=== PATIENT | male | born 1975 | race Caucasian/White ===

== ENCOUNTER 2022-04-02 16:19 | Inpatient (IN) | payer OTHER, SELFPAY ==
--- NOTE | 2022-04-02 16:55 | ED.PSYCH ---
HPI - Psych General Chief Complaint: Psychiatric Symptoms <DEREK Tyler Last Filed: 04/02/22 18:20> Stated Complaint: sect 12 increased depression <DEREK Tyler Last Filed: 04/02/22 18:20> Time Seen by Provider: 04/02/22 16:42 <DEREK Tyler Last Filed: 04/02/22 18:20> Source: patient and RN notes reviewed <DEREK Tyler Last Filed: 04/02/22 18:20> Mode of arrival: EMS <DEREK Tyler Last Filed: 04/02/22 18:20> Limitations: no limitations <DEREK Tyler Last Filed: 04/02/22 18:20> History of Present Illness HPI Narrative: 46-year-old male with a history of schizophrenia presenting with increased depression. The patient arrives from [facility] in [place], [place] where he states he has been having trouble sleeping and has been feeling as though his thoughts are racing and that he cannot slow them down. This has been causing him to feel agitated and uneasy. He also reports that he stopped smoking 6 days ago which has also been contributing to this. He denies any auditory, visual, or tactile hallucinations. He denies any SI or HI. He states that he has been taking all of his psychiatric medications as prescribed though the staff at the [facility] told him that he may need to have his medications adjusted due to his current symptoms which is why he presents today. He denies any chest pain, shortness of breath, dizziness, headache, vision changes, fever, or chills. <DEREK Tyler Last Filed: 04/02/22 18:20> MD complaint: feels depressed and anxiety <DEREK Tyler Last Filed: 04/02/22 18:20> Related Data Home Medications: Home Medications Medication Instructions Recorded Confirmed liua root extract 500 mg 500 mg PO DAILY 04/02/22 04/02/22 capsule duloxetine 60 mg capsule,delayed 1 cap PO QAM 04/02/22 04/02/22 release fenofibrate 160 mg tablet 1 tab PO DAILY 04/02/22 04/02/22 losartan 50 mg tablet 1 tab PO DAILY 04/02/22 04/02/22 metformin 500 mg tablet 1 tab PO DAILY 04/02/22 04/02/22 ziprasidone HCl 40 mg capsule 1 cap PO BID 04/02/22 04/02/22 zolpidem 10 mg tablet 1 tab PO BEDTIME PRN insomnia 04/02/22 04/02/22 <DEREK Tyler Last Filed: 04/02/22 18:20> Allergies/Adverse Reactions: Allergies Allergy/AdvReac Type Severity Reaction Status Date / Time No Known Allergies Allergy Unverified 04/12/20 19:45 [No Known Allergies*] <DEREK Tyler Last Filed: 04/02/22 18:20> Review of Systems Review of Systems: Constitutional : No Weight loss, No Fever, No Chills, No Fatigue, No Malaise ENT/Mouth : No sore throat, No Rhinorrhea Eyes: No Eye Pain, No Swelling, No Redness Cardiovascular : No Chest Pain, No SOB, No Dyspnea on Exertion, No Orthopnea, No Edema, No Palpitations Respiratory : No Cough, No Sputum, No Wheezing Gastrointestinal : No Nausea, No Vomiting, No Diarrhea, No Constipation, No abdominal Pain, No Hematochezia, No Melena Genitourinary : No Dysuria, No Urinary Frequency, No Hematuria, Musculoskeletal : No joint pain, No Myalgias, No Joint Swelling Skin : No Skin Lesions, No rash Neuro : No Weakness, No Numbness, No Dizziness, No Headache Psych : +anxiety +depression All other systems reviewed and are negative <DEREK Tyler Last Filed: 04/02/22 18:20> Yes all other systems are reviewed and are negative <DEREK Tyler Last Filed: 04/02/22 18:20> [facility] Past Medical History Attestation statement: The following information was validated with the patient. <DEREK Tyler Last Filed: 04/02/22 18:20> Source: old records reviewed and nursing notes reviewed <DEREK Tyler Last Filed: 04/02/22 18:20> Social History Social History: Social History Advance Directives: No Advance Directives Information Provided: No <DEREK Tyler - Last Filed: 04/02/22 18:20> Physical Exam Vital Signs: Vital Signs: Last Vital Signs Temp 97.1 F 04/03/22 04:55 Pulse 74 04/03/22 04:55 Resp 17 04/03/22 04:55 BP 144/64 H 04/03/22 04:55 Pulse Ox 96 04/03/22 04:55 O2 Del Method 04/03/22 04:55 BMI result Body Mass Index 30.7 vss <DEREK Tyler - Last Filed: 04/02/22 18:20> Vital Signs: Last Vital Signs Temp 97.1 F 04/03/22 04:55 Pulse 74 04/03/22 04:55 Resp 17 04/03/22 04:55 BP 144/64 H 04/03/22 04:55 Pulse Ox 96 04/03/22 04:55 O2 Del Method 04/03/22 04:55 BMI result Body Mass Index 30.7 <Leonid Oswald MD - Last Filed: 04/03/22 06:30> Appearance: Alert.? Oriented X3.? No acute distress.? Head: Normocephalic, atraumatic, no step-offs or deformities Eyes: Pupils equal, round and reactive to light.? Neck: Normal inspection.? Neck supple.? CVS: Normal heart rate and rhythm.? Pulses normal.? Respiratory: No respiratory distress.? Breath sounds normal.? Abdomen: Soft and nontender.? Skin: Skin warm and dry.? Normal skin color.? Normal skin turgor.? Extremities: No lower extremity edema.? No calf ttp. 5/5 strength to bilateral upper and lower extremities Neuro: Oriented X 3.? No motor deficit.? No sensory deficit. CN 2-12 intact <DEREK Tyler - Last Filed: 04/02/22 18:20> Course Reevaluation(s) Reevaluation #1: CBC and chemistry is within normal limits. UA is negative. U tox is positive for marijuana. COVID-19 negative. Behavioral health evaluation pending. At this time, patient will be placed into physician observation to allow more time for BHN evaluation. At time of placement, patient was calm, cooperative, and stable. Will continue to monitor. <DEREK Tyler - Last Filed: 04/02/22 18:20> CBC and chemistry is within normal limits. UA is negative. U tox is positive for marijuana. COVID-19 negative. Behavioral health evaluation pending. At this time, patient will be placed into physician observation to allow more time for BHN evaluation. At time of placement, patient was calm, cooperative, and stable. Will continue to monitor. <Leonid Oswald MD - Last Filed: 04/03/22 06:30> Time: 18:00 <DEREK Tyler - Last Filed: 04/02/22 18:20> MDM - Psych MDM Narrative Medical decision making narrative: 16:45 46 y/o male with a PMHx of schizophrenia who presents with anxiety, depression, and agitation. Reports lack of sleep and feeling restless recently. Also dealing with tobacco withdrawal. Compliant with medications. PE is unremarkable. Plan to obtain basic labs, ethanol level, urine toxicology, and medically clear. Will consult behavioral health for evaluation. <DEREK Tyler - Last Filed: 04/02/22 18:20> Medical Records Attestation: I reviewed the patient's medical records. <DEREK Tyler - Last Filed: 04/02/22 18:20> Lab Data Attestation: I reviewed the patient's lab results. <DEREK Tyler - Last Filed: 04/02/22 18:20> Result diagrams: : 04/02/22 17:34 04/02/22 17:34 <DEREK Tyler - Last Filed: 04/02/22 18:20> Labs: Lab Results 04/02/22 04/02/22 04/02/22 Range/Units 16:50 16:50 16:50 WBC (4.8-10.8) X10*3/uL RBC (4.60-5.80) X10*6/uL Hgb (14.0-18.0) g/dl Hct (42.0-52.0) % MCV (80.0-98.0) fL MCH (27.0-33.0) pg MCHC (31.0-36.0) g/dl RDW (11.0-16.0) % Plt Count (160-400) X10*3/uL MPV (9.4-12.4) fL Immature Gran % (Auto) (0.0-0.4) % Neut % (Auto) (45-73) % Lymph % (Auto) (20-40) % [place] % (Auto) (2-11) % Eos % (Auto) (0-4) % Baso % (Auto) (0-2) % Lymph # (Auto) (1.2-4.9) X10*3/uL [place] # (Auto) (0.1-1.2) X10*3/uL Eos # (Auto) (0.0-0.4) X10*3/uL Baso # (Auto) (0.0-0.2) X10*3/uL Abs Immat Gran (auto) (0.00-0.03) X10*3/uL Absolute Neuts (auto) (2.0-8.3) x10*3/uL Absolute Nucleated RBC (0.0-0.012) X10*3/uL Nucleated RBC % (auto) (0.0-0.2) /100WBC Sodium (135-145) mmol/L Potassium (3.3-5.1) mmol/L Chloride (96-108) mmol/L Carbon Dioxide (22-29) mmol/L Anion Gap (12-20) BUN (9-16) mg/dL Creatinine (0.5-1.4) mg/dL Estim Creat Clear Calc Estimated GFR Random Glucose (60-115) mg/dL Calcium (8.4-10.2) mg/dL Magnesium (1.6-2.6) mg/dL Total Bilirubin (0.0-1.0) mg/dL AST (5-37) U/L ALT (0-40) U/L Alkaline Phosphatase (39-117) U/L Total Protein (6.5-8.0) g/dL Albumin (3.5-5.0) g/dL Urine Color Yellow Urine Appearance Clear Urine pH 6.0 (5.0-9.0) Ur Specific [place] <= 1.005 (1.005-1.025) Urine Protein Negative (Neg-Trace) mg/dL Urine Glucose (UA) Negative (Negative) mg/dL Urine Ketones Negative (Negative) mg/dL Urine Blood Negative (Negative) Urine Nitrite Negative (Negative) Ur Leukocyte Esterase Negative (Negative) Urine Opiates Screen Not Detected (Not Detect) Urine Fentanyl Screen Not Detected (Not Detect) Ur Barbiturates Screen Not Detected (Not Detect) Ur Phencyclidine Scrn Not Detected (Not Detect) Ur Amphetamines Screen Not Detected (Not Detect) U Benzodiazepines Scrn Not Detected (Not Detect) Urine Cocaine Screen Not Detected (Not Detect) U Marijuana (THC) Screen POSITIVE H (Not Detect) Ethyl Alcohol mg/dL COVID-19 (ZAIDA) Negative (Negative) COVID-19 Clin Com See Note 04/02/22 04/02/22 Range/Units 17:34 17:34 WBC 9.1 (4.8-10.8) X10*3/uL RBC 4.43 L (4.60-5.80) X10*6/uL Hgb 14.1 (14.0-18.0) g/dl Hct 40.3 L (42.0-52.0) % MCV 91.0 (80.0-98.0) fL MCH 31.8 (27.0-33.0) pg MCHC 35.0 (31.0-36.0) g/dl RDW 12.4 (11.0-16.0) % Plt Count 256 (160-400) X10*3/uL MPV 11.2 (9.4-12.4) fL Immature Gran % (Auto) 0.3 (0.0-0.4) % Neut % (Auto) 59.6 (45-73) % Lymph % (Auto) 27.8 (20-40) % [place] % (Auto) 6.4 (2-11) % Eos % (Auto) 4.9 H (0-4) % Baso % (Auto) 1.0 (0-2) % Lymph # (Auto) 2.5 (1.2-4.9) X10*3/uL [place] # (Auto) 0.6 (0.1-1.2) X10*3/uL Eos # (Auto) 0.4 (0.0-0.4) X10*3/uL Baso # (Auto) 0.1 (0.0-0.2) X10*3/uL Abs Immat Gran (auto) 0.03 (0.00-0.03) X10*3/uL Absolute Neuts (auto) 5.4 (2.0-8.3) x10*3/uL Absolute Nucleated RBC 0.000 (0.0-0.012) X10*3/uL Nucleated RBC % (auto) 0.0 (0.0-0.2) /100WBC Sodium 140 (135-145) mmol/L Potassium 4.0 (3.3-5.1) mmol/L Chloride 105 (96-108) mmol/L Carbon Dioxide 23 (22-29) mmol/L Anion Gap 16 (12-20) BUN 8 L (9-16) mg/dL Creatinine 1.08 (0.5-1.4) mg/dL Estim Creat Clear Calc 103.9 Estimated GFR > 60 Random Glucose 104 (60-115) mg/dL Calcium 9.5 (8.4-10.2) mg/dL Magnesium 2.0 (1.6-2.6) mg/dL Total Bilirubin 0.3 (0.0-1.0) mg/dL AST 28 (5-37) U/L ALT 38 (0-40) U/L Alkaline Phosphatase 43 (39-117) U/L Total Protein 7.1 (6.5-8.0) g/dL Albumin 4.4 (3.5-5.0) g/dL Urine Color Urine Appearance Urine pH (5.0-9.0) Ur Specific [place] (1.005-1.025) Urine Protein (Neg-Trace) mg/dL Urine Glucose (UA) (Negative) mg/dL Urine Ketones (Negative) mg/dL Urine Blood (Negative) Urine Nitrite (Negative) Ur Leukocyte Esterase (Negative) Urine Opiates Screen (Not Detect) Urine Fentanyl Screen (Not Detect) Ur Barbiturates Screen (Not Detect) Ur Phencyclidine Scrn (Not Detect) Ur Amphetamines Screen (Not Detect) U Benzodiazepines Scrn (Not Detect) Urine Cocaine Screen (Not Detect) U Marijuana (THC) Screen (Not Detect) Ethyl Alcohol < 10 mg/dL COVID-19 (ZAIDA) (Negative) COVID-19 Clin Com <DEREK Tyler - Last Filed: 04/02/22 18:20> Lab Results 04/02/22 04/02/22 04/02/22 Range/Units 16:50 16:50 16:50 WBC (4.8-10.8) X10*3/uL RBC (4.60-5.80) X10*6/uL Hgb (14.0-18.0) g/dl Hct (42.0-52.0) % MCV (80.0-98.0) fL MCH (27.0-33.0) pg MCHC (31.0-36.0) g/dl RDW (11.0-16.0) % Plt Count (160-400) X10*3/uL MPV (9.4-12.4) fL Immature Gran % (Auto) (0.0-0.4) % Neut % (Auto) (45-73) % Lymph % (Auto) (20-40) % [place] % (Auto) (2-11) % Eos % (Auto) (0-4) % Baso % (Auto) (0-2) % Lymph # (Auto) (1.2-4.9) X10*3/uL [place] # (Auto) (0.1-1.2) X10*3/uL Eos # (Auto) (0.0-0.4) X10*3/uL Baso # (Auto) (0.0-0.2) X10*3/uL Abs Immat Gran (auto) (0.00-0.03) X10*3/uL Absolute Neuts (auto) (2.0-8.3) x10*3/uL Absolute Nucleated RBC (0.0-0.012) X10*3/uL Nucleated RBC % (auto) (0.0-0.2) /100WBC Sodium (135-145) mmol/L Potassium (3.3-5.1) mmol/L Chloride (96-108) mmol/L Carbon Dioxide (22-29) mmol/L Anion Gap (12-20) BUN (9-16) mg/dL Creatinine (0.5-1.4) mg/dL Estim Creat Clear Calc Estimated GFR Random Glucose (60-115) mg/dL Calcium (8.4-10.2) mg/dL Magnesium (1.6-2.6) mg/dL Total Bilirubin (0.0-1.0) mg/dL AST (5-37) U/L ALT (0-40) U/L Alkaline Phosphatase (39-117) U/L Total Protein (6.5-8.0) g/dL Albumin (3.5-5.0) g/dL Urine Color Yellow Urine Appearance Clear Urine pH 6.0 (5.0-9.0) Ur Specific [place] <= 1.005 (1.005-1.025) Urine Protein Negative (Neg-Trace) mg/dL Urine Glucose (UA) Negative (Negative) mg/dL Urine Ketones Negative (Negative) mg/dL Urine Blood Negative (Negative) Urine Nitrite Negative (Negative) Ur Leukocyte Esterase Negative (Negative) Urine Opiates Screen Not Detected (Not Detect) Urine Fentanyl Screen Not Detected (Not Detect) Ur Barbiturates Screen Not Detected (Not Detect) Ur Phencyclidine Scrn Not Detected (Not Detect) Ur Amphetamines Screen Not Detected (Not Detect) U Benzodiazepines Scrn Not Detected (Not Detect) Urine Cocaine Screen Not Detected (Not Detect) U Marijuana (THC) Screen POSITIVE H (Not Detect) Ethyl Alcohol mg/dL COVID-19 (ZAIDA) Negative (Negative) COVID-19 Clin Com See Note 04/02/22 04/02/22 Range/Units 17:34 17:34 WBC 9.1 (4.8-10.8) X10*3/uL RBC 4.43 L (4.60-5.80) X10*6/uL Hgb 14.1 (14.0-18.0) g/dl Hct 40.3 L (42.0-52.0) % MCV 91.0 (80.0-98.0) fL MCH 31.8 (27.0-33.0) pg MCHC 35.0 (31.0-36.0) g/dl RDW 12.4 (11.0-16.0) % Plt Count 256 (160-400) X10*3/uL MPV 11.2 (9.4-12.4) fL Immature Gran % (Auto) 0.3 (0.0-0.4) % Neut % (Auto) 59.6 (45-73) % Lymph % (Auto) 27.8 (20-40) % [place] % (Auto) 6.4 (2-11) % Eos % (Auto) 4.9 H (0-4) % Baso % (Auto) 1.0 (0-2) % Lymph # (Auto) 2.5 (1.2-4.9) X10*3/uL [place] # (Auto) 0.6 (0.1-1.2) X10*3/uL Eos # (Auto) 0.4 (0.0-0.4) X10*3/uL Baso # (Auto) 0.1 (0.0-0.2) X10*3/uL Abs Immat Gran (auto) 0.03 (0.00-0.03) X10*3/uL Absolute Neuts (auto) 5.4 (2.0-8.3) x10*3/uL Absolute Nucleated RBC 0.000 (0.0-0.012) X10*3/uL Nucleated RBC % (auto) 0.0 (0.0-0.2) /100WBC Sodium 140 (135-145) mmol/L Potassium 4.0 (3.3-5.1) mmol/L Chloride 105 (96-108) mmol/L Carbon Dioxide 23 (22-29) mmol/L Anion Gap 16 (12-20) BUN 8 L (9-16) mg/dL Creatinine 1.08 (0.5-1.4) mg/dL Estim Creat Clear Calc 103.9 Estimated GFR > 60 Random Glucose 104 (60-115) mg/dL Calcium 9.5 (8.4-10.2) mg/dL Magnesium 2.0 (1.6-2.6) mg/dL Total Bilirubin 0.3 (0.0-1.0) mg/dL AST 28 (5-37) U/L ALT 38 (0-40) U/L Alkaline Phosphatase 43 (39-117) U/L Total Protein 7.1 (6.5-8.0) g/dL Albumin 4.4 (3.5-5.0) g/dL Urine Color Urine Appearance Urine pH (5.0-9.0) Ur Specific [place] (1.005-1.025) Urine Protein (Neg-Trace) mg/dL Urine Glucose (UA) (Negative) mg/dL Urine Ketones (Negative) mg/dL Urine Blood (Negative) Urine Nitrite (Negative) Ur Leukocyte Esterase (Negative) Urine Opiates Screen (Not Detect) Urine Fentanyl Screen (Not Detect) Ur Barbiturates Screen (Not Detect) Ur Phencyclidine Scrn (Not Detect) Ur Amphetamines Screen (Not Detect) U Benzodiazepines Scrn (Not Detect) Urine Cocaine Screen (Not Detect) U Marijuana (THC) Screen (Not Detect) Ethyl Alcohol < 10 mg/dL COVID-19 (ZAIDA) (Negative) COVID-19 Clin Com <Leonid Oswald MD - Last Filed: 04/03/22 06:30> Critical Care Time Critical Care Time Critical Care Time: No <DEREK Tyler - Last Filed: 04/02/22 18:20> Discharge Plan Discharge Clinical Impression: Depression, Acute anxiety <DEREK Tyler - Last Filed: 04/02/22 18:20> Patient Disposition: Still a Patient <DEREK Tyler - Last Filed: 04/02/22 18:20> Prescriptions: No Action losartan 50 mg tablet 1 tab PO DAILY metformin 500 mg tablet 1 tab PO DAILY ziprasidone HCl 40 mg capsule 1 cap PO BID zolpidem 10 mg tablet 1 tab PO BEDTIME PRN (Reason: insomnia) duloxetine 60 mg capsule,delayed release(DR/EC) 1 cap PO QAM fenofibrate 160 mg tablet 1 tab PO DAILY ashwagandha root extract 500 mg Capsule 500 mg PO DAILY <DEREK Tyler - Last Filed: 04/02/22 18:20>
[2022-04-02 17:00] VITALS: BP 130/70; BP 136/75; PULSE 70; PULSE 87; RESP 20; TEMP 36.1; O2SAT 97; BMI 30.7
[2022-04-02 17:14] LABS: Appearance Urine Clear; Color Urine Yellow; Glucose Urine UA Negative (Negative); Leukocyte Esterase Urine Negative (Negative); Nitrite Urine Negative (Negative); Specific Gravity - Urine <= 1.005 (1.005-1.025); Urine Blood Negative (Negative); Urine Ketones Negative (Negative); Urine Protein Negative (Neg-Trace)
[2022-04-02 17:27] LABS: COVID-19 Test Negative (Negative); IDNOW Serial# 9DB6401D
[2022-04-02 17:30] LABS: Amphetamine Screen Urine Not Detected (Not Detect); Barbiturates, Urine Not Detected (Not Detect); Benzodiazepines Screen Urine Not Detected (Not Detect); Cannabinoid Screen Urine POSITIVE (Not Detect); Cocaine Screen Urine Not Detected (Not Detect); Fentanyl, urine Not Detected (Not Detect); Opiate Screen Urine Not Detected (Not Detect); Phencyclidine Screen Urine Not Detected (Not Detect)
[2022-04-02 17:39] LABS: MANUAL DIFF FLAG NO
--- NOTE | 2022-04-02 17:39 | PHA.MEDREC ---
Pharmacy Consult ? Medication Reconciliation Pharmacy has completed the medication reconciliation. 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
[2022-04-02 17:55] LABS: Alanine Aminotransferase 38 U/L (0-40); Albumin Level 4.4 g/dL (3.5-5.0); Alkaline Phosphatase 43 U/L (39-117); Anion Gap 16 (12-20); Aspartate Amino Transferase 28 U/L (5-37); Bilirubin Total 0.3 mg/dL (0.0-1.0); Blood Urea Nitrogen 8 mg/dL (9-16); Calcium 9.5 mg/dL (8.4-10.2); Carbon Dioxide 23 mmol/L (22-29); Chloride 105 mmol/L (96-108); Creatinine Clr Calc Pharmacy 103.9; Estimated Glomerular Filt Rate > 60; Ethanol < 10 mg/dL; Glucose Random 104 mg/dL (60-115); Sodium 140 mmol/L (135-145); Total Protein 7.1 g/dL (6.5-8.0)
[2022-04-02 18:04] LABS: Basophils Absolute Auto 0.1 X10*3/uL (0.0-0.2); Eosinophils Absolute Auto 0.4 X10*3/uL (0.0-0.4); Eosinophils Percent Auto 4.9 % (0-4); Hematocrit 40.3 % (42.0-52.0); Hemoglobin 14.1 g/dl (14.0-18.0); Imm Gran Abs Auto 0.03 X10*3/uL (0.00-0.03); Imm Gran Pct Auto 0.3 % (0.0-0.4); Lymphocytes Absolute Auto 2.5 X10*3/uL (1.2-4.9); Lymphocytes Percent Auto 27.8 % (20-40); Mean Corpuscular Hemoglobin 31.8 pg (27.0-33.0); Mean Platelet Volume 11.2 fL (9.4-12.4); Monocytes Absolute Auto 0.6 X10*3/uL (0.1-1.2); Monocytes Percent Auto 6.4 % (2-11); Neutrophils Absolute Auto 5.4 x10*3/uL (2.0-8.3); Neutrophils Percent Auto 59.6 % (45-73); Platelet Count 256 X10*3/uL (160-400); Red Blood Count 4.43 X10*6/uL (4.60-5.80); Red Cell Distribution Width 12.4 % (11.0-16.0); White Blood Count 9.1 X10*3/uL (4.8-10.8)
[2022-04-02] MEDS: Ziprasidone 40 MG CAPSULE PO (22:16)
[2022-04-02] MEDS: Zolpidem Tartrate 5 MG TABLET PO (22:22)
--- NOTE | 2022-04-03 | ECG_ITS ---
Test Reason : med clearance Blood Pressure : / mmHG Vent. Rate : 086 BPM Atrial Rate : 089 BPM P-R Int : 152 ms QRS Dur : 094 ms QT Int : 388 ms P-R-T Axes : 060 -01 006 degrees QTc Int : 464 ms Sinus rhythm with Premature supraventricular complexes Nonspecific T wave abnormality Abnormal ECG When compared with ECG of 07-JUN-2019 09:29, Premature supraventricular complexes are now Present Nonspecific T wave abnormality now evident in Lateral leads Referred By: Leonid Oswald Electronically Signed By:STORM ROBIN
[2022-04-03 04:55] VITALS: BP 144/64; PULSE 74; RESP 17; TEMP 36.2; O2SAT 96
--- NOTE | 2022-04-03 06:24 | PC.NURSE ---
Patient slept through the night, no distress observed/reported, medication compliant, VSS, behavior appropriate, disposition per [facility] is section 12 inpatient bed search, will continue to monitor.
[2022-04-03] MEDS: DULoxetine HCl 60 MG CAPSULE.DR PO (10:00)
[2022-04-03] MEDS: Losartan Potassium 50 MG TABLET PO (10:00)
[2022-04-03] MEDS: metFORMIN HCl 500 MG TABLET PO (10:04)
[2022-04-03] MEDS: Ziprasidone 40 MG CAPSULE PO ×2 (10:43→21:42)
[2022-04-03] MEDS: Fenofibrate 160 MG TABLET PO (10:43)
[2022-04-03 12:55] VITALS: BP 115/81; PULSE 86; RESP 18; TEMP 36.6; O2SAT 95
--- NOTE | 2022-04-03 15:00 | PC.NURSE ---
pt's mom visited him this afternoon. pt voluntarily agreed to inpatient admission to [facility].
[2022-04-03 19:30] VITALS: BP 137/66; PULSE 72; RESP 16; TEMP 36.6; O2SAT 97
--- NOTE | 2022-04-03 20:54 | PC.NURSE ---
Pt is 46-year-old Italian-speaking, COVID-negative male admitted from [facility] ED on a CV with ruminative thoughts. Pt was in [facility] program where the director requested assessment of pt due to lack of progress while on the unit.? ??During nursing assessment, pt was A&O, flat, cooperative, distracted, with delayed responses and intense gaze, c/o racing thoughts. Appeared anxious with congruent affect. Pt?s stated goal for treatment is to ?quit smoking, become a vegetarian, get off medication and develop new coping skills.? MedHx: Smoker, though pt sts he quit last week when he came to hospital. Pt sts he thinks he has sleep apnea per a friend?s observation. PsycheHx: Unspecified schizophrenia spectrum and other psychotic disorder.
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
[2022-04-03] MEDS: Melatonin 3 MG TABLET 6 MG PO (21:42)
[2022-04-04 09:00] VITALS: BP 149/75; PULSE 82; RESP 16; TEMP 36.6; O2SAT 99
[2022-04-04 09:09] LABS: Estimated Average Glucose 103 mg/dL; Hemoglobin A1c % 5.2 %
[2022-04-04 09:29] LABS: Alanine Aminotransferase 35 U/L (0-40); Albumin Level 4.3 g/dL (3.5-5.0); Alkaline Phosphatase 49 U/L (39-117); Anion Gap 15 (12-20); Aspartate Amino Transferase 23 U/L (5-37); Bilirubin Direct 0.2 mg/dL (0.0-0.5); Bilirubin Total 0.5 mg/dL (0.0-1.0); Blood Urea Nitrogen 11 mg/dL (9-16); Calcium 9.5 mg/dL (8.4-10.2); Carbon Dioxide 25 mmol/L (22-29); Chloride 105 mmol/L (96-108); Cholesterol 159 mg/dL; Creatinine Clr Calc Pharmacy 91.2; Estimated Glomerular Filt Rate > 60; Glucose Fasting 94 mg/dL (60-99); HDL Cholesterol 31 mg/dL; LDL Cholesterol Calculated 94 mg/dl; Potassium 4.3 mmol/L (3.3-5.1); Sodium 141 mmol/L (135-145); Total Protein 6.8 g/dL (6.5-8.0); Triglycerides 170 mg/dL
[2022-04-04 09:37] LABS: Free T4 (Free Thyroxine) 1.02 ng/dL (0.71-1.85); Thyroid Stimulating Hormone 0.76 uIU/mL (0.32-4.0)
[2022-04-04 09:56] LABS: Folate 9.8 ng/mL (> or = 4.0); Vitamin B12 461 pg/mL (200-900)
[2022-04-04] MEDS: DULoxetine HCl 60 MG CAPSULE.DR PO (10:49)
[2022-04-04] MEDS: metFORMIN HCl 500 MG TABLET PO (10:49)
[2022-04-04] MEDS: Ziprasidone 40 MG CAPSULE PO ×2 (10:50→20:43)
[2022-04-04] MEDS: Losartan Potassium 50 MG TABLET PO (10:53)
[2022-04-04] MEDS: Nicotine 21 MG PATCH.TD24 TRANSDERMA (10:54)
[2022-04-04] MEDS: Fenofibrate 160 MG TABLET PO (10:58)
--- NOTE | 2022-04-04 12:26 | P.PNPSI_ITS ---
Subjective Subjective Date of Service: 04/04/22 Reason For Visit: Disorganization Subjective Notes: Conditional Voluntary Interim History: Pt reports he came to inpatient unit at request of his mother. He reports he is not sleeping, has recing thoughts no SI/HI. He denies VH/AH but while meeting pt whispering and talking to someone who was not there. He reports he wants to come off all medications. He states due to weight gain- which this advertising copywriter states may happen with antipsychotic but later pt states he wants to come off all his medical medication including medication to manage his DM, cholesterol, HTN. Despite education pt that medical medication not causing weight gain, he insists he need to come off all of them as he has low self esteem due to weight gain. pt informed about if imminent risk to self or other team may need to file for involuntary treatment- funes warning given again. Medication Compliance: Yes Side effects from medications: No Review of Systems Review of Systems CVS: No c/o chest pain, palpitations, no SOB VIDEOTAPE EDITOR: No c/o dizziness, headache GI: No c/o Nausea, Vomiting, diarrhea, constipation or heartburn Yes all other systems are reviewed and are negative Mental Status Exam Mental Status Exam Narrative: A&O. Causal attire, overweight, dyed hair, unkempt appearance. Good eye contact, attentive. No Tics or Tremors. No abnormal involuntary movements. Calm, cooperative to a point but pt is tired, wants to go to bed. Non-pressured speech, spontaneous with regular rate and rhythm, normal volume and prosody. No prolonged speech latency or dysarthria. Mood is ?depressed,? affect is constricted. Denies SI/SIB/HI upon inquiry. Denies A/VH or delusional thought content. Thoughts are ruminative. No known cognitive or memory impairment. Insight/ Judgment limited/ poor. Diagnostics Vital Signs (24Hr): Vital Signs - 24 hr 04/04/22 09:00 04/04/22 20:48 Temperature 97.8 F 97.3 F Pulse Rate 82 118 H Respiratory Rate 16 16 Blood Pressure 149/75 H 134/78 Pulse Oximetry 99 98 Oxygen Delivery Method Room Air Room Air BMI result Body Mass Index 30.7 Labs Results: 04/02/22 17:34 04/04/22 08:19 Labs: Laboratory Results - last 48 hr 04/04/22 04/04/22 04/04/22 08:19 08:19 08:19 Sodium 141 Potassium 4.3 Chloride 105 Carbon Dioxide 25 Anion Gap 15 BUN 11 Creatinine 1.23 Estim Creat Clear Calc 91.2 Estimated GFR > 60 Fasting Glucose 94 Estimat Average Glucose 103 Hemoglobin A1c % 5.2 Calcium 9.5 Total Bilirubin 0.5 Direct Bilirubin 0.2 AST 23 ALT 35 Alkaline Phosphatase 49 Total Protein 6.8 Albumin 4.3 Triglycerides 170 Cholesterol 159 LDL Cholesterol, Calc 94 HDL Cholesterol 31 Vitamin B12 461 Folate 9.8 TSH 0.76 Free T4 1.02 Medications Medications Current Medications Acetaminophen (Acetaminophen 325 Mg Tablet) 650 mg PO Q6H PRN PRN Reason: Headache/Pain Mild Scale (1-3) Al Hydroxide/Mg Hydroxide (Magnesium Hydrox/Alum Hydrox 30 Ml Oral.Susp) 30 ml PO Q6H PRN PRN Reason: Heartburn/Nausea Duloxetine HCl (Duloxetine Hcl 60 Mg Capsule.Dr) 60 mg PO DAILY [facility] Last Admin: 04/04/22 10:49 Dose: 60 mg Fenofibrate (Fenofibrate 160 Mg Tablet) 160 mg PO DAILY [facility] Last Admin: 04/04/22 10:58 Dose: 160 mg Hydroxyzine HCl (Hydroxyzine Hcl 25 Mg Tablet) 25 mg PO Q6H PRN PRN Reason: Anxiety Losartan Potassium (Losartan Potassium 50 Mg Tablet) 50 mg PO DAILY [facility]; Protocol Last Admin: 04/04/22 10:53 Dose: 50 mg Magnesium Hydroxide (Milk Of Magnesia 30 Ml Oral.Susp) 30 ml PO DAILY PRN PRN Reason: Constipation Melatonin (Melatonin 3 Mg Tablet) 6 mg PO BEDTIME PRN PRN Reason: insomnia Last Admin: 04/04/22 20:43 Dose: 6 mg Metformin HCl (Metformin Hcl 500 Mg Tablet) 500 mg PO DAILY [facility] Last Admin: 04/04/22 10:49 Dose: 500 mg Nicotine (Nicotine 21 Mg Patch.Td24) 21 mg TRANSDERMA DAILY [facility] Last Admin: 04/04/22 10:54 Dose: 21 mg Nicotine Polacrilex (Nicotine Polacrilex 2 Mg Gum) 4 mg BUCCAL Q2H PRN PRN Reason: Nicotine Cravings Pt Own (Ashwagandha (600 Mg)) 600 mg PO BIDAC [facility] Last Admin: 04/04/22 18:46 Dose: 600 mg Trazodone HCl (Trazodone Hcl 50 Mg Tablet) 50 mg PO BEDTIME PRN PRN Reason: Insomnia Ziprasidone (Ziprasidone 40 Mg Capsule) 40 mg PO BID [facility] Last Admin: 04/04/22 20:43 Dose: 40 mg Allergies Allergies Allergy/AdvReac Type Severity Reaction Status Date / Time No Known Allergies Allergy Unverified 04/12/20 19:45 [No Known Allergies*] Assessment & Plan Assessment & Plan (1) Schizoaffective disorder, depressive type: Status: Acute Code(s): F25.1 - Schizoaffective disorder, depressive type Plan Rupesh is a 46 y.o. Who carries a dx of schizoaffective disorder. He was seen by [facility] paez in the [facility] Office on 04/02/22 from his [facility]/ respite after reporting feeling worsening sx and not accepting any med changes. He was initially seen by crisis 03/27/22 due to SI without plan/intent, poor sleep, depression, anxiety, racing thoughts, and ?rumination.? Pt says he no longer wants to take psychiatric medications. Utox positive for cannabis. Denies alcohol abuse. Hx of multiple inpatient admissions and homelessness. Remote hx of polysubstance abuse. Plan: Pt says he wants to be slowly weaned off his geodon and cymbalta, understands that this may precipitate withdrawal and says he knows it is a process. Will discontinue ambien 5 mg PRN, as pt wants to get off this, will add melatonin. He is currently med adherent. Will work on assessment, engagement, rapport building. Q15 min safety checks, CV Monitor response to medications. Monitor for safety in the milieu. Discharge on stabilization. Patient seen. Chart reviewed. Discussed with team. Obtain collateral contact info?as needed 04/04- lower cymbalta as may worsen psychosis anyway. continue all other meds. I spent minutes with the patient and/or on the patient floor today, greater than?50% of which was spent counseling/coordinating care. Reason for contiued inpatient stay Substantial Risk for: inability to function
[2022-04-04] MEDS: Melatonin 3 MG TABLET 6 MG PO (20:43)
[2022-04-04 20:48] VITALS: BP 134/78; PULSE 118; RESP 16; TEMP 36.3; O2SAT 98
[2022-04-05 06:00] VITALS: BP 129/76; PULSE 88; RESP 16; TEMP 36.6; O2SAT 98
[2022-04-05] MEDS: DULoxetine HCl 30 MG CAPSULE.DR PO (08:42)
[2022-04-05] MEDS: Fenofibrate 160 MG TABLET PO (08:42)
[2022-04-05] MEDS: Ziprasidone 40 MG CAPSULE PO ×2 (08:42→21:47)
[2022-04-05] MEDS: metFORMIN HCl 500 MG TABLET PO (08:43)
[2022-04-05] MEDS: Losartan Potassium 50 MG TABLET PO (08:43)
--- NOTE | 2022-04-05 16:51 | P.PNPSI_ITS ---
Subjective Subjective Date of Service: 04/05/22 Reason For Visit: Disorganization Subjective Notes: Conditional Voluntary Interim History: Patient somewhat disheveled passive withdrawn somewhat isolative. Generally denies all symptoms. Difficulty engaging passive denies all symptoms Medication Compliance: Yes Mental Status Exam Mental Status Exam Narrative: Patient disheveled minimally engaged poverty of content seems lethargic. Cannot really explain why he is in the high. Mood is described as okay anxiety observed denies thoughts of harm to himself or others denies hallucinations no gross delusional material he is seen talking to himself repeatedly. Not aggressive insight limited Diagnostics Vital Signs (24Hr): Vital Signs - 24 hr 04/06/22 06:00 04/06/22 20:30 Temperature 96.9 F 98.0 F Pulse Rate 87 104 H Respiratory Rate 18 18 Blood Pressure 156/86 H 182/99 H Pulse Oximetry 100 97 Oxygen Delivery Method Room Air Room Air BMI result Body Mass Index 30.7 Labs Results: 04/02/22 17:34 04/04/22 08:19 Medications Medications Current Medications Acetaminophen (Acetaminophen 325 Mg Tablet) 650 mg PO Q6H PRN PRN Reason: Headache/Pain Mild Scale (1-3) Al Hydroxide/Mg Hydroxide (Magnesium Hydrox/Alum Hydrox 30 Ml Oral.Susp) 30 ml PO Q6H PRN PRN Reason: Heartburn/Nausea Duloxetine HCl (Duloxetine Hcl 30 Mg Capsule.Dr) 30 mg PO DAILY [facility] Last Admin: 04/06/22 09:19 Dose: 30 mg Fenofibrate (Fenofibrate 160 Mg Tablet) 160 mg PO DAILY [facility]PL[facility] Last Admin: 04/06/22 09:19 Dose: 160 mg Hydroxyzine HCl (Hydroxyzine Hcl 25 Mg Tablet) 25 mg PO Q6H PRN PRN Reason: Anxiety Losartan Potassium (Losartan Potassium 50 Mg Tablet) 50 mg PO DAILY REPLAC[facility] BY [facility]; Protocol Last Admin: 04/06/22 09:19 Dose: 50 mg Magnesium Hydroxide (Milk Of Magnesia 30 Ml Oral.Susp) 30 ml PO DAILY PRN PRN Reason: Constipation Melatonin (Melatonin 3 Mg Tablet) 6 mg PO BEDTIME PRN PRN Reason: insomnia Last Admin: 04/04/22 20:43 Dose: 6 mg Metformin HCl (Metformin Hcl 500 Mg Tablet) 500 mg PO DAILY [facility] Last Admin: 04/06/22 09:19 Dose: 500 mg Nicotine (Nicotine 21 Mg Patch.Td24) 21 mg TRANSDERMA DAILY REPLACED BY [facility] Last Admin: 04/06/22 09:25 Dose: Not Given Nicotine Polacrilex (Nicotine Polacrilex 2 Mg Gum) 4 mg BUCCAL Q2H PRN PRN Reason: Nicotine Cravings Pt Own (Ashwagandha (600 Mg)) 600 mg PO BIDAC REPLACED BY [facility] Last Admin: 04/06/22 15:55 Dose: 600 mg Trazodone HCl (Trazodone Hcl 50 Mg Tablet) 50 mg PO BEDTIME PRN PRN Reason: Insomnia Ziprasidone (Ziprasidone 40 Mg Capsule) 40 mg PO BID REPLACED BY [facility] Last Admin: 04/06/22 20:28 Dose: 40 mg Allergies Allergies Allergy/AdvReac Type Severity Reaction Status Date / Time No Known Allergies Allergy Unverified 04/12/20 19:45 [No Known Allergies*] Assessment & Plan Assessment & Plan (1) Schizoaffective disorder, depressive type: Status: Acute Code(s): F25.1 - Schizoaffective disorder, depressive type Plan Rupesh is a 46 y.o. Who carries a dx of schizoaffective disorder. He was seen by [facility] paez in the [facility] on 04/02/22 from his [facility]/ respite after reporting feeling worsening sx and not accepting any med changes. He was initially seen by crisis 03/27/22 due to SI without plan/intent, poor sleep, depression, anxiety, racing thoughts, and ?rumination.? Pt says he no longer wants to take psychiatric medications. Utox positive for cannabis. Denies alcohol abuse. Hx of multiple inpatient admissions and homelessness. Remote hx of polysubstance abuse. Plan: Pt says he wants to be slowly weaned off his geodon and cymbalta, understands that this may precipitate withdrawal and says he knows it is a process. Will discontinue ambien 5 mg PRN, as pt wants to get off this, will add melatonin. He is currently med adherent. Will work on assessment, engagement, rapport building. Q15 min safety checks, CV Monitor response to medications. Monitor for safety in the milieu. Discharge on stabilization. Patient seen. Chart reviewed. Discussed with team. Obtain collateral contact info?as needed 04/04- lower cymbalta as may worsen psychosis anyway. continue all other meds. 04/05/2022. Might benefit from long-acting injectable consider metformin Continue plan of care patient isolated withdrawn unable to give clear history went trying get collateral information I spent minutes with the patient and/or on the patient floor today, greater than?50% of which was spent counseling/coordinating care. Patient educated on: medication risk/benefits Informed Consent: further education needed Reason for contiued inpatient stay Substantial Risk for: inability to function, rapid decompensation and med/psych decompensation
[2022-04-05 20:23] VITALS: BP 153/70; PULSE 88; RESP 18; TEMP 36.7; O2SAT 96
[2022-04-06 06:00] VITALS: BP 156/86; PULSE 87; RESP 18; TEMP 36.1; O2SAT 100
[2022-04-06] MEDS: DULoxetine HCl 30 MG CAPSULE.DR PO (09:19)
[2022-04-06] MEDS: Ziprasidone 40 MG CAPSULE PO ×2 (09:19→20:28)
[2022-04-06] MEDS: metFORMIN HCl 500 MG TABLET PO (09:19)
[2022-04-06] MEDS: Losartan Potassium 50 MG TABLET PO (09:19)
[2022-04-06] MEDS: Fenofibrate 160 MG TABLET PO (09:19)
--- NOTE | 2022-04-06 15:56 | HO.PSYCHPN ---
Subjective Subjective Date of Service: 04/06/22 Reason For Visit: Disorganization Subjective Notes: Conditional Voluntary Interim History: Patient anxious dysphoric withdrawn. Guarded not forthcoming has been taking medication Medication Compliance: Yes Mental Status Exam Mental Status Exam Narrative: Patient disheveled minimally engaged poverty of content seems lethargic. Cannot really explain why he is in the high. Mood is described as okay anxiety observed denies thoughts of harm to himself or others denies hallucinations no gross delusional material he is seen talking to himself repeatedly. Not aggressive insight limited poverty of content patient describes mood is bored seems anxious preoccupied Diagnostics Vital Signs (24Hr): Vital Signs - 24 hr 04/06/22 20:30 04/07/22 09:45 Temperature 98.0 F 97.7 F Pulse Rate 104 H 92 Respiratory Rate 18 20 Blood Pressure 182/99 H 143/83 H Pulse Oximetry 97 100 Oxygen Delivery Method Room Air Room Air BMI result Body Mass Index 30.7 Labs Results: 04/02/22 17:34 04/04/22 08:19 Labs: Laboratory Results - last 48 hr 04/07/22 08:34 POC Glucose 128 H Medications Medications Current Medications Acetaminophen (Acetaminophen 325 Mg Tablet) 650 mg PO Q6H PRN PRN Reason: Headache/Pain Mild Scale (1-3) Al Hydroxide/Mg Hydroxide (Magnesium Hydrox/Alum Hydrox 30 Ml Oral.Susp) 30 ml PO Q6H PRN PRN Reason: Heartburn/Nausea Duloxetine HCl (Duloxetine Hcl 30 Mg Capsule.Dr) 30 mg PO DAILY [facility] Last Admin: 04/07/22 09:54 Dose: 30 mg Fenofibrate (Fenofibrate 160 Mg Tablet) 160 mg PO DAILY [facility] Last Admin: 04/07/22 09:54 Dose: 160 mg Hydroxyzine HCl (Hydroxyzine Hcl 25 Mg Tablet) 25 mg PO Q6H PRN PRN Reason: Anxiety Losartan Potassium (Losartan Potassium 50 Mg Tablet) 50 mg PO DAILY [facility]; Protocol Last Admin: 04/07/22 09:54 Dose: 50 mg Magnesium Hydroxide (Milk Of Magnesia 30 Ml Oral.Susp) 30 ml PO DAILY PRN PRN Reason: Constipation Melatonin (Melatonin 3 Mg Tablet) 6 mg PO BEDTIME PRN PRN Reason: insomnia Last Admin: 04/04/22 20:43 Dose: 6 mg Metformin HCl (Metformin Hcl 500 Mg Tablet) 500 mg PO DAILY [facility] Last Admin: 04/07/22 09:54 Dose: 500 mg Nicotine (Nicotine 21 Mg Patch.Td24) 21 mg TRANSDERMA DAILY [facility] Last Admin: 04/07/22 10:16 Dose: Not Given Nicotine Polacrilex (Nicotine Polacrilex 2 Mg Gum) 4 mg BUCCAL Q2H PRN PRN Reason: Nicotine Cravings Pt Own (Ashwagandha (600 Mg)) 600 mg PO BIDAC [facility] Last Admin: 04/07/22 09:54 Dose: 600 mg Trazodone HCl (Trazodone Hcl 50 Mg Tablet) 50 mg PO BEDTIME PRN PRN Reason: Insomnia Ziprasidone (Ziprasidone 40 Mg Capsule) 40 mg PO BID [facility] Last Admin: 04/07/22 09:55 Dose: 40 mg Allergies Allergies Allergy/AdvReac Type Severity Reaction Status Date / Time No Known Allergies Allergy Unverified 04/12/20 19:45 [No Known Allergies*] Assessment & Plan Assessment & Plan (1) Schizoaffective disorder, depressive type: Status: Acute Code(s): F25.1 - Schizoaffective disorder, depressive type Plan Rupesh is a 46 y.o. Who carries a dx of schizoaffective disorder. He was seen by [facility] in the [facility] on 04/02/22 from his [facility]/ respite after reporting feeling worsening sx and not accepting any med changes. He was initially seen by crisis 03/27/22 due to SI without plan/intent, poor sleep, depression, anxiety, racing thoughts, and ?rumination.? Pt says he no longer wants to take psychiatric medications. Utox positive for cannabis. Denies alcohol abuse. Hx of multiple inpatient admissions and homelessness. Remote hx of polysubstance abuse. Plan: Pt says he wants to be slowly weaned off his geodon and cymbalta, understands that this may precipitate withdrawal and says he knows it is a process. Will discontinue ambien 5 mg PRN, as pt wants to get off this, will add melatonin. He is currently med adherent. Will work on assessment, engagement, rapport building. Q15 min safety checks, CV Monitor response to medications. Monitor for safety in the milieu. Discharge on stabilization. Patient seen. Chart reviewed. Discussed with team. Obtain collateral contact info?as needed 04/04- lower cymbalta as may worsen psychosis anyway. continue all other meds. 04/05/2022. Might benefit from long-acting injectable consider metformin Continue plan of care patient isolated withdrawn unable to give clear history went trying get collateral information 04/06/2022 Continue plan of care again trying clarify events leading to hospitalization patient's baseline consider long-acting injectable I spent minutes with the patient and/or on the patient floor today, greater than?50% of which was spent counseling/coordinating care. Reason for contiued inpatient stay Substantial Risk for: inability to function and med/psych decompensation
[2022-04-06 20:30] VITALS: BP 182/99; PULSE 104; RESP 18; TEMP 36.7; O2SAT 97
[2022-04-07 09:26] LABS: Glucose, Whole Blood 128 mg/dL (60-115)
[2022-04-07 09:45] VITALS: BP 143/83; PULSE 92; RESP 20; TEMP 36.5; O2SAT 100
[2022-04-07] MEDS: DULoxetine HCl 30 MG CAPSULE.DR PO (09:54)
[2022-04-07] MEDS: metFORMIN HCl 500 MG TABLET PO (09:54)
[2022-04-07] MEDS: Fenofibrate 160 MG TABLET PO (09:54)
[2022-04-07] MEDS: Losartan Potassium 50 MG TABLET PO (09:54)
[2022-04-07] MEDS: Ziprasidone 40 MG CAPSULE PO ×2 (09:55→20:16)
--- NOTE | 2022-04-07 14:47 | HO.PSYCHPN ---
Subjective Subjective Date of Service: 04/07/22 Reason For Visit: Disorganization Interim History: verbose, vague, circumstantial. poor insight into mental illness and need for treatment. states he does not intend to remain on medications. MD declines to help him taper, referring him to his outpatient provider. pt threatens lawsuit, MD informs pt that MD is not obligated to execute whatever orders pt may deliver him (pt himself characterizes his communication with MD in this situation as a command ). pt agrees to possibly have a meeting with his mother in hospital to discuss any accommodations at their abode which might make it easier for him to remain living there. pt and MD agree to give it a day to think about and then reconvene tomorrow. spoke with pt's mother for 15+ minutes today collecting history from pt. she expressed concern at pt's refusal to take medications and noted some recent personal events which she believes bear on his presentation to the hospital, such as the loss of relationship with a love interest and the absence for several months of his usual therapist. per staff, visible, pleasant. declined 1:1 mtgs yesterday. slept well overnight. identified intrusive, negative thoughts as the problem. Mental Status Exam Mental Status Exam Narrative: A&O. Causal attire, overweight, dyed hair, unkempt appearance. Good eye contact, attentive. No Tics or Tremors. No abnormal involuntary movements. somewhat agitated, cooperative. speech increased in rate and amount, decr latency. nml prosody and loudness. affect is constricted, hyper-intense, min-labile. no SI/HI/AVH expressed. Thoughts are ruminative. No known cognitive or memory impairment. Insight/ Judgment limited/ poor. Diagnostics Vital Signs (24Hr): Vital Signs - 24 hr 04/06/22 20:30 04/07/22 09:45 Temperature 98.0 F 97.7 F Pulse Rate 104 H 92 Respiratory Rate 18 20 Blood Pressure 182/99 H 143/83 H Pulse Oximetry 97 100 Oxygen Delivery Method Room Air Room Air BMI result Body Mass Index 30.7 Labs Results: 04/02/22 17:34 04/04/22 08:19 Labs: Laboratory Results - last 48 hr 04/07/22 08:34 POC Glucose 128 H Medications Medications Current Medications Acetaminophen (Acetaminophen 325 Mg Tablet) 650 mg PO Q6H PRN PRN Reason: Headache/Pain Mild Scale (1-3) Al Hydroxide/Mg Hydroxide (Magnesium Hydrox/Alum Hydrox 30 Ml Oral.Susp) 30 ml PO Q6H PRN PRN Reason: Heartburn/Nausea Duloxetine HCl (Duloxetine Hcl 30 Mg Capsule.Dr) 30 mg PO DAILY [facility] Last Admin: 04/07/22 09:54 Dose: 30 mg Fenofibrate (Fenofibrate 160 Mg Tablet) 160 mg PO DAILY [facility] Last Admin: 04/07/22 09:54 Dose: 160 mg Hydroxyzine HCl (Hydroxyzine Hcl 25 Mg Tablet) 25 mg PO Q6H PRN PRN Reason: Anxiety Losartan Potassium (Losartan Potassium 50 Mg Tablet) 50 mg PO DAILY [facility]; Protocol Last Admin: 04/07/22 09:54 Dose: 50 mg Magnesium Hydroxide (Milk Of Magnesia 30 Ml Oral.Susp) 30 ml PO DAILY PRN PRN Reason: Constipation Melatonin (Melatonin 3 Mg Tablet) 6 mg PO BEDTIME PRN PRN Reason: insomnia Last Admin: 04/04/22 20:43 Dose: 6 mg Metformin HCl (Metformin Hcl 500 Mg Tablet) 500 mg PO DAILY [facility] Last Admin: 04/07/22 09:54 Dose: 500 mg Nicotine (Nicotine 21 Mg Patch.Td24) 21 mg TRANSDERMA DAILY [facility] Last Admin: 04/07/22 10:16 Dose: Not Given Nicotine Polacrilex (Nicotine Polacrilex 2 Mg Gum) 4 mg BUCCAL Q2H PRN PRN Reason: Nicotine Cravings Pt Own (Ashwagandha (600 Mg)) 600 mg PO BIDAC [facility] Last Admin: 04/07/22 09:54 Dose: 600 mg Trazodone HCl (Trazodone Hcl 50 Mg Tablet) 50 mg PO BEDTIME PRN PRN Reason: Insomnia Ziprasidone (Ziprasidone 40 Mg Capsule) 40 mg PO BID [facility] Last Admin: 04/07/22 09:55 Dose: 40 mg Allergies Allergies Allergy/AdvReac Type Severity Reaction Status Date / Time No Known Allergies Allergy Unverified 04/12/20 19:45 [No Known Allergies*] Assessment & Plan Assessment & Plan (1) Schizoaffective disorder, depressive type: Status: Acute Code(s): F25.1 - Schizoaffective disorder, depressive type Plan Rupesh is a 46 y.o. Who carries a dx of schizoaffective disorder. He was seen by DEBBY paez in the [facility] on 04/02/22 from his [facility]/ respite after reporting feeling worsening sx and not accepting any med changes. He was initially seen by crisis 03/27/22 due to SI without plan/intent, poor sleep, depression, anxiety, racing thoughts, and ?rumination.? Pt says he no longer wants to take psychiatric medications. Utox positive for cannabis. Denies alcohol abuse. Hx of multiple inpatient admissions and homelessness. Remote hx of polysubstance abuse. Plan: Pt says he wants to be slowly weaned off his geodon and cymbalta, understands that this may precipitate withdrawal and says he knows it is a process. Will discontinue ambien 5 mg PRN, as pt wants to get off this, will add melatonin. He is currently med adherent. Will work on assessment, engagement, rapport building. Q15 min safety checks, CV Monitor response to medications. Monitor for safety in the milieu. Discharge on stabilization. Patient seen. Chart reviewed. Discussed with team. Obtain collateral contact info?as needed 04/04- lower cymbalta as may worsen psychosis anyway. continue all other meds. 04/05/2022. Might benefit from long-acting injectable consider metformin Continue plan of care patient isolated withdrawn unable to give clear history went trying get collateral information 04/06/2022 Continue plan of care again trying clarify events leading to hospitalization patient's baseline consider long-acting injectable 04/07: poor historian, no med changes despite pt's ordering MD to taper meds. pt was referred to his outpt prescriber for that. may have family mtg with mother prior to discharge. likely discharge soon as pt is not interested in therapeutic med changes and is not engaged in Tx on the unit. I spent ___35___ minutes with the patient and/or on the patient floor today, greater than?50% of which was spent counseling/coordinating care. Reason for contiued inpatient stay Substantial Risk for: inability to function and rapid decompensation
[2022-04-07 20:00] VITALS: BP 172/92; PULSE 97; RESP 16; TEMP 36.9; O2SAT 94
[2022-04-08 08:45] LABS: Glucose, Whole Blood 97 mg/dL (60-115)
[2022-04-08 09:25] VITALS: BP 125/86; PULSE 94; RESP 20; TEMP 36.6; O2SAT 97
[2022-04-08] MEDS: DULoxetine HCl 30 MG CAPSULE.DR PO (09:29)
[2022-04-08] MEDS: Losartan Potassium 50 MG TABLET PO (09:29)
[2022-04-08] MEDS: Fenofibrate 160 MG TABLET PO (09:29)
[2022-04-08] MEDS: Ziprasidone 40 MG CAPSULE PO ×2 (09:29→21:38)
[2022-04-08] MEDS: metFORMIN HCl 500 MG TABLET PO (09:29)
--- NOTE | 2022-04-08 15:12 | P.PNPSI_ITS ---
Subjective Subjective Date of Service: 04/08/22 Reason For Visit: Disorganization Interim History: calm and cooperative. not nearly as verbose as yesterday. did not ask for taper. resigned to discharge and F/U with outpt providers. discharge planned for . pt signed RAJINDER for sister, spoke with sister for 10-15 minutes, coordinating discharge and providing psycho-ed. per staff, anxious and depressed. visible. overly focussed on peer yesterday, wanting to monopolize her time to pray together. isolative otherwise, although attended at least one group. Mental Status Exam Mental Status Exam Narrative: A&O. Causal attire, overweight, dyed hair, unkempt appearance. Good eye contact, attentive. No Tics or Tremors. No abnormal involuntary movements. calm, cooperative. speech nml rate and amount and latency. nml prosody and loudness. affect is constricted, normo-intense, non-labile. no SI/HI/AVH expressed. Thoughts are flexible and linear. No known cognitive or memory impairment. Insight/ Judgment limited/ poor. Diagnostics Vital Signs (24Hr): Vital Signs - 24 hr 04/07/22 20:00 04/08/22 09:25 Temperature 98.4 F 97.9 F Pulse Rate 97 94 Respiratory Rate 16 20 Blood Pressure 172/92 H 125/86 Pulse Oximetry 94 97 Oxygen Delivery Method Room Air Room Air BMI result Body Mass Index 30.7 Labs Results: 04/02/22 17:34 04/04/22 08:19 Labs: Laboratory Results - last 48 hr 04/07/22 04/08/22 08:34 08:22 POC Glucose 128 H 97 Medications Medications Current Medications Acetaminophen (Acetaminophen 325 Mg Tablet) 650 mg PO Q6H PRN PRN Reason: Headache/Pain Mild Scale (1-3) Al Hydroxide/Mg Hydroxide (Magnesium Hydrox/Alum Hydrox 30 Ml Oral.Susp) 30 ml PO Q6H PRN PRN Reason: Heartburn/Nausea Duloxetine HCl (Duloxetine Hcl 30 Mg Capsule.Dr) 30 mg PO DAILY [facility] Last Admin: 04/08/22 09:29 Dose: 30 mg Fenofibrate (Fenofibrate 160 Mg Tablet) 160 mg PO DAILY [facility] Last Admin: 04/08/22 09:29 Dose: 160 mg Hydroxyzine HCl (Hydroxyzine Hcl 25 Mg Tablet) 25 mg PO Q6H PRN PRN Reason: Anxiety Losartan Potassium (Losartan Potassium 50 Mg Tablet) 50 mg PO DAILY [facility]; Protocol Last Admin: 04/08/22 09:29 Dose: 50 mg Magnesium Hydroxide (Milk Of Magnesia 30 Ml Oral.Susp) 30 ml PO DAILY PRN PRN Reason: Constipation Melatonin (Melatonin 3 Mg Tablet) 6 mg PO BEDTIME PRN PRN Reason: insomnia Last Admin: 04/04/22 20:43 Dose: 6 mg Metformin HCl (Metformin Hcl 500 Mg Tablet) 500 mg PO DAILY [facility] Last Admin: 04/08/22 09:29 Dose: 500 mg Nicotine (Nicotine 21 Mg Patch.Td24) 21 mg TRANSDERMA DAILY [facility] Last Admin: 04/08/22 10:20 Dose: Not Given Nicotine Polacrilex (Nicotine Polacrilex 2 Mg Gum) 4 mg BUCCAL Q2H PRN PRN Reason: Nicotine Cravings Pt Own (Ashwagandha (600 Mg)) 600 mg PO BIDAC [facility] Last Admin: 04/08/22 09:32 Dose: 600 mg Trazodone HCl (Trazodone Hcl 50 Mg Tablet) 50 mg PO BEDTIME PRN PRN Reason: Insomnia Ziprasidone (Ziprasidone 40 Mg Capsule) 40 mg PO BID [facility] Last Admin: 04/08/22 09:29 Dose: 40 mg Allergies Allergies Allergy/AdvReac Type Severity Reaction Status Date / Time No Known Allergies Allergy Unverified 04/12/20 19:45 [No Known Allergies*] Assessment & Plan Assessment & Plan (1) Schizoaffective disorder, depressive type: Status: Acute Code(s): F25.1 - Schizoaffective disorder, depressive type Plan Rupesh is a 46 y.o. Who carries a dx of schizoaffective disorder. He was seen by [facility] crisis in the [facility] on 04/02/22 from his [facility]/ respite after reporting feeling worsening sx and not accepting any med changes. He was initially seen by crisis 03/27/22 due to SI without plan/intent, poor sleep, depression, anxiety, racing thoughts, and ?rumination.? Pt says he no longer wants to take psychiatric medications. Utox positive for cannabis. Denies alcohol abuse. Hx of multiple inpatient admissions and homelessness. Remote hx of polysubstance abuse. Plan: Pt says he wants to be slowly weaned off his geodon and cymbalta, understands that this may precipitate withdrawal and says he knows it is a process. Will discontinue ambien 5 mg PRN, as pt wants to get off this, will add melatonin. He is currently med adherent. Will work on assessment, engagement, rapport building. Q15 min safety checks, CV Monitor response to medications. Monitor for safety in the milieu. Discharge on stabilization. Patient seen. Chart reviewed. Discussed with team. Obtain collateral contact info?as needed 04/04- lower cymbalta as may worsen psychosis anyway. continue all other meds. 04/05/2022. Might benefit from long-acting injectable consider metformin Continue plan of care patient isolated withdrawn unable to give clear history went trying get collateral information 04/06/2022 Continue plan of care again trying clarify events leading to hospitalization patient's baseline consider long-acting injectable 04/07: poor historian, no med changes despite pt's ordering MD to taper meds. pt was referred to his outpt prescriber for that. may have family mtg with mother prior to discharge. likely discharge soon as pt is not interested in the rapeutic med changes and is not engaged in Tx on the unit. 04/08: less agitated than yesterday, thoughts fairly linear. planning for discharge . I spent __35____ minutes with the patient and/or on the patient floor today, greater than?50% of which was spent counseling/coordinating care. Reason for contiued inpatient stay Substantial Risk for: inability to function and rapid decompensation
[2022-04-08 20:20] VITALS: PULSE 77; RESP 18; TEMP 36.7; O2SAT 97
[2022-04-08 21:39] LABS: Glucose, Whole Blood 116 mg/dL (60-115)
[2022-04-09 08:44] LABS: Glucose, Whole Blood 110 mg/dL (60-115)
[2022-04-09 09:00] VITALS: BP 149/84; PULSE 88; RESP 20; TEMP 36.2; O2SAT 97
[2022-04-09] MEDS: metFORMIN HCl 500 MG TABLET PO (09:59)
[2022-04-09] MEDS: Ziprasidone 40 MG CAPSULE PO ×2 (09:59→22:30)
[2022-04-09] MEDS: Losartan Potassium 50 MG TABLET PO (09:59)
[2022-04-09] MEDS: DULoxetine HCl 30 MG CAPSULE.DR PO (09:59)
[2022-04-09] MEDS: Fenofibrate 160 MG TABLET PO (09:59)
--- NOTE | 2022-04-09 12:53 | P.PNPSI_ITS ---
Subjective Subjective Date of Service: 04/09/22 Reason For Visit: Disorganization Interim History: calm, cooperative. no mention of tapering off of medications. not pressured. reports he is bored here and looking forward to discharge. no complaints or requests for MD. per staff, c/o increased anxiety and depression. talkative but somewhat disorganized in the afternoon. c/o racing thoughts and nervousness he cannot control. Mental Status Exam Mental Status Exam Narrative: A&O. Causal attire, overweight, dyed hair, adequate hygiene. Good eye contact, attentive. No Tics or Tremors. No abnormal involuntary movements. calm, cooperative. speech nml rate and amount and latency. nml prosody and loudness. affect is constricted, normo-intense, non-labile. no SI/HI/AVH expressed. Thoughts are flexible and linear. No known cognitive or memory impairment. Insight/ Judgment limited/ poor. Diagnostics Vital Signs (24Hr): Vital Signs - 24 hr 04/08/22 20:20 04/09/22 09:00 Temperature 98.1 F 97.2 F Pulse Rate 77 88 Respiratory Rate 18 20 Blood Pressure 149/84 H Pulse Oximetry 97 97 Oxygen Delivery Method Room Air Room Air BMI result Body Mass Index 30.7 Labs Results: 04/02/22 17:34 04/04/22 08:19 Labs: Laboratory Results - last 48 hr 04/08/22 04/08/22 04/09/22 08:22 21:35 08:39 POC Glucose 97 116 H 110 Medications Medications Current Medications Acetaminophen (Acetaminophen 325 Mg Tablet) 650 mg PO Q6H PRN PRN Reason: Headache/Pain Mild Scale (1-3) Al Hydroxide/Mg Hydroxide (Magnesium Hydrox/Alum Hydrox 30 Ml Oral.Susp) 30 ml PO Q6H PRN PRN Reason: Heartburn/Nausea Duloxetine HCl (Duloxetine Hcl 30 Mg Capsule.Dr) 30 mg PO DAILY [facility] Last Admin: 04/09/22 09:59 Dose: 30 mg Fenofibrate (Fenofibrate 160 Mg Tablet) 160 mg PO DAILY [facility] Last Admin: 04/09/22 09:59 Dose: 160 mg Hydroxyzine HCl (Hydroxyzine Hcl 25 Mg Tablet) 25 mg PO Q6H PRN PRN Reason: Anxiety Losartan Potassium (Losartan Potassium 50 Mg Tablet) 50 mg PO DAILY [facility]; Protocol Last Admin: 04/09/22 09:59 Dose: 50 mg Magnesium Hydroxide (Milk Of Magnesia 30 Ml Oral.Susp) 30 ml PO DAILY PRN PRN Reason: Constipation Melatonin (Melatonin 3 Mg Tablet) 6 mg PO BEDTIME [facility] Metformin HCl (Metformin Hcl 500 Mg Tablet) 500 mg PO DAILY [facility] Last Admin: 04/09/22 09:59 Dose: 500 mg Nicotine (Nicotine 21 Mg Patch.Td24) 21 mg TRANSDERMA DAILY [facility] Last Admin: 04/09/22 09:59 Dose: Not Given Nicotine Polacrilex (Nicotine Polacrilex 2 Mg Gum) 4 mg BUCCAL Q2H PRN PRN Reason: Nicotine Cravings Pt Own (Ashwagandha (600 Mg)) 600 mg PO BIDAC [facility] Last Admin: 04/09/22 09:59 Dose: 600 mg Trazodone HCl (Trazodone Hcl 50 Mg Tablet) 50 mg PO BEDTIME PRN PRN Reason: Insomnia Ziprasidone (Ziprasidone 40 Mg Capsule) 40 mg PO BID [facility] Last Admin: 04/09/22 09:59 Dose: 40 mg Allergies Allergies Allergy/AdvReac Type Severity Reaction Status Date / Time No Known Allergies Allergy Unverified 04/12/20 19:45 [No Known Allergies*] Assessment & Plan Assessment & Plan (1) Schizoaffective disorder, depressive type: Status: Acute Code(s): F25.1 - Schizoaffective disorder, depressive type Plan Rupesh is a 46 y.o. Who carries a dx of schizoaffective disorder. He was seen by [facility] in the [facility] on 04/02/22 from his [facility]/ respite after reporting feeling worsening sx and not accepting any med changes. He was initia lly seen by crisis 03/27/22 due to SI without plan/intent, poor sleep, depression, anxiety, racing thoughts, and ?rumination.? Pt says he no longer wants to take psychiatric medications. Utox positive for cannabis. Denies alcohol abuse. Hx of multiple inpatient admissions and homelessness. Remote hx of polysubstance abuse. Plan: Pt says he wants to be slowly weaned off his geodon and cymbalta, un derstands that this may precipitate withdrawal and says he knows it is a process. Will discontinue ambien 5 mg PRN, as pt wants to get off this, will add melatonin. He is currently med adherent. Will work on assessment, engagement, rapport building. Q15 min safety checks, CV Monitor response to medications. Monitor for safety in the milieu. Discharge on stabilization. Patient seen. Chart reviewed. Discussed with team. Obtain collateral contact info?as needed 04/04- lower cymbalta as may worsen psychosis anyway. continue all other meds. 04/05/2022. Might benefit from long-acting injectable consider metformin Continue plan of care patient isolated withdrawn unable to give clear history went trying get collateral information 04/06/2022 Continue plan of care again trying clarify events leading to hospitalization patient's baseline consider long-acting injectable 04/07: poor historian, no med changes despite pt's ordering MD to taper meds. pt was referred to his outpt prescriber for that. may have family mtg with mother prior to discharge. likely discharge soon as pt is not interested in therapeutic med changes and is not engaged in Tx on the unit. 04/08: less agitated than yesterday, thoughts fairly linear. planning for discharge . 04/09: continues more calm today, linear. plannig for discharge tomorrow. continue current mgmt. I spent ___ 20___ minutes with the patient and/or on the patient floor today, greater than?50% of which was spent counseling/coordinating care. Reason for contiued inpatient stay Substantial Risk for: inability to function and rapid decompensation
[2022-04-09 20:25] VITALS: BP 147/76; PULSE 87; RESP 16; TEMP 36.7; O2SAT 97
[2022-04-09 21:00] LABS: Glucose, Whole Blood 112 mg/dL (60-115)
[2022-04-09] MEDS: Melatonin 3 MG TABLET 6 MG PO (22:30)
[2022-04-10 06:00] VITALS: BP 127/79; PULSE 79; RESP 20; TEMP 36.6; O2SAT 100
[2022-04-10 07:00] VITALS: BMI 33.4
[2022-04-10 08:36] LABS: Glucose, Whole Blood 108 mg/dL (60-115)
[2022-04-10] MEDS: Fenofibrate 160 MG TABLET PO (08:43)
[2022-04-10] MEDS: DULoxetine HCl 30 MG CAPSULE.DR PO (08:43)
[2022-04-10] MEDS: metFORMIN HCl 500 MG TABLET PO (08:43)
[2022-04-10] MEDS: Ziprasidone 40 MG CAPSULE PO (08:43)
[2022-04-10] MEDS: Losartan Potassium 50 MG TABLET PO (08:43)
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
== END 2022-04-10 11:55 | disposition home or self-care (01) | DRG 885 ==
LOC: HO.ED 04-03 06:29 → HO.PADLT16 04-03 16:37
PROVIDERS: Physician Assistant; Admitting Provider Psychiatry & Neurology Psychiatry; Emergency Provider Emergency Medicine Emergency Medical Services; PCP Internal Medicine; Visit Provider Psychiatry & Neurology Psychiatry
DX: F25.1 Schizoaffective disorder, depressive type (principal); Z20.822 Contact with and (suspected) exposure to COVID-19; Z87.891 Personal history of nicotine dependence; Z79.84 Long term (current) use of oral hypoglycemic drugs; Z79.899 Other long term (current) drug therapy
CPT/HCPCS: 36415; 80053; 80061; 80076; 80307; 81003; 82077; 82607; 82746; 82947; 83036; 83735; 84439; 84443; 85025; 87635; 93005; 99285

== ENCOUNTER 2022-09-18 15:46 | Inpatient (IN) | payer OTHER, SELFPAY ==
--- NOTE | 2022-09-18 | ECG_ITS ---
Test Reason : MED CLEARANCE Blood Pressure : / mmHG Vent. Rate : 079 BPM Atrial Rate : 079 BPM P-R Int : 136 ms QRS Dur : 094 ms QT Int : 390 ms P-R-T Axes : 051 000 009 degrees QTc Int : 447 ms Normal sinus rhythm Normal ECG When compared with ECG of 03-APR-2022 14:13, Premature supraventricular complexes are no longer Present Nonspecific T wave abnormality no longer evident in Lateral leads Referred By: Kole Tavera Electronically Signed By:HANDY AVILA
[2022-09-18 16:52] VITALS: BP 187/91; PULSE 56; RESP 18; TEMP 36.6; O2SAT 97; BMI 36.1
--- NOTE | 2022-09-18 17:22 | ED_ITS ---
HPI - Psych General Chief Complaint: Psychiatric Symptoms Stated Complaint: crisis eval Time Seen by Provider: 09/18/22 16:15 Source: patient Mode of arrival: ambulatory Limitations: no limitations History of Present Illness HPI Narrative: 46-year-old male with a history of schizoaffective disorder, depression, anxiety presenting to the ED per request of his in a after having a manic episode. He tells me he is seeking mental health help. Patient is calm, coherent and literate, but questionable historian. Patient states that he does not remember the episode, but his mom told him about it. Patient tells me that she barely sleeps and has not had shower since the beginning of the year. Patient denies illicit drug use. Patient admits to daily marijuana use and smokes a pack of cigarettes per day. Patient is an occasional drinker. Patient denies SI and HI. Patient states he has voices in his head telling him to leave up to his potential in life. Patient states he also states things are there but can not describe what they are. Patient states that he lives with his mom and his sister and is upset that he does not have a job, lives at home and not doing more with his life. Denies medical complaints Related Data Home Medications Medication Instructions Recorded Confirmed ziprasidone HCl 20 mg capsule 1 cap PO BID 09/18/22 09/18/22 Previous Rx's Medication Instructions Recorded duloxetine 30 mg capsule,delayed 30 mg PO DAILY 30 days #30 caps 04/10/22 release metformin 500 mg tablet 1 tab PO DAILY 30 days #30 tabs 04/11/22 Allergies Allergy/AdvReac Type Severity Reaction Status Date / Time No Known Allergies Allergy Verified 09/18/22 23:01 [No Known Allergies*] Review of Systems Review of Systems: Constitutional : No Fever, No Chills ENT/Mouth : No Ear Pain, No Nasal Congestion, No sore throat Eyes: No Eye Pain, No Swelling, No Redness Cardiovascular : No Chest Pain, No SOB Respiratory : No Cough, No Sputum, No Dyspnea Gastrointestinal : No Nausea, No Vomiting, No Diarrhea, No Hematochezia, No Melena Genitourinary : No Dysuria, No Urinary Frequency, No Hematuria Musculoskeletal : No Myalgias Skin : No Skin Lesions, No rash Neuro : No Weakness, No Numbness, No Paresthesias, No Dizziness, No Headache Psych : positive Anxiety, positive Depression, negative SI/HI All other systems reviewed and are negative Yes all other systems are reviewed and are negative [facility] Past Medical History Attestation statement: The following information was validated with the patient. Source: old records reviewed and nursing notes reviewed Social History Social History Household Members: Family Household Members Other:: Mother Housing: House Do you presently have visiting nurse or other home services: No Alcohol intake: current Alcohol intake frequency: 0-2 drinks per day Alcohol type: beer and wine Patient Tobacco Use Status: Former Tobacco user Quit Date: 03/27/22 Tobacco use type: Cigarette Cigarette Packs Per Day: 1 Cigarettes Per Day: 20.0 Years Smoked: 28 Smoked in Last 30 Days: Yes e-Cigarette/Vaping Use: Former Use Second Hand Smoke Exposure: No Use of substances other than those prescribed or required for medical reasons: Yes Substance Use Type: Marijuana Substance Use Frequency: Chronic Longstanding Substance Use Frequency Other:: Daily Last Used Substance: Just Prior to Admission Any prior treatment program specific to substance use: No Advance Directives: No Advance Directives Information Provided: Yes service: No Sexual orientation: Don't Know Physical Exam Vital Signs: Vital Signs: Last Vital Signs Temp 97.8 F 09/18/22 16:52 Pulse 56 09/18/22 16:52 Resp 18 09/18/22 16:52 BP 187/91 H 09/18/22 16:52 Pulse Ox 97 09/18/22 16:52 O2 Del Method 09/18/22 16:52 BMI result Body Mass Index 36.1 vss Appearance: Alert.? Oriented X3.? No acute distress.? Head: Normocephalic, atraumatic, no step-offs or deformities Eyes: Pupils equal, round and reactive to light.? Neck: Normal inspection.? Neck supple.? CVS: Normal heart rate and rhythm.? Pulses normal.? Respiratory: No respiratory distress.? Breath sounds normal.? Abdomen: Soft and nontender.? Skin: Skin warm and dry.? Normal skin color.? Normal skin turgor.? Extremities: No lower extremity edema.? No calf ttp. 5/5 strength to bilateral upper and lower extremities Neuro: Oriented X 3.? No motor deficit.? No sensory deficit. CN 2-12 intact Course Reevaluation(s) Reevaluation #1: CBC with slight leukocytosis likely secondary to reactivity/agitation and or manic episode, chemistry with no acute electrolyte abnormalities requiring intervention. UA clean without infection. Urine toxicology positive for marijuana. Ethanol negative. COVID negative. Patient will be admitted to the inpatient psychiatric unit at this hospital. Patient agreeable to plan. Time: 23:40 Medications Administered Discontinued Medications Generic Name Dose Route Start Last Admin Trade Name Freq PRN Reason Stop Dose Admin Nicotine Polacrilex 2 mg 09/18/22 17:05 09/18/22 17:28 Nicotine Polacrilex 2 Mg Gum BUCCAL 09/18/22 17:06 2 mg ONCE ONE Administration Medical Decision Making Medical Decision Making [facility] Narrative: 46-year-old male presenting status post manic episode. Physical exam benign Likely manic episode versus psychosis versus panic attack. Less likely metabolic disturbances, electrolyte imbalances Plan: Labs, Behavioral Health Differential Diagnosis Differential Diagnoses: The differential diagnosis associated with the presentation includes Likely manic episode versus psychosis versus panic attack. Less likely metabolic disturbances, electrolyte imbalances Admission/Observation Consideration of admission/observation: Escalation of care including admission/observation considered Not likely to be admitted Consult Healthcare Provider Management of the patient was discussed with: Behavioral Health Provider (inpatient admit ) Lab Data [facility] Lab Attestation statement: I reviewed the patient's lab results. 09/18/22 17:47 09/18/22 17:47 Labs: Lab Results 09/18/22 09/18/22 09/18/22 Range/Units 17:19 17:25 17:25 WBC (4.8-10.8) X10*3/uL RBC (4.60-5.80) X10*6/uL Hgb (14.0-18.0) g/dl Hct (42.0-52.0) % MCV (80.0-98.0) fL MCH (27.0-33.0) pg MCHC (31.0-36.0) g/dl RDW (11.0-16.0) % Plt Count (160-400) X10*3/uL MPV (9.4-12.4) fL Immature Gran % (Auto) (0.0-0.4) % Neut % (Auto) (45-73) % Lymph % (Auto) (20-40) % [place] % (Auto) (2-11) % Eos % (Auto) (0-4) % Baso % (Auto) (0-2) % Lymph # (Auto) (1.2-4.9) X10*3/uL [place] # (Auto) (0.1-1.2) X10*3/uL Eos # (Auto) (0.0-0.4) X10*3/uL Baso # (Auto) (0.0-0.2) X10*3/uL Abs Immat Gran (auto) (0.00-0.03) X10*3/uL Absolute Neuts (auto) (2.0-8.3) x10*3/uL Absolute Nucleated RBC (0.0-0.012) X10*3/uL Nucleated RBC % (auto) (0.0-0.2) /100WBC Sodium (135-145) mmol/L Potassium (3.3-5.1) mmol/L Chloride (96-108) mmol/L Carbon Dioxide (22-29) mmol/L Anion Gap (12-20) BUN (9-16) mg/dL Creatinine (0.5-1.4) mg/dL Estim Creat Clear Calc Estimated GFR Random Glucose (60-115) mg/dL Calcium (8.4-10.2) mg/dL Magnesium (1.6-2.6) mg/dL Total Bilirubin (0.0-1.0) mg/dL AST (5-37) U/L ALT (0-40) U/L Alkaline Phosphatase (39-117) U/L Total Protein (6.5-8.0) g/dL Albumin (3.5-5.0) g/dL Urine Color Yellow Urine Appearance Clear Urine pH 6.0 (5.0-9.0) Ur Specific [place] 1.015 (1.005-1.025) Urine Protein Negative (Neg-Trace) mg/dL Urine Glucose (UA) Negative (Negative) mg/dL Urine Ketones Negative (Negative) mg/dL Urine Blood Negative (Negative) Urine Nitrite Negative (Negative) Ur Leukocyte Esterase Negative (Negative) Urine Opiates Screen Not Detected (Not Detect) Urine Fentanyl Screen Not Detected (Not Detect) Ur Barbiturates Screen Not Detected (Not Detect) Ur Phencyclidine Scrn Not Detected (Not Detect) Ur Amphetamines Screen Not Detected (Not Detect) U Benzodiazepines Scrn Not Detected (Not Detect) Urine Cocaine Screen Not Detected (Not Detect) U Marijuana (THC) Screen POSITIVE H (Not Detect) Ethyl Alcohol mg/dL COVID-19 (ZAIDA) Negative (Negative) COVID-19 Clin Com See Note 09/18/22 09/18/22 Range/Units 17:47 17:47 WBC 11.0 H (4.8-10.8) X10*3/uL RBC 5.26 (4.60-5.80) X10*6/uL Hgb 16.2 (14.0-18.0) g/dl Hct 47.8 (42.0-52.0) % MCV 90.9 (80.0-98.0) fL MCH 30.8 (27.0-33.0) pg MCHC 33.9 (31.0-36.0) g/dl RDW 12.4 (11.0-16.0) % Plt Count 271 (160-400) X10*3/uL MPV 10.2 (9.4-12.4) fL Immature Gran % (Auto) 0.4 (0.0-0.4) % Neut % (Auto) 61.4 (45-73) % Lymph % (Auto) 24.9 (20-40) % [place] % (Auto) 7.5 (2-11) % Eos % (Auto) 5.1 H (0-4) % Baso % (Auto) 0.7 (0-2) % Lymph # (Auto) 2.7 (1.2-4.9) X10*3/uL [place] # (Auto) 0.8 (0.1-1.2) X10*3/uL Eos # (Auto) 0.6 H (0.0-0.4) X10*3/uL Baso # (Auto) 0.1 (0.0-0.2) X10*3/uL Abs Immat Gran (auto) 0.04 H (0.00-0.03) X10*3/uL Absolute Neuts (auto) 6.7 (2.0-8.3) x10*3/uL Absolute Nucleated RBC 0.000 (0.0-0.012) X10*3/uL Nucleated RBC % (auto) 0.0 (0.0-0.2) /100WBC Sodium 142 (135-145) mmol/L Potassium 4.1 (3.3-5.1) mmol/L Chloride 104 (96-108) mmol/L Carbon Dioxide 27 (22-29) mmol/L Anion Gap 15 (12-20) BUN 9 (9-16) mg/dL Creatinine 1.02 (0.5-1.4) mg/dL Estim Creat Clear Calc 119.2 Estimated GFR > 60 Random Glucose 139 H (60-115) mg/dL Calcium 9.5 (8.4-10.2) mg/dL Magnesium 2.1 (1.6-2.6) mg/dL Total Bilirubin 0.6 (0.0-1.0) mg/dL AST 25 (5-37) U/L ALT 27 (0-40) U/L Alkaline Phosphatase 61 (39-117) U/L Total Protein 7.3 (6.5-8.0) g/dL Albumin 4.5 (3.5-5.0) g/dL Urine Color Urine Appearance Urine pH (5.0-9.0) Ur Specific [place] (1.005-1.025) Urine Protein (Neg-Trace) mg/dL Urine Glucose (UA) (Negative) mg/dL Urine Ketones (Negative) mg/dL Urine Blood (Negative) Urine Nitrite (Negative) Ur Leukocyte Esterase (Negative) Urine Opiates Screen (Not Detect) Urine Fentanyl Screen (Not Detect) Ur Barbiturates Screen (Not Detect) Ur Phencyclidine Scrn (Not Detect) Ur Amphetamines Screen (Not Detect) U Benzodiazepines Scrn (Not Detect) Urine Cocaine Screen (Not Detect) U Marijuana (THC) Screen (Not Detect) Ethyl Alcohol < 10 mg/dL COVID-19 (ZAIDA) (Negative) COVID-19 Clin Com External Record Review External record reviewed: Inpatient record, Office record, Outpatient record, Prior outpatient labs, Prior outpatient radiology, Primary care record and Outside ED record Core Measures AMI core measures followed: Yes Measure exclusions: not indicated Critical Care Time Critical Care Time Critical Care Time: No Discharge Plan Discharge Clinical Impression: Schizoaffective disorder, depressive type, Acute psychosis, Depression, Acute anxiety Patient Disposition: Admitted As Inpatient Interventions: [place]-Suicide Risk Severity Scale Last Done: 09/18/22 17:40 Admission Worksheet (ED) Last Done: 09/18/22 23:14 Discharge Date/Time: 09/18/22 23:15
[2022-09-18] MEDS: Nicotine Polacrilex 2 MG GUM BUCCAL (17:28)
[2022-09-18 17:45] LABS: COVID-19 Test Negative (Negative); IDNOW Serial# BCCEAD1C
[2022-09-18 17:45] LABS: Appearance Urine Clear; Color Urine Yellow; Glucose Urine UA Negative (Negative); Leukocyte Esterase Urine Negative (Negative); Nitrite Urine Negative (Negative); Specific Gravity - Urine 1.015 (1.005-1.025); Urine Blood Negative (Negative); Urine Ketones Negative (Negative); Urine Protein Negative (Neg-Trace)
[2022-09-18 17:50] LABS: Amphetamine Screen Urine Not Detected (Not Detect); Barbiturates, Urine Not Detected (Not Detect); Benzodiazepines Screen Urine Not Detected (Not Detect); Cannabinoid Screen Urine POSITIVE (Not Detect); Cocaine Screen Urine Not Detected (Not Detect); Fentanyl, urine Not Detected (Not Detect); Opiate Screen Urine Not Detected (Not Detect); Phencyclidine Screen Urine Not Detected (Not Detect)
[2022-09-18 17:54] LABS: Basophils Absolute Auto 0.1 X10*3/uL (0.0-0.2); Basophils Percent Auto 0.7 % (0-2); Eosinophils Absolute Auto 0.6 X10*3/uL (0.0-0.4); Eosinophils Percent Auto 5.1 % (0-4); Hematocrit 47.8 % (42.0-52.0); Hemoglobin 16.2 g/dl (14.0-18.0); Imm Gran Abs Auto 0.04 X10*3/uL (0.00-0.03); Imm Gran Pct Auto 0.4 % (0.0-0.4); Lymphocytes Absolute Auto 2.7 X10*3/uL (1.2-4.9); Lymphocytes Percent Auto 24.9 % (20-40); MANUAL DIFF FLAG NO; Mean Corpuscular HGB Conc 33.9 g/dl (31.0-36.0); Mean Corpuscular Hemoglobin 30.8 pg (27.0-33.0); Mean Corpuscular Volume 90.9 fL (80.0-98.0); Mean Platelet Volume 10.2 fL (9.4-12.4); Monocytes Absolute Auto 0.8 X10*3/uL (0.1-1.2); Monocytes Percent Auto 7.5 % (2-11); Neutrophils Absolute Auto 6.7 x10*3/uL (2.0-8.3); Neutrophils Percent Auto 61.4 % (45-73); Platelet Count 271 X10*3/uL (160-400); Red Blood Count 5.26 X10*6/uL (4.60-5.80); Red Cell Distribution Width 12.4 % (11.0-16.0)
[2022-09-18 18:08] LABS: Alanine Aminotransferase 27 U/L (0-40); Albumin Level 4.5 g/dL (3.5-5.0); Alkaline Phosphatase 61 U/L (39-117); Anion Gap 15 (12-20); Aspartate Amino Transferase 25 U/L (5-37); Bilirubin Total 0.6 mg/dL (0.0-1.0); Blood Urea Nitrogen 9 mg/dL (9-16); Calcium 9.5 mg/dL (8.4-10.2); Carbon Dioxide 27 mmol/L (22-29); Chloride 104 mmol/L (96-108); Creatinine Clr Calc Pharmacy 119.2; Estimated Glomerular Filt Rate > 60; Ethanol < 10 mg/dL; Glucose Random 139 mg/dL (60-115); Magnesium 2.1 mg/dL (1.6-2.6); Potassium 4.1 mmol/L (3.3-5.1); Sodium 142 mmol/L (135-145); Total Protein 7.3 g/dL (6.5-8.0)
--- NOTE | 2022-09-18 18:13 | PHA.MEDREC ---
Pharmacy Consult ? Medication Reconciliation Pharmacy has completed the medication reconciliation. Patient had very confusing thought process and it took about 15 minutes for him to tell me he only takes 3 medications. He continued to discuss things other than medications. He would not tell me when his last dose of medication at home was. He states he takes ashwagandha extract 500 mg daily at home but REFUSES to take it here because in his words it's not a medication but a supplement and you shouldn't even as me about that! I left it off the med rec so he wouldn't be angry if anyone asks him about it.
--- NOTE | 2022-09-19 01:29 | PC.ADMIT ---
Pt is a 46 year old male with a previously documented dx of Schizophrenia. Per report pt is known to this facility and has had multiple psychiatric admissions dating back to 2000, with most recent here on [facility] in 03/2022. Per report pt was brought into ED via EMS from home d/t being manic , including symptoms such as poor sleep (2-3hrs/night), pressured speech, poor insight/judgment and impulsivity. Pt has not been and has a history of medication non-adherence. He reports impaired concentration and focusing. Per pts mother he has been more irritable, spending time pacing and appearing preoccupied at home. Pt denies SI/HI, however, has a past hx of suicide attempts. Pt does have a trauma hx and a family hx of severe mental illness. Pt arrived to unit on a CV and was oriented to unit. He signed one page of RAJINDER and then became angry stating he wanted to go to bed, he was given space to do so. Tox screen and COVID negative. Q15min safety checks initiated.
[2022-09-19 06:00] VITALS: BP 144/95; PULSE 122; RESP 18; O2SAT 97
[2022-09-19 09:20] LABS: Alanine Aminotransferase 30 U/L (0-40); Albumin Level 4.4 g/dL (3.5-5.0); Alkaline Phosphatase 67 U/L (39-117); Anion Gap 14 (12-20); Aspartate Amino Transferase 27 U/L (5-37); Blood Urea Nitrogen 11 mg/dL (9-16); Calcium 9.6 mg/dL (8.4-10.2); Carbon Dioxide 27 mmol/L (22-29); Chloride 107 mmol/L (96-108); Cholesterol 197 mg/dL; Creatinine Clr Calc Pharmacy 121.6; Estimated Glomerular Filt Rate > 60; Glucose Fasting 129 mg/dL (60-99); HDL Cholesterol 30 mg/dL; LDL Cholesterol Calculated 132 mg/dl; Potassium 4.4 mmol/L (3.3-5.1); Sodium 144 mmol/L (135-145); Total Protein 7.3 g/dL (6.5-8.0); Triglycerides 177 mg/dL
[2022-09-19] MEDS: metFORMIN HCl 500 MG TABLET PO (10:03)
[2022-09-19] MEDS: Ziprasidone 20 MG CAPSULE PO (10:03)
[2022-09-19] MEDS: DULoxetine HCl 30 MG CAPSULE.DR PO (10:04)
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
[2022-09-19 17:48] VITALS: BP 141/95; PULSE 111
[2022-09-19] MEDS: Ziprasidone 40 MG CAPSULE PO (19:07)
[2022-09-20 08:00] VITALS: BP 185/119; PULSE 93; TEMP 36.3; O2SAT 96
[2022-09-20] MEDS: Ziprasidone 20 MG CAPSULE PO (08:18)
[2022-09-20] MEDS: metFORMIN HCl 500 MG TABLET PO (08:18)
[2022-09-20 09:25] LABS: Estimated Average Glucose 123 mg/dL; Hemoglobin A1c % 5.9 %
[2022-09-20 09:27] LABS: Cholesterol 198 mg/dL; HDL Cholesterol 32 mg/dL; LDL Cholesterol Calculated 126 mg/dl; Triglycerides 201 mg/dL
[2022-09-20 09:56] LABS: Folate 10.5 ng/mL (> or = 4.0); Thyroid Stimulating Hormone 0.96 uIU/mL (0.32-4.0); Vitamin B12 515 pg/mL (200-900)
[2022-09-20] MEDS: Nicotine 21 MG PATCH.TD24 TRANSDERMA (11:26)
--- NOTE | 2022-09-20 12:00 | HO.PSYCHPN ---
Subjective Subjective Date of Service: 09/20/22 Reason For Visit: Psychosis Interim History: Patient seen and discussed. Patient seen in his room. He was irritable and hostile as soon as this copy writer entered the room. He was paranoid and said this copy writer is intruding on his privacy and saying that this copy writer didn't knock on the door. He said he didn't want to talk. He was irritable. He has been compliant with medications. He was requesting Cymbalta from the nurse. He was educated that the treatment will focus on mood stabilization with Geodon for now. Zyprexa PRN added for agitation if needed. Review of Systems Review of Systems Constitutional : No Fever, No Chills ENT/Mouth : No Ear Pain, No Nasal Congestion, No sore throat Eyes: No Eye Pain, No Swelling, No Redness Cardiovascular : No Chest Pain, No SOB Respiratory : No Cough, No Sputum, No Dyspnea Gastrointestinal : No Nausea, No Vomiting, No Diarrhea, No Hematochezia, No Melena Genitourinary : No Dysuria, No Urinary Frequency, No Hematuria Musculoskeletal : No Myalgias Skin : No Skin Lesions, No rash Neuro : No Weakness, No Numbness, No Paresthesias, No Dizziness, No Headache Psych : positive Anxiety, positive Depression, negative SI/HI All other systems reviewed and are negative Yes all other systems are reviewed and are negative Constitutional: Reports no additional constitutional complaints Eyes: Reports no additional eye complaints Reports system reviewed and no additional complaints, except as documented Cardiovascular: Reports no additional cardiovascular complaints Respiratory: Reports no additional respiratory complaints Gastrointestinal: Reports no additional gastrointestinal complaints Genitourinary: Reports no additional male genitourinary complaints Musculoskeletal: Reports no additional musculoskeletal complaints Skin/Breast: Reports system reviewed and no additional complaints, except as docu Reports system reviewed and no additional complaints, except as documented and Reports behavioral changes Psychiatric: Reports abnormal sleep pattern, Reports behavioral changes, Reports mood swings and Reports suicidal ideation (denies) Endocrine: Reports no additional endocrine complaints Hematologic/Lymphatic: Reports no additional hematologic/lymphatic complaints Allergic/Immunologic: Reports no additional allergic/immunologic complaints Mental Status Exam Mental Status Exam Patient Appearance: Fatigued Patient Orientation: Person, Place, Time and Situation Level of Consciousness: Drowsy and Alert Patient Behavior: Appropriate, Talkative, Suspicious, Belligerent, Good Eye Contact and Uncooperative Mood Description: Suspicious, Withdrawn, Constricted and Hostile Affect Description: Suspicious and Constricted Patient Cognition Impaired: No Ability to Follow Directions: Good Speech Pattern: Spontaneous Speech Memory Description: Episodic Impaired Delusions: Paranoid Ideation Thought Process: Evasive Thought Content: positive for Perseveration Judgement: Poor Diagnostics Vital Signs (24Hr): Vital Signs - 24 hr 09/20/22 08:00 Temperature 97.4 F Pulse Rate 93 Blood Pressure 185/119 H Pulse Oximetry 96 Oxygen Delivery Method Room Air BMI result Body Mass Index 36.1 Labs 09/18/22 17:47 09/19/22 08:55 Labs: Laboratory Results - last 48 hr 09/19/22 09/20/22 09/20/22 08:55 08:50 08:50 Sodium 144 Potassium 4.4 Chloride 107 Carbon Dioxide 27 Anion Gap 14 BUN 11 Creatinine 1.00 Estim Creat Clear Calc 121.6 Estimated GFR > 60 Fasting Glucose 129 H Estimat Average Glucose 123 Hemoglobin A1c % 5.9 Calcium 9.6 Total Bilirubin 1.0 AST 27 ALT 30 Alkaline Phosphatase 67 Total Protein 7.3 Albumin 4.4 Triglycerides 177 201 Cholesterol 197 198 LDL Cholesterol, Calc 132 126 HDL Cholesterol 30 32 Vitamin B12 515 Folate 10.5 TSH 0.96 Medications Medications Current Medications Acetaminophen (Acetaminophen 325 Mg Tablet) 650 mg PO Q6H PRN PRN Reason: Headache/Pain Mild Scale (1-3) Al Hydroxide/Mg Hydroxide (Magnesium Hydrox/Alum Hydrox 30 Ml Oral.Susp) 30 ml PO Q6H PRN PRN Reason: Heartburn/Nausea Hydroxyzine HCl (Hydroxyzine Hcl 25 Mg Tablet) 25 mg PO Q6H PRN PRN Reason: Anxiety Magnesium Hydroxide (Milk Of Magnesia 30 Ml Oral.Susp) 30 ml PO DAILY PRN PRN Reason: Constipation Metformin HCl (Metformin Hcl 500 Mg Tablet) 500 mg PO DAILY [facility] Last Admin: 09/20/22 08:18 Dose: 500 mg Nicotine (Nicotine 21 Mg Patch.Td24) 21 mg TRANSDERMA DAILY [facility] Last Admin: 09/20/22 11:26 Dose: 21 mg Pharmacy Consult (Consult Rx Perform Med Rec) 1 each MISCELLANE ONCE PRN PRN Reason: Consult order Trazodone HCl (Trazodone Hcl 50 Mg Tablet) 50 mg PO BEDTIME MRX1 PRN PRN Reason: Insomnia Ziprasidone (Ziprasidone 20 Mg Capsule) 20 mg PO DAILY [facility] Last Admin: 09/20/22 08:18 Dose: 20 mg Ziprasidone (Ziprasidone 40 Mg Capsule) 40 mg PO BEDTIME [facility] Last Admin: 09/20/22 20:15 Dose: 40 mg Allergies Allergies Allergy/AdvReac Type Severity Reaction Status Date / Time No Known Allergies Allergy Verified 09/18/22 23:01 [No Known Allergies*] Assessment & Plan Assessment & Plan (1) Schizoaffective disorder, depressive type: Status: Acute Code(s): F25.1 - Schizoaffective disorder, depressive type Plan 46 yo male, hx of schizoaffective disorder, depressed, with presenting sx of psychosis and possibly jean per family with poor sleep, poor boundaries, preoccupation with internal stimuli and out of character behavior. Toxicology positive for cannabis. Plan: Hold Cymbalta Increase Geodon to 20 mg a.m. 40 mg h.s. - 09/20 Continue tx plan. Reason for contiued inpatient stay Substantial Risk for: inability to function and rapid decompensation Time Spent With Patient Time: Total time managing care of this patient today ____ minutes.
[2022-09-20 18:00] VITALS: BP 138/86; PULSE 68; RESP 16; TEMP 36.4; O2SAT 98
[2022-09-20] MEDS: Ziprasidone 40 MG CAPSULE PO (20:15)
[2022-09-21 06:00] VITALS: BP 136/70; PULSE 50; RESP 18
[2022-09-21] MEDS: Nicotine 21 MG PATCH.TD24 TRANSDERMA (08:06)
[2022-09-21] MEDS: Ziprasidone 20 MG CAPSULE PO (08:06)
[2022-09-21] MEDS: metFORMIN HCl 500 MG TABLET PO (08:06)
--- NOTE | 2022-09-21 11:30 | HO.PSYCHPN ---
Subjective Subjective Date of Service: 09/21/22 Reason For Visit: Psychosis Interim History: Patient seen and discussed. He was more appropriate and less irritable than yesterday. He acknowledges that he may have an imbalance and in need of medications. He says he was not sleeping for a few months prior to hospitalization and that he noted changes in how he was feeling started sometime in the summer. It also may have coincided with him not wanting to take medications which he was told was not a good idea. He says he was using melatonin and ashwagandha to help calm him down and help sleep. His speech continues somewhat pressured and has some racing thoughts. Review of Systems Review of Systems Constitutional : No Fever, No Chills ENT/Mouth : No Ear Pain, No Nasal Congestion, No sore throat Eyes: No Eye Pain, No Swelling, No Redness Cardiovascular : No Chest Pain, No SOB Respiratory : No Cough, No Sputum, No Dyspnea Gastrointestinal : No Nausea, No Vomiting, No Diarrhea, No Hematochezia, No Melena Genitourinary : No Dysuria, No Urinary Frequency, No Hematuria Musculoskeletal : No Myalgias Skin : No Skin Lesions, No rash Neuro : No Weakness, No Numbness, No Paresthesias, No Dizziness, No Headache Psych : positive Anxiety, positive Depression, negative SI/HI All other systems reviewed and are negative Yes all other systems are reviewed and are negative Constitutional: Reports no additional constitutional complaints Eyes: Reports no additional eye complaints Reports system reviewed and no additional complaints, except as documented Cardiovascular: Reports no additional cardiovascular complaints Respiratory: Reports no additional respiratory complaints Gastrointestinal: Reports no additional gastrointestinal complaints Genitourinary: Reports no additional male genitourinary complaints Musculoskeletal: Reports no additional musculoskeletal complaints Skin/Breast: Reports system reviewed and no additional complaints, except as docu Reports system reviewed and no additional complaints, except as documented and Reports behavioral changes Psychiatric: Reports abnormal sleep pattern, Reports behavioral changes, Reports mood swings and Reports suicidal ideation (denies) Endocrine: Reports no additional endocrine complaints Hematologic/Lymphatic: Reports no additional hematologic/lymphatic complaints Allergic/Immunologic: Reports no additional allergic/immunologic complaints Mental Status Exam Mental Status Exam Patient Appearance: Appropriate Patient Orientation: Person, Place, Time and Situation Level of Consciousness: Awake and Alert Patient Behavior: Appropriate, Talkative, Hyperactive, Suspicious, Restless and Good Eye Contact Mood Description: Suspicious, Constricted and Anxious Affect Description: Suspicious, Constricted and Anxious Patient Cognition Impaired: No Ability to Follow Directions: Good Speech Pattern: Spontaneous Speech, Excessive and Pressured Memory Description: Normal for Patient Hallucinations: None Thought Process: Racing and Distracted Thought Content: positive for Racing, positive for Circumstantial and positive for Perseveration Judgement: Fair Diagnostics Vital Signs (24Hr): Vital Signs - 24 hr 09/21/22 06:00 09/21/22 18:00 Temperature 97.9 F Pulse Rate 50 68 Respiratory Rate 18 16 Blood Pressure 136/70 138/86 Pulse Oximetry 99 Oxygen Delivery Method Room Air Room Air BMI result Body Mass Index 36.1 Labs 09/18/22 17:47 09/19/22 08:55 Labs: Laboratory Results - last 48 hr 09/20/22 09/20/22 08:50 08:50 Estimat Average Glucose 123 Hemoglobin A1c % 5.9 Triglycerides 201 Cholesterol 198 LDL Cholesterol, Calc 126 HDL Cholesterol 32 Vitamin B12 515 Folate 10.5 TSH 0.96 Medications Medications Current Medications Acetaminophen (Acetaminophen 325 Mg Tablet) 650 mg PO Q6H PRN PRN Reason: Headache/Pain Mild Scale (1-3) Al Hydroxide/Mg Hydroxide (Magnesium Hydrox/Alum Hydrox 30 Ml Oral.Susp) 30 ml PO Q6H PRN PRN Reason: Heartburn/Nausea Duloxetine held. Hydroxyzine HCl (Hydroxyzine Hcl 25 Mg Tablet) 25 mg PO Q6H PRN PRN Reason: Anxiety Magnesium Hydroxide (Milk Of Magnesia 30 Ml Oral.Susp) 30 ml PO DAILY PRN PRN Reason: Constipation Metformin HCl (Metformin Hcl 500 Mg Tablet) 500 mg PO DAILY [facility] Last Admin: 09/21/22 08:06 Dose: 500 mg Nicotine (Nicotine 21 Mg Patch.Td24) 21 mg TRANSDERMA DAILY [facility] Last Admin: 09/21/22 08:06 Dose: 21 mg Pharmacy Consult (Consult Rx Perform Med Rec) 1 each MISCELLANE ONCE PRN PRN Reason: Consult order Trazodone HCl (Trazodone Hcl 50 Mg Tablet) 50 mg PO BEDTIME MRX1 PRN PRN Reason: Insomnia Ziprasidone (Ziprasidone 20 Mg Capsule) 20 mg PO DAILY [facility] Last Admin: 09/21/22 08:06 Dose: 20 mg Ziprasidone (Ziprasidone 40 Mg Capsule) 40 mg PO BEDTIME [facility] Last Admin: 09/21/22 20:05 Dose: 40 mg Allergies Allergies Allergy/AdvReac Type Severity Reaction Status Date / Time No Known Allergies Allergy Verified 09/18/22 23:01 [No Known Allergies*] Assessment & Plan Assessment & Plan (1) Schizoaffective disorder, depressive type: Status: Acute Code(s): F25.1 - Schizoaffective disorder, depressive type Plan 46 yo male, hx of schizoaffective disorder, depressed, with presenting sx of psychosis and possibly jean per family with poor sleep, poor boundaries, preoccupation with internal stimuli and out of character behavior. Toxicology positive for cannabis. Plan: Hold Cymbalta Increase Geodon to 20 mg a.m. 40 mg h.s. - 09/20 Continue tx plan. 09/21: Added melatonin for insomnia. Reason for contiued inpatient stay Substantial Risk for: inability to function and rapid decompensation Time Spent With Patient Time: Total time managing care of this patient today ____ minutes.
[2022-09-21 18:00] VITALS: BP 138/86; PULSE 68; RESP 16; TEMP 36.6; O2SAT 99
[2022-09-21] MEDS: Ziprasidone 40 MG CAPSULE PO (20:05)
[2022-09-21] MEDS: Melatonin 3 MG TABLET 6 MG PO (21:35)
[2022-09-22] MEDS: hydrOXYzine HCL 25 MG TABLET PO (02:21)
[2022-09-22] MEDS: Acetaminophen 325 MG TABLET 650 MG PO (02:21)
[2022-09-22 08:00] VITALS: BP 149/90; PULSE 73; RESP 18; TEMP 36.6; O2SAT 97
[2022-09-22] MEDS: Ziprasidone 20 MG CAPSULE PO (08:40)
[2022-09-22] MEDS: metFORMIN HCl 500 MG TABLET PO (08:40)
[2022-09-22] MEDS: Nicotine 21 MG PATCH.TD24 TRANSDERMA (08:41)
--- NOTE | 2022-09-22 13:03 | HO.PSYCHPN ---
Subjective Subjective Date of Service: 09/22/22 Reason For Visit: Psychosis Subjective Notes: Conditional Voluntary Interim History: Reports racing thoughts, difficulty sleeping prior to admission. States he is in withdrawal from nicotine, caffeine, cannabis. Discussed mood stabilizers. Accepted literature on bipolar disorder, lithium Not interested in taking medications, prefers cannabis, CBD Medication Compliance: Yes Side effects from medications: No Attending Groups: Intermittent Review of Systems Acute medical concerns: No Medical Review of Systems: unchanged Mental Status Exam Mental Status Exam Patient Appearance: Appropriate Patient Orientation: Person, Place, Time and Situation Level of Consciousness: Awake and Alert Patient Behavior: Appropriate, Talkative, Hyperactive, Suspicious, Restless and Good Eye Contact Mood Description: Suspicious, Constricted and Anxious Affect Description: Suspicious, Constricted and Anxious Patient Cognition Impaired: No Ability to Follow Directions: Good Speech Pattern: Spontaneous Speech, Excessive and Pressured Memory Description: Normal for Patient Hallucinations: None Thought Process: Racing and Distracted Thought Content: positive for Racing, positive for Circumstantial and positive for Perseveration Judgement: Fair Diagnostics Vital Signs (24Hr): Vital Signs - 24 hr 09/21/22 18:00 09/22/22 08:00 Temperature 97.9 F 97.9 F Pulse Rate 68 73 Respiratory Rate 16 18 Blood Pressure 138/86 149/90 H Pulse Oximetry 99 97 Oxygen Delivery Method Room Air Room Air BMI result Body Mass Index 36.1 Labs 09/18/22 17:47 09/19/22 08:55 Medications Medications Current Medications Acetaminophen (Acetaminophen 325 Mg Tablet) 650 mg PO Q6H PRN PRN Reason: Headache/Pain Mild Scale (1-3) Last Admin: 09/22/22 02:21 Dose: 650 mg Al Hydroxide/Mg Hydroxide (Magnesium Hydrox/Alum Hydrox 30 Ml Oral.Susp) 30 ml PO Q6H PRN PRN Reason: Heartburn/Nausea Duloxetine HCl (Duloxetine Hcl 30 Mg Capsule.Dr) 30 mg PO DAILY [facility] Last Admin: 09/19/22 10:04 Dose: 30 mg Hydroxyzine HCl (Hydroxyzine Hcl 25 Mg Tablet) 25 mg PO Q6H PRN PRN Reason: Anxiety Last Admin: 09/22/22 02:21 Dose: 25 mg Magnesium Hydroxide (Milk Of Magnesia 30 Ml Oral.Susp) 30 ml PO DAILY PRN PRN Reason: Constipation Melatonin (Melatonin 3 Mg Tablet) 6 mg PO BEDTIME [facility] Last Admin: 09/21/22 21:35 Dose: 6 mg Metformin HCl (Metformin Hcl 500 Mg Tablet) 500 mg PO DAILY [facility] Last Admin: 09/22/22 08:40 Dose: 500 mg Nicotine (Nicotine 21 Mg Patch.Td24) 21 mg TRANSDERMA DAILY [facility] Last Admin: 09/22/22 08:41 Dose: 21 mg Nicotine Polacrilex (Nicotine Polacrilex 2 Mg Gum) 4 mg BUCCAL Q2H PRN PRN Reason: Nicotine Cravings Pharmacy Consult (Consult Rx Perform Med Rec) 1 each MISCELLANE ONCE PRN PRN Reason: Consult order Trazodone HCl (Trazodone Hcl 50 Mg Tablet) 50 mg PO BEDTIME MRX1 PRN PRN Reason: Insomnia Ziprasidone (Ziprasidone 20 Mg Capsule) 20 mg PO DAILY [facility] Last Admin: 09/22/22 08:40 Dose: 20 mg Ziprasidone (Ziprasidone 40 Mg Capsule) 40 mg PO BEDTIME [facility] Last Admin: 09/21/22 20:05 Dose: 40 mg Allergies Allergies Allergy/AdvReac Type Severity Reaction Status Date / Time No Known Allergies Allergy Verified 09/18/22 23:01 [No Known Allergies*] Assessment & Plan Assessment & Plan (1) Schizoaffective disorder, depressive type: Status: Acute Code(s): F25.1 - Schizoaffective disorder, depressive type Plan 46 yo male, hx of schizoaffective disorder, depressed, with presenting sx of psychosis and possibly jean per family with poor sleep, poor boundaries, preoccupation with internal stimuli and out of character behavior. Toxicology positive for cannabis. Plan: Hold Cymbalta Increase Geodon to 20 mg a.m. 40 mg h.s. - 09/20 Continue tx plan. 09/21: Added melatonin for insomnia. 09/22/27: No interest in medication changes per pt. Patient educated on: medication risk/benefits and therapeutic strategies Informed Consent: further education needed Reason for contiued inpatient stay Substantial Risk for: rapid decompensation Time Spent With Patient Time: Total time managing care of this patient today ____ minutes.
[2022-09-22 18:00] VITALS: BP 146/88; PULSE 84; TEMP 36.4; O2SAT 95
[2022-09-22] MEDS: Nicotine Polacrilex 2 MG GUM 4 MG BUCCAL (21:39)
[2022-09-22] MEDS: Melatonin 3 MG TABLET 6 MG PO (22:04)
[2022-09-22] MEDS: Ziprasidone 40 MG CAPSULE PO (22:04)
[2022-09-23] MEDS: Ziprasidone 20 MG CAPSULE PO (09:57)
[2022-09-23] MEDS: metFORMIN HCl 500 MG TABLET PO (09:57)
[2022-09-23] MEDS: Nicotine 21 MG PATCH.TD24 TRANSDERMA (09:57)
[2022-09-23 10:04] VITALS: BP 142/95; PULSE 59; RESP 20; TEMP 36.8; O2SAT 96
[2022-09-23 15:45] VITALS: BP 161/91; PULSE 114; TEMP 36.4; O2SAT 98
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
[2022-09-23] MEDS: Ziprasidone 40 MG CAPSULE PO (20:40)
[2022-09-23] MEDS: Melatonin 3 MG TABLET 6 MG PO (20:43)
[2022-09-23] MEDS: Nicotine Polacrilex 2 MG GUM 4 MG BUCCAL (20:56)
[2022-09-24] MEDS: metFORMIN HCl 500 MG TABLET PO (08:31)
[2022-09-24] MEDS: Ziprasidone 20 MG CAPSULE PO (08:31)
[2022-09-24] MEDS: Nicotine 21 MG PATCH.TD24 TRANSDERMA (08:31)
[2022-09-24 09:03] VITALS: BP 140/78; PULSE 56; RESP 18; TEMP 36.5; O2SAT 98
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
[2022-09-24 18:00] VITALS: BP 109/78; PULSE 84; RESP 16; TEMP 37; O2SAT 98
[2022-09-24] MEDS: Melatonin 3 MG TABLET 6 MG PO (19:45)
[2022-09-24] MEDS: Ziprasidone 60 MG CAPSULE PO (19:46)
[2022-09-25] MEDS: Ziprasidone 20 MG CAPSULE PO (08:49)
[2022-09-25] MEDS: metFORMIN HCl 500 MG TABLET PO (08:49)
[2022-09-25 08:50] VITALS: BP 157/93; PULSE 83; RESP 18; TEMP 36.6; O2SAT 97
[2022-09-25] MEDS: Nicotine 21 MG PATCH.TD24 TRANSDERMA (08:50)
[2022-09-25 09:00] VITALS: BMI 36.3
[2022-09-25 09:28] LABS: Creatinine Clr Calc Pharmacy 138.6; Estimated Glomerular Filt Rate > 60
--- NOTE | 2022-09-25 11:21 | PC.NURSE ---
Patient declines the influenza vaccine.
--- NOTE | 2022-09-25 12:02 | MHC.RECOVRN ---
This report writer met w/ patient, after patient request to speak with Recovery Team. Patient reports interest in AA/NA meetings for recovery supports. Patient states not using any substances currently, wanted access to list of meetings. T/W reviewed recovery resources with patient, list of NA/AA meetings, list of [facility] meetings, [facility] [place] information. Patient verbalized understanding, resources left at bedside.
[2022-09-25 16:09] VITALS: BP 159/96; PULSE 54; RESP 22; TEMP 36.5; O2SAT 96
--- NOTE | 2022-09-25 16:51 | P.PNPSI_ITS ---
Subjective Subjective Date of Service: 09/25/22 Reason For Visit: Psychosis Subjective Notes: Conditional Voluntary Healthcare Proxy: No Guardianship: No Medical Problems Affecting Mental Status: No Interim History: Review of treatment options chosen in family meeting. Pt reports he is pleased with his choices for addiction treatment, continuing medications and working in therapy with a Jehovah'S Witness based group and with [facility]. Attempting to structure his time and improve my self care. Medication Compliance: Yes Side effects from medications: No Attending Groups: Intermittent Review of Systems Acute medical concerns: No Medical Review of Systems: unchanged Mental Status Exam Mental Status Exam Patient Appearance: Fatigued Patient Orientation: Person, Place, Time and Situation Level of Consciousness: Alert Patient Behavior: Talkative and Good Eye Contact Mood Description: Depressed Affect Description: Flat Patient Cognition Impaired: No Ability to Follow Directions: Good Speech Pattern: Spontaneous Speech Memory Description: Intact Hallucinations: None Delusions: Paranoid Ideation Perceptual Disturbances: Depersonalization Thought Process: Rumination and Goal Oriented Thought Content: positive for Circumstantial and positive for Goal Oriented Depressive Symptoms: Increased Anxiety, Insomnia, Difficulty Sleeping, Hopelessness, Isolating-Friends/Family, Unhappiness, Increased Fatigue, Low Self Esteem, Loss of Energy and Difficulty Concentrating Judgement: Fair Diagnostics Vital Signs (24Hr): Vital Signs - 24 hr 09/24/22 18:00 09/25/22 08:50 09/25/22 16:09 Temperature 98.6 F 97.8 F 97.7 F Pulse Rate 84 83 54 Respiratory Rate 16 18 22 H Blood Pressure 109/78 157/93 H 159/96 H Pulse Oximetry 98 97 96 Oxygen Delivery Method Room Air Room Air Room Air BMI result Body Mass Index 36.3 Labs 09/18/22 17:47 09/25/22 08:49 Labs: Laboratory Results - last 48 hr 09/25/22 08:49 Creatinine 0.88 Estim Creat Clear Calc 138.6 Estimated GFR > 60 Medications Medications Current Medications Acetaminophen (Acetaminophen 325 Mg Tablet) 650 mg PO Q6H PRN PRN Reason: Headache/Pain Mild Scale (1-3) Last Admin: 09/22/22 02:21 Dose: 650 mg Al Hydroxide/Mg Hydroxide (Magnesium Hydrox/Alum Hydrox 30 Ml Oral.Susp) 30 ml PO Q6H PRN PRN Reason: Heartburn/Nausea Duloxetine HCl (Duloxetine Hcl 30 Mg Capsule.Dr) 30 mg PO DAILY [facility] Last Admin: 09/19/22 10:04 Dose: 30 mg Hydroxyzine HCl (Hydroxyzine Hcl 25 Mg Tablet) 25 mg PO Q6H PRN PRN Reason: Anxiety Last Admin: 09/22/22 02:21 Dose: 25 mg Magnesium Hydroxide (Milk Of Magnesia 30 Ml Oral.Susp) 30 ml PO DAILY PRN PRN Reason: Constipation Melatonin (Melatonin 3 Mg Tablet) 6 mg PO BEDTIME [facility] Last Admin: 09/24/22 19:45 Dose: 6 mg Metformin HCl (Metformin Hcl 500 Mg Tablet) 500 mg PO DAILY [facility] Last Admin: 09/25/22 08:49 Dose: 500 mg Nicotine (Nicotine 21 Mg Patch.Td24) 21 mg TRANSDERMA DAILY [facility] Last Admin: 09/25/22 08:50 Dose: 21 mg Nicotine Polacrilex (Nicotine Polacrilex 2 Mg Gum) 4 mg BUCCAL Q2H PRN PRN Reason: Nicotine Cravings Last Admin: 09/23/22 20:56 Dose: 4 mg Pharmacy Consult (Consult Rx Perform Med Rec) 1 each MISCELLANE ONCE PRN PRN Reason: Consult order Trazodone HCl (Trazodone Hcl 50 Mg Tablet) 50 mg PO BEDTIME MRX1 PRN PRN Reason: Insomnia Ziprasidone (Ziprasidone 20 Mg Capsule) 20 mg PO DAILY [facility] Last Admin: 09/25/22 08:49 Dose: 20 mg Ziprasidone (Ziprasidone 60 Mg Capsule) 60 mg PO BEDTIME [facility] Last Admin: 09/24/22 19:46 Dose: 60 mg Allergies Allergies Allergy/AdvReac Type Severity Reaction Status Date / Time No Known Allergies Allergy Verified 09/18/22 23:01 [No Known Allergies*] Assessment & Plan Assessment & Plan (1) Schizoaffective disorder, depressive type: Status: Acute Code(s): F25.1 - Schizoaffective disorder, depressive type Plan 46 yo male, hx of schizoaffective disorder, depressed, with presenting sx of psychosis and possibly jean per family with poor sleep, poor boundaries, preoccupation with internal stimuli and out of character behavior. Toxicology positive for cannabis. Plan: Hold Cymbalta Increase Geodon to 20 mg a.m. 40 mg h.s. - 09/20 Continue tx plan. 09/21: Added melatonin for insomnia. 09/23/22: Family meeting 09/24/22. 09/24/22: Increase Geodon to 20 mg a.m. 60 mg h.s. Addiction consult [facility] application Search for Jehovah'S Witness focused out pt referrals. 09/25/22: Continue current plan. Patient educated on: medication risk/benefits and therapeutic strategies Informed Consent: understands and further education needed Reason for contiued inpatient stay Substantial Risk for: rapid decompensation Time Spent With Patient Time: Total time managing care of this patient today ____ minutes.
[2022-09-25] MEDS: Melatonin 3 MG TABLET 6 MG PO (19:50)
[2022-09-25] MEDS: Ziprasidone 60 MG CAPSULE PO (19:50)
[2022-09-26 06:00] VITALS: BP 146/91; PULSE 84; RESP 16; TEMP 36.3; O2SAT 97
[2022-09-26] MEDS: metFORMIN HCl 500 MG TABLET PO (08:18)
[2022-09-26] MEDS: Nicotine 21 MG PATCH.TD24 TRANSDERMA (08:18)
[2022-09-26] MEDS: Ziprasidone 20 MG CAPSULE PO (08:18)
--- NOTE | 2022-09-26 14:24 | HO.PSYCHPN ---
Subjective Subjective Date of Service: 09/26/22 Reason For Visit: Psychosis Subjective Notes: Conditional Voluntary Healthcare Proxy: No Guardianship: No Medical Problems Affecting Mental Status: No Interim History: Long meeting with pt today where he expressed his issues with mental health care and how care has failed him in life. Discussed poor sleep-Unwilling to use any agent except Melatonin to attempt sleep improvement at this time. Still considering [place]. Medication Compliance: Yes Side effects from medications: No Attending Groups: Yes Review of Systems Acute medical concerns: No Medical Review of Systems: unchanged Mental Status Exam Mental Status Exam Patient Appearance: Fatigued Patient Orientation: Person, Place, Time and Situation Level of Consciousness: Alert Patient Behavior: Talkative and Good Eye Contact Mood Description: Depressed Affect Description: Flat Patient Cognition Impaired: No Ability to Follow Directions: Good Speech Pattern: Spontaneous Speech Memory Description: Intact Hallucinations: None Delusions: Paranoid Ideation Perceptual Disturbances: Depersonalization Thought Process: Rumination and Goal Oriented Thought Content: positive for Circumstantial and positive for Goal Oriented Depressive Symptoms: Increased Anxiety, Insomnia, Difficulty Sleeping, Hopelessness, Isolating-Friends/Family, Unhappiness, Increased Fatigue, Low Self Esteem, Loss of Energy and Difficulty Concentrating Judgement: Fair Diagnostics Vital Signs (24Hr): Vital Signs - 24 hr 09/25/22 16:09 09/26/22 06:00 Temperature 97.7 F 97.3 F Pulse Rate 54 84 Respiratory Rate 22 H 16 Blood Pressure 159/96 H 146/91 H Pulse Oximetry 96 97 Oxygen Delivery Method Room Air Room Air BMI result Body Mass Index 36.3 Labs 09/18/22 17:47 09/25/22 08:49 Labs: Laboratory Results - last 48 hr 09/25/22 08:49 Creatinine 0.88 Estim Creat Clear Calc 138.6 Estimated GFR > 60 Medications Medications Current Medications Acetaminophen (Acetaminophen 325 Mg Tablet) 650 mg PO Q6H PRN PRN Reason: Headache/Pain Mild Scale (1-3) Last Admin: 09/22/22 02:21 Dose: 650 mg Al Hydroxide/Mg Hydroxide (Magnesium Hydrox/Alum Hydrox 30 Ml Oral.Susp) 30 ml PO Q6H PRN PRN Reason: Heartburn/Nausea Duloxetine HCl (Duloxetine Hcl 30 Mg Capsule.Dr) 30 mg PO DAILY [facility] Last Admin: 09/19/22 10:04 Dose: 30 mg Hydroxyzine HCl (Hydroxyzine Hcl 25 Mg Tablet) 25 mg PO Q6H PRN PRN Reason: Anxiety Last Admin: 09/22/22 02:21 Dose: 25 mg Magnesium Hydroxide (Milk Of Magnesia 30 Ml Oral.Susp) 30 ml PO DAILY PRN PRN Reason: Constipation Melatonin (Melatonin 3 Mg Tablet) 6 mg PO BEDTIME [facility] Last Admin: 09/25/22 19:50 Dose: 6 mg Metformin HCl (Metformin Hcl 500 Mg Tablet) 500 mg PO DAILY [facility] Last Admin: 09/26/22 08:18 Dose: 500 mg Nicotine (Nicotine 21 Mg Patch.Td24) 21 mg TRANSDERMA DAILY [facility] Last Admin: 09/26/22 08:18 Dose: 21 mg Nicotine Polacrilex (Nicotine Polacrilex 2 Mg Gum) 4 mg BUCCAL Q2H PRN PRN Reason: Nicotine Cravings Last Admin: 09/23/22 20:56 Dose: 4 mg Pharmacy Consult (Consult Rx Perform Med Rec) 1 each MISCELLANE ONCE PRN PRN Reason: Consult order Trazodone HCl (Trazodone Hcl 50 Mg Tablet) 50 mg PO BEDTIME MRX1 PRN PRN Reason: Insomnia Ziprasidone (Ziprasidone 20 Mg Capsule) 20 mg PO DAILY [facility] Last Admin: 09/26/22 08:18 Dose: 20 mg Ziprasidone (Ziprasidone 60 Mg Capsule) 60 mg PO BEDTIME [facility] Last Admin: 09/25/22 19:50 Dose: 60 mg Allergies Allergies Allergy/AdvReac Type Severity Reaction Status Date / Time No Known Allergies Allergy Verified 09/18/22 23:01 [No Known Allergies*] Assessment & Plan Assessment & Plan (1) Schizoaffective disorder, depressive type: Status: Acute Code(s): F25.1 - Schizoaffective disorder, depressive type Plan 46 yo male, hx of schizoaffective disorder, depressed, with presenting sx of psychosis and possibly jean per family with poor sleep, poor boundaries, preoccupation with internal stimuli and out of character behavior. Toxicology positive for cannabis. Plan: Hold Cymbalta Increase Geodon to 20 mg a.m. 40 mg h.s. - 09/20 Continue tx plan. 09/21: Added melatonin for insomnia. 09/23/22: Family meeting 09/24/22. 09/24/22: Increase Geodon to 20 mg a.m. 60 mg h.s. Addiction consult [facility] application Search for Sikh focused out pt referrals. 09/26/22: Increase Melatonin to 10 mg HS Patient educated on: medication risk/benefits Informed Consent: understands Reason for contiued inpatient stay Substantial Risk for: rapid decompensation Time Spent With Patient Time: Total time managing care of this patient today ____ minutes.
[2022-09-26 19:10] VITALS: BP 134/90; PULSE 107; TEMP 36.9
[2022-09-26] MEDS: Ziprasidone 60 MG CAPSULE PO (20:48)
[2022-09-26] MEDS: Melatonin 3 MG TABLET 9 MG PO (20:49)
[2022-09-27 08:59] VITALS: BP 122/73; PULSE 102; RESP 16; TEMP 36.3; O2SAT 97
[2022-09-27] MEDS: metFORMIN HCl 500 MG TABLET PO (09:03)
[2022-09-27] MEDS: Nicotine 21 MG PATCH.TD24 TRANSDERMA (09:03)
[2022-09-27] MEDS: Ziprasidone 20 MG CAPSULE PO (09:04)
--- NOTE | 2022-09-27 09:46 | P.PNPSI_ITS ---
Subjective Subjective Date of Service: 09/27/22 Reason For Visit: Psychosis Subjective Notes: Conditional Voluntary Healthcare Proxy: No Guardianship: No Medical Problems Affecting Mental Status: No Interim History: doing well hyperverbal , anxious distarcted changing subjects frequently Medication Compliance: Yes Side effects from medications: No Attending Groups: Intermittent Review of Systems Acute medical concerns: No Medical Review of Systems: unchanged Mental Status Exam Mental Status Exam Narrative: fairly groomed, hair uncombed, Patient Orientation: Person, Place and Situation Level of Consciousness: Awake and Restless Patient Behavior: Talkative and Hyperactive Mood Description: Expansive Affect Description: Cheerful Patient Cognition Impaired: No Ability to Follow Directions: Fair Hallucinations: None Delusions: Not Present Thought Process: Distracted Thought Content: positive for Tangential Depressive Symptoms: Difficulty Concentrating Abnormal Motor Activity Signs and Symptoms: Hyperactivity Judgement: Fair Diagnostics Vital Signs (24Hr): Vital Signs - 24 hr 09/26/22 19:10 09/27/22 08:59 Temperature 98.4 F 97.3 F Pulse Rate 107 H 102 H Respiratory Rate 16 Blood Pressure 134/90 H 122/73 Pulse Oximetry 97 Oxygen Delivery Method Room Air BMI result Body Mass Index 36.3 Labs 09/18/22 17:47 09/25/22 08:49 Medications Medications Current Medications Acetaminophen (Acetaminophen 325 Mg Tablet) 650 mg PO Q6H PRN PRN Reason: Headache/Pain Mild Scale (1-3) Last Admin: 09/22/22 02:21 Dose: 650 mg Al Hydroxide/Mg Hydroxide (Magnesium Hydrox/Alum Hydrox 30 Ml Oral.Susp) 30 ml PO Q6H PRN PRN Reason: Heartburn/Nausea Duloxetine HCl (Duloxetine Hcl 30 Mg Capsule.Dr) 30 mg PO DAILY [facility] Last Admin: 09/19/22 10:04 Dose: 30 mg Hydroxyzine HCl (Hydroxyzine Hcl 25 Mg Tablet) 25 mg PO Q6H PRN PRN Reason: Anxiety Last Admin: 09/22/22 02:21 Dose: 25 mg Magnesium Hydroxide (Milk Of Magnesia 30 Ml Oral.Susp) 30 ml PO DAILY PRN PRN Reason: Constipation Melatonin (Melatonin 3 Mg Tablet) 9 mg PO BEDTIME [facility] Last Admin: 09/26/22 20:49 Dose: 9 mg Metformin HCl (Metformin Hcl 500 Mg Tablet) 500 mg PO DAILY [facility] Last Admin: 09/27/22 09:03 Dose: 500 mg Nicotine (Nicotine 21 Mg Patch.Td24) 21 mg TRANSDERMA DAILY [facility] Last Admin: 09/27/22 09:03 Dose: 21 mg Nicotine Polacrilex (Nicotine Polacrilex 2 Mg Gum) 4 mg BUCCAL Q2H PRN PRN Reason: Nicotine Cravings Last Admin: 09/23/22 20:56 Dose: 4 mg Pharmacy Consult (Consult Rx Perform Med Rec) 1 each MISCELLANE ONCE PRN PRN Reason: Consult order Trazodone HCl (Trazodone Hcl 50 Mg Tablet) 50 mg PO BEDTIME MRX1 PRN PRN Reason: Insomnia Ziprasidone (Ziprasidone 20 Mg Capsule) 20 mg PO DAILY [facility] Last Admin: 09/27/22 09:04 Dose: 20 mg Ziprasidone (Ziprasidone 60 Mg Capsule) 60 mg PO BEDTIME [facility] Last Admin: 09/26/22 20:48 Dose: 60 mg Allergies Allergies Allergy/AdvReac Type Severity Reaction Status Date / Time No Known Allergies Allergy Verified 09/18/22 23:01 [No Known Allergies*] Assessment & Plan Assessment & Plan (1) Schizoaffective disorder, depressive type: Status: Acute Code(s): F25.1 - Schizoaffective disorder, depressive type Assessment and Plan: less irritable, ongoing thought do 09/27/22 Plan 46 yo male, hx of schizoaffective disorder, depressed, with presenting sx of psychosis and possibly jean per family with poor sleep, poor boundaries, preoccupation with internal stimuli and out of character behavior. Toxicology positive for cannabis. Plan: Hold Cymbalta Increase Geodon to 20 mg a.m. 40 mg h.s. - 09/20 Continue tx plan. 09/21: Added melatonin for insomnia. 09/23/22: Family meeting 09/24/22. 09/24/22: Increase Geodon to 20 mg a.m. 60 mg h.s. Addiction consult [facility] application Search for [employer] focused out pt referrals. 09/26/22: Increase Melatonin to 10 mg HS Patient educated on: medication risk/benefits Informed Consent: understands Reason for contiued inpatient stay Substantial Risk for: rapid decompensation Time Spent With Patient Time: Total time managing care of this patient today ____ minutes.
[2022-09-27] MEDS: Melatonin 3 MG TABLET 9 MG PO (22:01)
[2022-09-27] MEDS: Ziprasidone 60 MG CAPSULE PO (22:02)
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
[2022-09-28 09:25] VITALS: BP 168/73; PULSE 118; RESP 16; TEMP 36.8; O2SAT 97
[2022-09-28] MEDS: Ziprasidone 20 MG CAPSULE PO (09:26)
[2022-09-28] MEDS: metFORMIN HCl 500 MG TABLET PO (09:26)
[2022-09-28] MEDS: Nicotine 21 MG PATCH.TD24 TRANSDERMA (09:26)
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
--- NOTE | 2022-09-28 10:10 | P.PNPSI_ITS ---
Subjective Subjective Date of Service: 09/28/22 Reason For Visit: Psychosis Subjective Notes: Conditional Voluntary Healthcare Proxy: No Guardianship: No Medical Problems Affecting Mental Status: No Review of Systems Medical Review of Systems: unchanged Mental Status Exam Mental Status Exam Narrative: Pt in manic state admittedly- discussed scaring patients on unit yesterday - referring to himself as Edgard Henriquez in that like hitler he was scary tirade but unlike Hitler he wasn't going to kill anyone- He says he was redirected to his room and decompressed there- He realizes he is manic but doesn't want to take lithium that was suggested- feels too many s/e risks for him So I discussed with him inc ziprasodone more significantly instead. Patient Appearance: Disheveled and Unkempt Patient Orientation: Person, Place, Time and Situation Level of Consciousness: Awake and Alert Patient Behavior: Talkative, Distractible and Impulsive Affect Description: Labile and Expansive Patient Cognition Impaired: No Ability to Follow Directions: Fair Speech Pattern: Rambling and Excessive Hallucinations: None Thought Process: Racing Thought Content: positive for Tangential Depressive Symptoms: Difficulty Sleeping (though says he slept last pm) Diagnostics Vital Signs (24Hr): Vital Signs - 24 hr 09/28/22 09:25 Temperature 98.2 F Pulse Rate 118 H Respiratory Rate 16 Blood Pressure 168/73 H Pulse Oximetry 97 Oxygen Delivery Method Room Air BMI result Body Mass Index 36.3 Labs 09/18/22 17:47 09/25/22 08:49 Medications Medications Current Medications Acetaminophen (Acetaminophen 325 Mg Tablet) 650 mg PO Q6H PRN PRN Reason: Headache/Pain Mild Scale (1-3) Last Admin: 09/22/22 02:21 Dose: 650 mg Al Hydroxide/Mg Hydroxide (Magnesium Hydrox/Alum Hydrox 30 Ml Oral.Susp) 30 ml PO Q6H PRN PRN Reason: Heartburn/Nausea Duloxetine HCl (Duloxetine Hcl 30 Mg Capsule.Dr) 30 mg PO DAILY [facility] Last Admin: 09/19/22 10:04 Dose: 30 mg Hydroxyzine HCl (Hydroxyzine Hcl 25 Mg Tablet) 25 mg PO Q6H PRN PRN Reason: Anxiety Last Admin: 09/22/22 02:21 Dose: 25 mg Magnesium Hydroxide (Milk Of Magnesia 30 Ml Oral.Susp) 30 ml PO DAILY PRN PRN Reason: Constipation Melatonin (Melatonin 3 Mg Tablet) 9 mg PO BEDTIME [facility] Last Admin: 09/27/22 22:01 Dose: 9 mg Metformin HCl (Metformin Hcl 500 Mg Tablet) 500 mg PO DAILY [facility] Last Admin: 09/28/22 09:26 Dose: 500 mg Nicotine (Nicotine 21 Mg Patch.Td24) 21 mg TRANSDERMA DAILY [facility] Last Admin: 09/28/22 09:26 Dose: 21 mg Nicotine Polacrilex (Nicotine Polacrilex 2 Mg Gum) 4 mg BUCCAL Q2H PRN PRN Reason: Nicotine Cravings Last Admin: 09/23/22 20:56 Dose: 4 mg Pharmacy Consult (Consult Rx Perform Med Rec) 1 each MISCELLANE ONCE PRN PRN Reason: Consult order Trazodone HCl (Trazodone Hcl 50 Mg Tablet) 50 mg PO BEDTIME MRX1 PRN PRN Reason: Insomnia Ziprasidone (Ziprasidone 20 Mg Capsule) 20 mg PO DAILY [facility] Last Admin: 09/28/22 09:26 Dose: 20 mg Ziprasidone (Ziprasidone 60 Mg Capsule) 60 mg PO BEDTIME [facility] Last Admin: 09/27/22 22:02 Dose: 60 mg Allergies Allergies Allergy/AdvReac Type Severity Reaction Status Date / Time No Known Allergies Allergy Verified 09/18/22 23:01 [No Known Allergies*] Assessment & Plan Assessment & Plan (1) Schizoaffective disorder, depressive type: Status: Acute Code(s): F25.1 - Schizoaffective disorder, depressive type Assessment and Plan: less irritable, ongoing thought do 09/27/22 inc pressured speech - and hyper/impulisve, religiosity and hypersexual doesn't want to try lithium suggested inc of ziprasodone which he agreed I also changed him from hs ziprasodone to with meals Plan 46 yo male, hx of schizoaffective disorder, depressed, with presenting sx of psychosis and possibly jean per family with poor sleep, poor boundaries, preoccupation with internal stimuli and out of character behavior. Toxicology positive for cannabis. Plan: Hold Cymbalta Increase Geodon to 20 mg a.m. 40 mg h.s. - 09/20 Continue tx plan. 09/21: Added melatonin for insomnia. 09/23/22: Family meeting 09/24/22. 09/24/22: Increase Geodon to 20 mg a.m. 60 mg h.s. Addiction consult [facility] application Search for [facility] focused out pt referrals. 09/26/22: Increase Melatonin to 10 mg HS Patient educated on: diagnosis, medication risk/benefits and therapeutic strategies Informed Consent: understands Reason for contiued inpatient stay Substantial Risk for: harm to others and rapid decompensation Time Spent With Patient Time: Total time managing care of this patient today ____ minutes.
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
[2022-09-28] MEDS: Ziprasidone 80 MG CAPSULE PO (19:22)
[2022-09-28 19:30] VITALS: BP 144/84; PULSE 94; TEMP 36.7
[2022-09-28] MEDS: Melatonin 3 MG TABLET 9 MG PO (22:53)
[2022-09-29 06:00] VITALS: BP 144/76; PULSE 97; RESP 14; TEMP 36.4; O2SAT 97
[2022-09-29] MEDS: Nicotine 21 MG PATCH.TD24 TRANSDERMA (09:19)
[2022-09-29] MEDS: Ziprasidone 40 MG CAPSULE PO (09:20)
[2022-09-29] MEDS: metFORMIN HCl 500 MG TABLET PO (09:20)
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
[2022-09-29] MEDS: Ziprasidone 80 MG CAPSULE PO (17:38)
[2022-09-29] MEDS: Melatonin 3 MG TABLET 9 MG PO (19:32)
[2022-09-30] MEDS: Ziprasidone 40 MG CAPSULE PO (08:46)
[2022-09-30] MEDS: metFORMIN HCl 500 MG TABLET PO (08:46)
[2022-09-30 08:52] VITALS: BP 165/100; PULSE 84; RESP 18; TEMP 36; O2SAT 96
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
[2022-09-30 16:54] VITALS: BP 167/81; PULSE 89; TEMP 36.5; O2SAT 97
[2022-09-30] MEDS: Ziprasidone 80 MG CAPSULE PO (18:44)
[2022-09-30] MEDS: Melatonin 3 MG TABLET 9 MG PO (20:19)
--- NOTE | 2022-10-01 | ECG_ITS ---
Test Reason : elevated bp Blood Pressure : / mmHG Vent. Rate : 094 BPM Atrial Rate : 094 BPM P-R Int : 148 ms QRS Dur : 096 ms QT Int : 364 ms P-R-T Axes : 067 015 029 degrees QTc Int : 455 ms Sinus rhythm with Premature supraventricular complexes Otherwise normal ECG When compared with ECG of 18-SEP-2022 22:18, Premature supraventricular complexes are now Present Referred By: Nikky Conte Electronically Signed By:HANDY AVILA
[2022-10-01] MEDS: Ziprasidone 40 MG CAPSULE PO (09:02)
[2022-10-01] MEDS: metFORMIN HCl 500 MG TABLET PO (09:02)
[2022-10-01 09:21] VITALS: BP 156/92; PULSE 83; TEMP 36.7; O2SAT 99
[2022-10-01] MEDS: Nicotine 14 MG PATCH.TD24 TRANSDERMA (10:10)
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
[2022-10-01] MEDS: Acetaminophen 325 MG TABLET 650 MG PO (15:23)
--- NOTE | 2022-10-01 17:17 | P.PNPSI_ITS ---
Subjective Subjective Date of Service: 10/01/22 Reason For Visit: Psychosis Subjective Notes: Conditional Voluntary Healthcare Proxy: No Guardianship: No Medical Problems Affecting Mental Status: No Interim History: Rupesh has decided he will accept out patient referrals for Sikh counseling, referral to [facility], referral to [facility]. He will not accept any further medications, no mood stabilizer at this time. Discharge was discussed and planned for 10/02. Message left for sister. Discussed plan with mother and pt's refusal to treat current symptoms with medications. Pt has had no inappropriate behaviors on the unit today. Team is discussing risks of provocative behaviors with him. Mother expressed concern, discussed involving legal should he behave provocatively again at home with their homekeeper or his sister. Mother states she does not want to involve any legal agencies as she is well exposed to this system in her profession. Told mother pt was welcome to return should she change his mind about treatment. Medication Compliance: Yes Side effects from medications: No Attending Groups: Intermittent Review of Systems Acute medical concerns: No Medical Review of Systems: unchanged Mental Status Exam Mental Status Exam Patient Appearance: Appropriate Patient Orientation: Person, Place, Time and Situation Level of Consciousness: Alert Patient Behavior: Talkative, Distractible and Good Eye Contact Mood Description: Constricted Affect Description: Constricted Patient Cognition Impaired: No Ability to Follow Directions: Good Speech Pattern: Spontaneous Speech Memory Description: Intact Hallucinations: None Delusions: Grandiose Thought Process: Intact and Goal Oriented Thought Content: positive for Goal Oriented and positive for Suicidal Ideation (denies) Depressive Symptoms: Thoughts of /Suicide (denies) Judgement: Good Diagnostics Vital Signs (24Hr): Vital Signs - 24 hr 10/01/22 09:21 Temperature 98.0 F Pulse Rate 83 Blood Pressure 156/92 H Pulse Oximetry 99 Oxygen Delivery Method Room Air BMI result Body Mass Index 36.3 Labs 09/18/22 17:47 09/25/22 08:49 Medications Medications Current Medications Acetaminophen (Acetaminophen 325 Mg Tablet) 650 mg PO Q6H PRN PRN Reason: Headache/Pain Mild Scale (1-3) Last Admin: 10/01/22 15:23 Dose: 650 mg Al Hydroxide/Mg Hydroxide (Magnesium Hydrox/Alum Hydrox 30 Ml Oral.Susp) 30 ml PO Q6H PRN PRN Reason: Heartburn/Nausea Clonidine HCl (Clonidine Hcl 0.1 Mg Tablet) 0.1 mg PO TID PRN; Protocol PRN Reason: anxiety Haloperidol (Haloperidol 5 Mg Tablet) 5 mg PO TID PRN PRN Reason: psychosis, jean Hydroxyzine HCl (Hydroxyzine Hcl 25 Mg Tablet) 25 mg PO Q6H PRN PRN Reason: Anxiety Last Admin: 09/22/22 02:21 Dose: 25 mg Magnesium Hydroxide (Milk Of Magnesia 30 Ml Oral.Susp) 30 ml PO DAILY PRN PRN Reason: Constipation Melatonin (Melatonin 3 Mg Tablet) 9 mg PO BEDTIME [facility] Last Admin: 09/30/22 20:19 Dose: 9 mg Metformin HCl (Metformin Hcl 500 Mg Tablet) 500 mg PO DAILY [facility] Last Admin: 10/01/22 09:02 Dose: 500 mg Nicotine (Nicotine 14 Mg Patch.Td24) 14 mg TRANSDERMA DAILY [facility] Last Admin: 10/01/22 10:10 Dose: 14 mg Nicotine Polacrilex (Nicotine Polacrilex 2 Mg Gum) 4 mg BUCCAL Q2H PRN PRN Reason: Nicotine Cravings Last Admin: 09/23/22 20:56 Dose: 4 mg Pharmacy Consult (Consult Rx Perform Med Rec) 1 each MISCELLANE ONCE PRN PRN Reason: Consult order Ziprasidone (Ziprasidone 80 Mg Capsule) 80 mg PO DAILY@1800 [facility] Last Admin: 09/30/22 18:44 Dose: 80 mg Ziprasidone (Ziprasidone 40 Mg Capsule) 40 mg PO DAILY [facility] Last Admin: 10/01/22 09:02 Dose: 40 mg Allergies Allergies Allergy/AdvReac Type Severity Reaction Status Date / Time No Known Allergies Allergy Verified 09/18/22 23:01 [No Known Allergies*] Assessment & Plan Assessment & Plan (1) Schizoaffective disorder, depressive type: Status: Acute Code(s): F25.1 - Schizoaffective disorder, depressive type Assessment and Plan: less irritable, ongoing thought do 09/27/22 inc pressured speech - and hyper/impulisve, religiosity and hypersexual doesn't want to try lithium suggested inc of ziprasodone which he agreed I also changed him from hs ziprasodone to with meals Plan 46 yo male, hx of schizoaffective disorder, depressed, with presenting sx of psychosis and possibly jean per family with poor sleep, poor boundaries, preoccupation with internal stimuli and out of character behavior. Toxicology positive for cannabis. Plan: Hold Cymbalta Increase Geodon to 20 mg a.m. 40 mg h.s. - 09/20 Continue tx plan. 09/21: Added melatonin for insomnia. 09/23/22: Family meeting 09/24/22. 09/24/22: Increase Geodon to 20 mg a.m. 60 mg h.s. Addiction consult [facility] application Search for Sikh focused out pt referrals. 09/26/22: Increase Melatonin to 10 mg HS 09/29/22: Reviewing lamictal, trileptal to add to Geodon. 09/30/22: Refusing medications. Ordered Clonidine and Haldol prns for emergencies Pt may need application for Section 7/. Discussed with him and he was challenging of this. 10/01/22: Pt declines further treatment Discharge planned for 10/02/22. Full case review with team and Dr. Monson. Care review with pt's mother as well. Patient educated on: therapeutic strategies Informed Consent: understands Reason for contiued inpatient stay Substantial Risk for: stable for discharge Time Spent With Patient Time: Total time managing care of this patient today 20 minutes.
[2022-10-01] MEDS: Ziprasidone 80 MG CAPSULE PO (19:34)
[2022-10-01] MEDS: hydrOXYzine HCL 25 MG TABLET PO (19:41)
[2022-10-01 20:00] VITALS: BP 180/99; PULSE 95; TEMP 36.2; O2SAT 97
[2022-10-01] MEDS: cloNIDine HCL 0.1 MG TABLET PO (20:09)
--- NOTE | 2022-10-01 20:15 | PC.NURSE ---
BP noted to be 180/99, patient still c/o headache, Clonidine 0.1 mg given po as a prn.
[2022-10-01] MEDS: Melatonin 3 MG TABLET 9 MG PO (23:28)
[2022-10-02] MEDS: metFORMIN HCl 500 MG TABLET PO (08:06)
[2022-10-02] MEDS: Ziprasidone 40 MG CAPSULE PO (08:06)
[2022-10-02 08:25] VITALS: BP 164/99; PULSE 63; RESP 16; TEMP 36.6; O2SAT 99
[2022-10-02 08:26] VITALS: BMI 36.5
--- NOTE | 2022-10-02 16:13 | P.DS_ITS ---
DS: Providers Provider Date of Service: 10/02/22 Date of admission: 09/18/22 22:41 Primary care physician: Unknown Physician Admitting clinician: Nikky Conte Attending physician on admission: John Monson Consults: 09/24/22 13:59 Addiction Medicine Routine Consulting Provider: Addiction Covering Reason for consultation: cannabis/nicotine-$600/month; ETOH, looking for NA, AA resources, support Has provider been notified: No Attending physician on discharge: John Monson Discharging clinician: Nikky Conte DS: Diagnosis Discharge Diagnosis (1) Schizoaffective disorder, depressive type: Status: Acute DS: Medications Discharge Medications Home Medications: Previous Rx's Medication Instructions Recorded melatonin 3 mg tablet 9 mg PO BEDTIME #90 tabs 10/02/22 metformin 500 mg tablet 1 tab PO DAILY 30 days #30 tabs 10/02/22 nicotine (polacrilex) 2 mg gum 4 mg buccal Q2H PRN Nicotine 10/02/22 Cravings #50 ea nicotine 14 mg/24 hr daily 14 mg transdermal DAILY #28 ea 10/02/22 transdermal patch ziprasidone HCl 40 mg capsule 40 mg PO DAILY #30 caps 10/02/22 ziprasidone HCl 80 mg capsule 80 mg PO DAILY@1800 #30 caps 10/02/22 Mental Status Exam Mental Status Exam Patient Appearance: Appropriate Patient Orientation: Person, Place, Time and Situation Level of Consciousness: Alert Patient Behavior: Talkative, Distractible and Good Eye Contact Mood Description: Constricted Affect Description: Constricted Patient Cognition Impaired: No Ability to Follow Directions: Good Speech Pattern: Spontaneous Speech Memory Description: Intact Hallucinations: None Delusions: Grandiose Thought Process: Intact and Goal Oriented Thought Content: positive for Goal Oriented and positive for Suicidal Ideation (denies) Depressive Symptoms: Thoughts of /Suicide (denies) Judgement: Good DS: Summary Hospital Course Hospital Course: Admission to adult psychiatry for exacerbation of schizoaffective disorder, bipolar type with jean and cannabis use disorder. Cymbalta was discontinued, Geodon was increased. Rupesh refused to begin any mood stabilizer during his admission. He agreed to attend IOP with [facility] to address his cannabis dependence. He chose a [facility] based out patient therapist and prescriber and will attend an appointment with [facility] to discuss a return to work. His family did not want to pursue any type of court process to affirm treatment compliance. Rupesh and his family are aware he may return at any time to continue to address his mood symptoms in the future. Status at Discharge Functional status at discharge: independent ambulation Overall status at discharge: patient is progressing back to baseline Time Spent with Patient Time attestation: Total time managing care of this patient today ____ minutes. Time spent: Greater than 30 minutes Discharge Plan Discharge Anticipated Discharge Date/Time: 10/02/22 12:00 Patient Disposition: Home, Self-Care Discharge Diagnosis: Schizoaffective Disorder, Bipolar Type Cannabis Use Disorder, Severe, Dependence Referrals: [facility] ([facility]): Virtual IOP Program (Substance Use Treatment) [Other] - Tomorrow (Initial Intake with IOP program. Check email for a link to the appointment. [facility] staff will call you to schedule and intake appointment. If you are unable to be reached they will leave message for you. You may call them at [phone] at any time on to schedule and confirm appointment for intake.) [facility] ([facility]) [Other] (Referral for services at [facility] ) [facility] [Other] - 10/09/22 1:00 pm (Follow-up discharge appointments for therapy/psychiatry Initial diagnostic evaluation by telephone.) Maicol Toussaint MD [Physician] - (Office will call you to schedule follow up appointment.) Discharge Medications: New nicotine 14 mg/24 hr Patch 24 Hour 14 mg transdermal DAILY Qty: 28 0RF nicotine (polacrilex) 2 mg Gum 4 mg buccal Q2H PRN (Reason: Nicotine Cravings) Qty: 50 0RF ziprasidone HCl 80 mg Capsule 80 mg PO DAILY@1800 Qty: 30 0RF melatonin 3 mg Tablet 9 mg PO BEDTIME Qty: 90 0RF ziprasidone HCl 40 mg Capsule 40 mg PO DAILY Qty: 30 0RF Continued metformin 500 mg tablet 1 tab PO DAILY 30 Days Qty: 30 0RF Discontinued ziprasidone HCl 20 mg capsule 1 cap PO BID duloxetine 30 mg Capsule,Delayed Release(Dr/Ec) 30 mg PO DAILY 30 Days Qty: 30 0RF Discharge Orders: Discharge Order (Routine); Ordered 10/02/22 Ordered By: Nikky Conte Diet: Advance to usual diet Activity on Discharge: As tolerated Stand Alone Forms: Patient Portal Discharge page, Community Support, Work/School Release Care Plan Goals: Mood and Behavioral Stabilization Sobriety Health Concerns: Mood and Behavioral Stabilization Sobriety Plan of Treatment: Attend follow up appointments Take medications as directed Assessment: Non suicidal, Non homicidal, Non psychotic, hypomanic Discharge Date/Time: 10/02/22 11:27
== END 2022-10-02 11:27 | disposition home or self-care (01) | DRG 885 ==
LOC: HO.ED 17:55 → HO.PM5 22:48
PROVIDERS: Physician Assistant; Admitting Provider Psychiatry & Neurology Psychiatry; Emergency Provider Emergency Medicine Emergency Medical Services; Visit Provider Clinical Nurse Specialist Psychiatric/Mental Health, Adult
DX: F25.1 Schizoaffective disorder, depressive type (principal); Z20.822 Contact with and (suspected) exposure to COVID-19; Z91.14 Patient's other noncompliance with medication regimen; Z87.891 Personal history of nicotine dependence; Z79.84 Long term (current) use of oral hypoglycemic drugs; Z79.899 Other long term (current) drug therapy
CPT/HCPCS: 36415; 80053; 80061; 80307; 81003; 82077; 82565; 82607; 82746; 83036; 83735; 84443; 85025; 87635; 93005; 99285; S9485

== ENCOUNTER 2023-04-14 17:59 | Inpatient (IN) | payer OTHER, SELFPAY ==
[2023-04-14 18:06] VITALS: PULSE 74; RESP 18; O2SAT 99; BMI 33.0
--- NOTE | 2023-04-14 18:10 | PC.NURSE ---
security at bedside doing pt place change roof bolter. security helping pt in bathroom to obtain urine and place change roof bolter.
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
[2023-04-14 19:02] LABS: Appearance Urine Clear; Color Urine Yellow; Glucose Urine UA Negative (Negative); Leukocyte Esterase Urine Trace (Negative); Nitrite Urine Negative (Negative); UMIC TRIGGER UACC YES; Urine Blood Negative (Negative); Urine Ketones Negative (Negative); Urine Protein Negative (Neg-Trace)
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
[2023-04-14 19:12] LABS: Bacteria Urine None Seen (None Seen); Hyaline Casts Urine 0-2 /LPF (0-2); RBC Urine 0-2 /HPF (0-2); Squamous Epithelial Cell Urine 0-2 /HPF (0-2); WBC Urine 0-5 /HPF (0-5)
[2023-04-14 20:07] LABS: MANUAL DIFF FLAG NO
[2023-04-14 20:08] VITALS: BP 138/69; PULSE 73; RESP 20; TEMP 37.1; O2SAT 96
[2023-04-14 20:09] LABS: Basophils Absolute Auto 0.1 X10*3/uL (0.0-0.2); Basophils Percent Auto 0.8 % (0-2); Eosinophils Absolute Auto 0.4 X10*3/uL (0.0-0.4); Eosinophils Percent Auto 3.6 % (0-4); Hematocrit 43.5 % (42.0-52.0); Hemoglobin 15.1 g/dl (14.0-18.0); Imm Gran Abs Auto 0.04 X10*3/uL (0.00-0.03); Imm Gran Pct Auto 0.4 % (0.0-0.4); Lymphocytes Absolute Auto 3.2 X10*3/uL (1.2-4.9); Lymphocytes Percent Auto 30.3 % (20-40); Mean Corpuscular HGB Conc 34.7 g/dl (31.0-36.0); Mean Corpuscular Hemoglobin 31.5 pg (27.0-33.0); Mean Corpuscular Volume 90.6 fL (80.0-98.0); Mean Platelet Volume 10.4 fL (9.4-12.4); Monocytes Absolute Auto 0.7 X10*3/uL (0.1-1.2); Monocytes Percent Auto 6.9 % (2-11); Neutrophils Absolute Auto 6.2 x10*3/uL (2.0-8.3); Platelet Count 254 X10*3/uL (160-400); Red Cell Distribution Width 12.3 % (11.0-16.0); White Blood Count 10.6 X10*3/uL (4.8-10.8)
[2023-04-14 20:21] LABS: COVID-19 Test Negative (Negative); IDNOW Serial# BCCEAD1C
[2023-04-14 20:25] LABS: Amphetamine Screen Urine Not Detected (Not Detect); Barbiturates, Urine Not Detected (Not Detect); Benzodiazepines Screen Urine Not Detected (Not Detect); Cannabinoid Screen Urine POSITIVE (Not Detect); Cocaine Screen Urine Not Detected (Not Detect); Fentanyl, urine Not Detected (Not Detect); Opiate Screen Urine Not Detected (Not Detect); Phencyclidine Screen Urine Not Detected (Not Detect)
[2023-04-14 20:29] LABS: Alanine Aminotransferase 13 U/L (0-40); Albumin Level 4.2 g/dL (3.5-5.0); Alkaline Phosphatase 51 U/L (39-117); Anion Gap 13 (12-20); Aspartate Amino Transferase 18 U/L (5-37); Bilirubin Direct 0.2 mg/dL (0.0-0.5); Bilirubin Total 0.4 mg/dL (0.0-1.0); Blood Urea Nitrogen 8 mg/dL (9-16); Calcium 9.6 mg/dL (8.4-10.2); Carbon Dioxide 25 mmol/L (22-29); Chloride 106 mmol/L (96-108); Creatinine Clr Calc Pharmacy 147.5; Estimated Glomerular Filt Rate > 60; Ethanol < 10 mg/dL; Glucose Random 90 mg/dL (60-115); Potassium 4.2 mmol/L (3.3-5.1); Sodium 140 mmol/L (135-145); Total Protein 7.1 g/dL (6.5-8.0)
[2023-04-14 23:31] VITALS: BP 119/67; PULSE 67; RESP 19; O2SAT 97
[2023-04-15 06:30] VITALS: BP 116/71; PULSE 67; RESP 16; TEMP 36.4; O2SAT 96
--- NOTE | 2023-04-15 06:50 | PC.NURSE ---
RN assumed care at 2300. Patient awake, able to make needs known. Patient up to use bathroom when needed. Patient guarded and paranoid, otherwise pleasant. Sister Anna called this RN to ask to speak to CARE team. Plan of care ongoing
--- NOTE | 2023-04-15 09:15 | PC.NURSE ---
assumed care of pt at 0700. report taken from LIVAN Bobby. pt sleeping on stretcher rachael. pt sister called to talk to pt. pt sleeping so sister said not to disturb him and she will call back later. pt sister told this RN that she would like to speak with care team after they speak with pt. pt sister believes pt will not share all information that care team should know. pt currently resting on stretcher in no apparent distress. pt requesting food. diet order put in.
[2023-04-15 09:21] VITALS: BP 113/63; PULSE 68; RESP 18; TEMP 36.7; O2SAT 96
--- NOTE | 2023-04-15 15:27 | MHC.CARE ---
[facility] correctional supervisor called Kaye Hannongarty [phone], she reports he was approved for [facility] services and they will be opening him up next week. She is requesting a phone call to inform her what unit he will be placed on.
--- NOTE | 2023-04-15 19:25 | MHC.CARE ---
EVANGELINA Cowan made aware of disposition.
--- NOTE | 2023-04-15 19:45 | PC.NURSE ---
[facility] team notified rn pt has been on m5 and notified rn inpatient staff will be calling for report to pod
--- NOTE | 2023-04-15 19:55 | PC.NURSE ---
pt ambulating well in common room requesting nicotine patch for 1 PPD cigarette use- MD Oswald asked if can order one. +CMS. no distress noted. calm, cooperative
[2023-04-15] MEDS: Nicotine 21 MG PATCH.TD24 TRANSDERMA (20:02)
--- NOTE | 2023-04-15 20:06 | PC.NURSE ---
pt given nicotine patch and additional pillow/remote
[2023-04-15 23:50] VITALS: BP 120/76; PULSE 80; RESP 18; TEMP 36.4; O2SAT 98
--- NOTE | 2023-04-16 01:55 | PC.ADMIT ---
PT is a 47 year old male previously known to unit, admitted to unit on CV at 2340 from [facility] POD, initially assessed at home in [place] on 04/15/23 at the request of his sister who had contacted [facility] police to conduct a wellness check due to concerns that PT was presenting with acute jean. PT unable to care for self based on state of his home, weight loss, not sleeping, becoming increasingly intrusive of other's personal space, and being off psychiatric medication for several months. Upon arrival to unit VS taken, skin/contraband check completed, PT appropriate during admission, sitting quietly reading the Bible, and answering most questions appropriately, PT denies SI/HI, A/V/H, reports safe on unit. PT is current everyday smoker, refusing the influenza vaccine. PT 's appearance is disheveled. PT refused HS Geodon. Tox screen positive for marijuana. PT states he is in recovery from ETOH. PT currently resting in bed with eyes closed.
[2023-04-16 08:21] LABS: Estimated Average Glucose 105 mg/dL; Hemoglobin A1c % 5.3 % (<6.0)
[2023-04-16 08:30] VITALS: BP 135/68; PULSE 97; RESP 16; TEMP 36.4; O2SAT 99
[2023-04-16 08:36] LABS: Cholesterol 172 mg/dL (<200); HDL Cholesterol 32 mg/dL (>40); LDL Cholesterol Calculated 100 mg/dL (<100); Triglycerides 202 mg/dL (<150)
[2023-04-16] MEDS: Nicotine 14 MG PATCH.TD24 TRANSDERMA (08:47)
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
[2023-04-16 11:33] VITALS: BMI 31.8
[2023-04-16] MEDS: Melatonin 3 MG TABLET 9 MG PO (19:44)
[2023-04-16 19:54] VITALS: BP 136/80; PULSE 89; RESP 16; TEMP 36.1; O2SAT 96
[2023-04-17 06:00] VITALS: BP 137/99; PULSE 56; RESP 16; TEMP 36.4; O2SAT 98
[2023-04-17] MEDS: Nicotine 14 MG PATCH.TD24 TRANSDERMA (08:47)
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
[2023-04-17] MEDS: Acetaminophen 325 MG TABLET 650 MG PO (14:13)
[2023-04-17 21:05] VITALS: BP 133/89; PULSE 89; TEMP 36.3
[2023-04-17] MEDS: Melatonin 3 MG TABLET 9 MG PO (21:06)
[2023-04-17] MEDS: traZODone HCL 50 MG TABLET PO (21:07)
[2023-04-18 06:00] VITALS: BP 152/95; PULSE 80; RESP 16; TEMP 36.2; O2SAT 96
[2023-04-18] MEDS: ARIPiprazole 5 MG TABLET PO (09:16)
[2023-04-18] MEDS: Nicotine 14 MG PATCH.TD24 TRANSDERMA (09:16)
--- NOTE | 2023-04-18 11:17 | P.PNPSI_ITS ---
Subjective Subjective Date of Service: 04/18/23 Reason For Visit: Psychosis Interim History: Patient seen and discussed. He reports he is feeling well. He started Aripiprazole today. He denies side effects. He says last night was the first night he got some rest. He denies SI. He has been cooperative with care. Has good appetite. Participating in the milieu. Medication Compliance: Yes Review of Systems Review of Systems Constitutional : No Weight loss, No Fever, No Chills, No Night Sweats, No Fatigue, No Malaise ENT/Mouth : No Hearing loss, No Ear Pain, No Nasal Congestion, No Sinus Pain, No Hoarseness, No sore throat, No Rhinorrhea, No Swallowing Difficulty Eyes: No Eye Pain, No Swelling, No Redness, No Foreign Body, No Discharge, No Vision Changes Cardiovascular : No Chest Pain, No SOB, No Dyspnea on Exertion, No Orthopnea, No Edema, No Palpitations Respiratory : No Cough, No Sputum, No Wheezing, No Smoke Exposure, No Dyspnea Gastrointestinal : No Nausea, No Vomiting, No Diarrhea, No Constipation, No abdominal Pain, No Hematochezia, No Melena Genitourinary : no irregular bleeding, No Dysuria, No Urinary Frequency, No Hematuria, No Urinary Incontinence, No Urgency, No Flank Pain, No Urinary Flow Changes, No Hesitancy Musculoskeletal : No joint pain, No Myalgias, No Joint Swelling Skin : No Skin Lesions, No rash Neuro : No Weakness, No Numbness, No Paresthesias, No Loss of Consciousness, No Dizziness, No Headache Psych : No Anxiety/Panic, No Depression, No SI/HI/AH/VH, No Social Issues, Heme/Lymph: No Bruising, No Bleeding,No Lymphadenopathy Endocrine : No Polyuria, No Polydipsia, No Temperature Intolerance Mental Status Exam Mental Status Exam Narrative: Pt is alert and oriented; behavior is cooperative, friendly and calm; dressed in hospital attire, disheveled but with improved hygiene; mood is described as depressed and affect congruent, downcast; eye contact appropriate; some signs of TD; Speech is a little latent but otherwise normal rate, volume and prosody and not pressured; psychomotor retardation present; thought process is organized and goal directed; Thought content is on housing situation, treatment; possibly some delusional thinking; denies any SI/HI. AH intermittently present; delusions present, thinking he is seeing things out of the corner of his eye; some thought blocking. Patients insight and judgment impaired Diagnostics Vital Signs (24Hr): Vital Signs - 24 hr 04/17/23 21:05 04/18/23 06:00 Temperature 97.3 F 97.2 F Pulse Rate 89 80 Respiratory Rate 16 Blood Pressure 133/89 152/95 H Pulse Oximetry 96 Oxygen Delivery Method Room Air BMI result Body Mass Index 31.8 Labs 04/14/23 20:03 04/14/23 20:03 Medications Medications Current Medications Acetaminophen (Acetaminophen 325 Mg Tablet) 650 mg PO Q6H PRN PRN Reason: Headache/Pain Mild Scale (1-3) Last Admin: 04/17/23 14:13 Dose: 650 mg Al Hydroxide/Mg Hydroxide (Magnesium Hydrox/Alum Hydrox 30 Ml Oral.Susp) 30 ml PO Q6H PRN PRN Reason: Heartburn/Nausea Aripiprazole (Aripiprazole 5 Mg Tablet) 5 mg PO DAILY [facility] Last Admin: 04/18/23 09:16 Dose: 5 mg Hydroxyzine HCl (Hydroxyzine Hcl 25 Mg Tablet) 25 mg PO Q6H PRN PRN Reason: Anxiety Magnesium Hydroxide (Milk Of Magnesia 30 Ml Oral.Susp) 30 ml PO DAILY PRN PRN Reason: Constipation Melatonin (Melatonin 3 Mg Tablet) 9 mg PO BEDTIME [facility] Last Admin: 04/17/23 21:06 Dose: 9 mg Nicotine (Nicotine 14 Mg Patch.Td24) 14 mg TRANSDERMA DAILY [facility] Last Admin: 04/18/23 09:16 Dose: 14 mg Nicotine Polacrilex (Nicotine Polacrilex 2 Mg Gum) 4 mg BUCCAL Q2H PRN PRN Reason: Nicotine Cravings Nicotine Polacrilex (Nicotine Polacrilex 2 Mg Gum) 4 mg BUCCAL Q2H PRN PRN Reason: Nicotine Cravings Olanzapine (Olanzapine 5 Mg Tablet) 5 mg PO TID PRN PRN Reason: agitation Trazodone HCl (Trazodone Hcl 50 Mg Tablet) 50 mg PO BEDTIME MRX1 PRN PRN Reason: Insomnia Last Admin: 04/17/23 21:07 Dose: 50 mg Allergies Allergies Allergy/AdvReac Type Severity Reaction Status Date / Time No Known Allergies Allergy Verified 09/18/22 23:01 [No Known Allergies*] Assessment & Plan Assessment & Plan (1) Schizoaffective disorder, depressive type: Status: Acute Code(s): F25.1 - Schizoaffective disorder, depressive type (2) PTSD (post-traumatic stress disorder): Status: Acute Code(s): F43.10 - Post-traumatic stress disorder, unspecified Plan Patient is a 47-year-old male with history of schizoaffective disorder, history of substance abuse in sustained remission, who presents after his sister called crisis for decompensation in the community. Patient reports that he has been struggling more since his mother with whom he was living, was diagnosed with dementia and moved out of the house this past summer. Apparently she was on top of his medications and appointments and since then he has not been taking any medication. He says he feels a mental confusion, with ruminating thoughts and quite a bit of depression; patient reports he has been staying by himself in the house rarely leaving. Patient said that this past week his sister came over to the house, found it in extreme disarray, trash all over the place, rotting food and determined that he was not able to care for himself and so called crisis. Patient however feels that his sister is exaggerating his condition in order to force him out of the house so that the house can be sold. Patient says he has been up for the past 3 days but does not think he is having a manic episode and is not sure if he has ever had one. He said he has had insomnia for years. He agrees he has not been bathing very much and does not know why. He endorses auditory hallucinations that come and go throughout the day; he often sees things out of the corner of his eye, as if someone is there but when he looks there is nothing. Patient denies any recent alcohol abuse, not having had a drink for weeks; he denies drug abuse saying that he has not abused oxycodone her Percocets for weeks; he does smoke cannabis daily. Denies SI or HI Collateral Patient asked check writer to talk with his sister; his sister Anna did call and added that on and he did very well was functional, focused, clear minded with no depression or anxiety. She reports this past August patient had what seems to have been a manic episode, where he was talking fast, saying nonsensical things, paranoid, erratic behavior and grabbed her arm would not like go; however it is not clear the duration of this episode. At that time he also crawled into bed with her and was Caress in her. She reports that this past week he tried to fondle her and rubbed his penis against his 77-year-old aunt. He she says he told police that he still has sexual feelings for his sister Hospital course: 04/17 patient remains ambivalent and hesitant to start medication; he agrees that Abilify would be his likely 1st choice. Acquisition Marketing Manager discussed the cost and benefits of taking Abilify but also of not taking Abilify which would be to remain symptomatic, depressed, confused and struggling to function adequately on his own. Patient complaining of insomnia but refuses medication for it at this time. Plan: CV Q 15 minute checks Add Abilify 5 mg daily; patient thinks he might be willing to take this so will make it available -Discontinue metformin; patient refuses -currently patient refuses ziprasidone -Acquisition Marketing Manager discussed clozapine and lithium with him and printed out literature on benefits/risks/side effects; patient will consider; Reportedly has also done well on Latuda and Abilify in the past though he did develop side effects of tardive dyskinesia and weight gain 04/18: Continue current treatment. Consider titration of Abilify. Reason for continued inpatient stay Substantial Risk for: inability to function and rapid decompensation Time Spent With Patient Time: Total time managing care of this patient today ____ minutes.
[2023-04-18] MEDS: traZODone HCL 50 MG TABLET PO (20:51)
[2023-04-18] MEDS: Melatonin 3 MG TABLET 9 MG PO (20:51)
[2023-04-18 21:00] VITALS: BP 136/85; PULSE 97; TEMP 36.2; O2SAT 97
[2023-04-19 08:15] VITALS: BP 141/77; PULSE 84; RESP 18; TEMP 36.2; O2SAT 97
[2023-04-19] MEDS: Nicotine 14 MG PATCH.TD24 TRANSDERMA (08:25)
[2023-04-19] MEDS: ARIPiprazole 5 MG TABLET PO (08:26)
--- NOTE | 2023-04-19 13:11 | HO.PSYCHPN ---
Subjective Subjective Date of Service: 04/19/23 Reason For Visit: Psychosis Interim History: Patient seen and discussed. Patient was seen and discussed in team. He is oddly related. He is seen in the kitchen area. He what is writing a song. He also had the Bible in front of him. He reports he feels well. He denies side effects of Abilify, however, does not want to increase the dose and became irritable when it was suggested that he do so. He is somewhat guarded. He denies suicidal ideation, and denies hallucinations. Appears preoccupied. Review of Systems Review of Systems Constitutional : No Weight loss, No Fever, No Chills, No Night Sweats, No Fatigue, No Malaise ENT/Mouth : No Hearing loss, No Ear Pain, No Nasal Congestion, No Sinus Pain, No Hoarseness, No sore throat, No Rhinorrhea, No Swallowing Difficulty Eyes: No Eye Pain, No Swelling, No Redness, No Foreign Body, No Discharge, No Vision Changes Cardiovascular : No Chest Pain, No SOB, No Dyspnea on Exertion, No Orthopnea, No Edema, No Palpitations Respiratory : No Cough, No Sputum, No Wheezing, No Smoke Exposure, No Dyspnea Gastrointestinal : No Nausea, No Vomiting, No Diarrhea, No Constipation, No abdominal Pain, No Hematochezia, No Melena Genitourinary : no irregular bleeding, No Dysuria, No Urinary Frequency, No Hematuria, No Urinary Incontinence, No Urgency, No Flank Pain, No Urinary Flow Changes, No Hesitancy Musculoskeletal : No joint pain, No Myalgias, No Joint Swelling Skin : No Skin Lesions, No rash Neuro : No Weakness, No Numbness, No Paresthesias, No Loss of Consciousness, No Dizziness, No Headache Psych : No Anxiety/Panic, No Depression, No SI/HI/AH/VH, No Social Issues, Heme/Lymph: No Bruising, No Bleeding,No Lymphadenopathy Endocrine : No Polyuria, No Polydipsia, No Temperature Intolerance Mental Status Exam Mental Status Exam Narrative: Pt is alert and oriented; behavior is cooperative, friendly and calm; dressed in hospital attire, disheveled but with improved hygiene; mood is described as depressed and affect congruent, downcast; eye contact appropriate; some signs of TD; Speech is a little latent but otherwise normal rate, volume and prosody and not pressured; psychomotor retardation present; thought process is organized and goal directed; Thought content is on housing situation, treatment; possibly some delusional thinking; denies any SI/HI. AH intermittently present; delusions present, thinking he is seeing things out of the corner of his eye; some thought blocking. Patients insight and judgment impaired Diagnostics Vital Signs (24Hr): Vital Signs - 24 hr 04/18/23 21:00 04/19/23 08:15 Temperature 97.2 F 97.2 F Pulse Rate 97 84 Respiratory Rate 18 Blood Pressure 136/85 141/77 H Pulse Oximetry 97 97 Oxygen Delivery Method Room Air Room Air BMI result Body Mass Index 31.8 Labs 04/14/23 20:03 04/14/23 20:03 Medications Medications Current Medications Acetaminophen (Acetaminophen 325 Mg Tablet) 650 mg PO Q6H PRN PRN Reason: Headache/Pain Mild Scale (1-3) Last Admin: 04/17/23 14:13 Dose: 650 mg Al Hydroxide/Mg Hydroxide (Magnesium Hydrox/Alum Hydrox 30 Ml Oral.Susp) 30 ml PO Q6H PRN PRN Reason: Heartburn/Nausea Aripiprazole (Aripiprazole 5 Mg Tablet) 5 mg PO DAILY [facility] Last Admin: 04/19/23 08:26 Dose: 5 mg Hydroxyzine HCl (Hydroxyzine Hcl 25 Mg Tablet) 25 mg PO Q6H PRN PRN Reason: Anxiety Magnesium Hydroxide (Milk Of Magnesia 30 Ml Oral.Susp) 30 ml PO DAILY PRN PRN Reason: Constipation Melatonin (Melatonin 3 Mg Tablet) 9 mg PO BEDTIME [facility] Last Admin: 04/18/23 20:51 Dose: 9 mg Nicotine (Nicotine 14 Mg Patch.Td24) 14 mg TRANSDERMA DAILY [facility] Last Admin: 04/19/23 08:25 Dose: 14 mg Nicotine Polacrilex (Nicotine Polacrilex 2 Mg Gum) 4 mg BUCCAL Q2H PRN PRN Reason: Nicotine Cravings Nicotine Polacrilex (Nicotine Polacrilex 2 Mg Gum) 4 mg BUCCAL Q2H PRN PRN Reason: Nicotine Cravings Olanzapine (Olanzapine 5 Mg Tablet) 5 mg PO TID PRN PRN Reason: agitation Trazodone HCl (Trazodone Hcl 50 Mg Tablet) 50 mg PO BEDTIME MRX1 PRN PRN Reason: Insomnia Last Admin: 04/18/23 20:51 Dose: 50 mg Allergies Allergies Allergy/AdvReac Type Severity Reaction Status Date / Time No Known Allergies Allergy Verified 09/18/22 23:01 [No Known Allergies*] Assessment & Plan Assessment & Plan (1) Schizoaffective disorder, depressive type: Status: Acute Code(s): F25.1 - Schizoaffective disorder, depressive type (2) PTSD (post-traumatic stress disorder): Status: Acute Code(s): F43.10 - Post-traumatic stress disorder, unspecified Plan Patient is a 47-year-old male with history of schizoaffective disorder, history of substance abuse in sustained remission, who presents after his sister called crisis for decompensation in the community. Patient reports that he has been struggling more since his mother with whom he was living, was diagnosed with dementia and moved out of the house this past summer. Apparently she was on top of his medications and appointments and since then he has not been taking any medication. He says he feels a mental confusion, with ruminating thoughts and quite a bit of depression; patient reports he has been staying by himself in the house rarely leaving. Patient said that this past week his sister came over to the house, found it in extreme disarray, trash all over the place, rotting food and determined that he was not able to care for himself and so called crisis. Patient however feels that his sister is exaggerating his condition in order to force him out of the house so that the house can be sold. Patient says he has been up for the past 3 days but does not think he is having a manic episode and is not sure if he has ever had one. He said he has had insomnia for years. He agrees he has not been bathing very much and does not know why. He endorses auditory hallucinations that come and go throughout the day; he often sees things out of the corner of his eye, as if someone is there but when he looks there is nothing. Patient denies any recent alcohol abuse, not having had a drink for weeks; he denies drug abuse saying that he has not abused oxycodone her Percocets for weeks; he does smoke cannabis daily. Denies SI or HI Collateral Patient asked fiction writer to talk with his sister; his sister Anna did call and added that on Lat and he did very well was functional, focused, clear minded with no depression or anxiety. She reports this past August patient had what seems to have been a manic episode, where he was talking fast, saying nonsensical things, paranoid, erratic behavior and grabbed her arm would not like go; however it is not clear the duration of this episode. At that time he also crawled into bed with her and was Caress in her. She reports that this past week he tried to fondle her and rubbed his penis against his 77-year-old aunt. He she says he told police that he still has sexual feelings for his sister Hospital course: 04/17 patient remains ambivalent and hesitant to start medication; he agrees that Abilify would be his likely 1st choice. Court Security Officer discussed the cost and benefits of taking Abilify but also of not taking Abilify which would be to remain symptomatic, depressed, confused and struggling to function adequately on his own. Patient complaining of insomnia but refuses medication for it at this time. Plan: CV Q 15 minute checks Add Abilify 5 mg daily; patient thinks he might be willing to take this so will make it available -Discontinue metformin; patient refuses -currently patient refuses ziprasidone -Court Security Officer discussed clozapine and lithium with him and printed out literature on benefits/risks/side effects; patient will consider; Reportedly has also done well on Latuda and Abilify in the past though he did develop side effects of tardive dyskinesia and weight gain 04/18: Continue current treatment. Consider titration of Abilify. 04/19: refused titration of Abilify Reason for continued inpatient stay Substantial Risk for: inability to function and rapid decompensation Time Spent With Patient Time: Total time managing care of this patient today ____ minutes.
[2023-04-19] MEDS: hydrOXYzine HCL 25 MG TABLET PO (16:44)
[2023-04-19 18:00] VITALS: BP 159/102; PULSE 79; TEMP 36.6; O2SAT 98
[2023-04-19] MEDS: traZODone HCL 50 MG TABLET PO (21:47)
[2023-04-19] MEDS: Melatonin 3 MG TABLET 9 MG PO (21:47)
[2023-04-20] MEDS: ARIPiprazole 5 MG TABLET PO (08:24)
[2023-04-20] MEDS: Nicotine 14 MG PATCH.TD24 TRANSDERMA (08:24)
[2023-04-20 09:18] VITALS: BP 146/86; PULSE 93; TEMP 36.6; O2SAT 97
--- NOTE | 2023-04-20 09:53 | HO.PSYCHPN ---
Subjective Subjective Date of Service: 04/20/23 Reason For Visit: Psychosis Interim History: met with patient; discussed with team; reviewed notes Patient a feeling a little better but still feels confused. Very focused and frustrated with his sisters interventions, saying that he needs someone in his life who is rational and making helpful complements. He complains that his sister is frequently getting angry, yelling, demanding and even interfering; he explains to song writer that during him [facility] meeting his sister got so upset that both other clinicians present had to address her incivility and aggressive tone which he says is not what normal people do.. Because of this, He says he does not feel he can turn to her for help, despite her repeatedly telling him that he is mentally ill and that she is not. Patient said no problems with Abilify that he took this past weekend; agrees to get on long-acting injectable, liking the idea that he does not have to worry about remembering to get pills. Patient is anxious about his housing, since his sister kicked him out of his current house and has put up for sale... Mental Status Exam Mental Status Exam Narrative: Pt is alert and oriented; behavior is cooperative, friendly and calm; dressed in casual attire, adequately groomed with good hygiene; mood is described as depressed and affect congruent, but less downcast; eye contact appropriate; some signs of TD; Speech is a little latent but otherwise normal rate, volume and prosody and not pressured; psychomotor retardation present; thought process is organized and goal directed; Thought content is on housing situation, treatment; possibly some delusional thinking; denies any SI/HI. AH intermittently present; delusions present, thinking he is seeing things out of the corner of his eye; some thought blocking. Patients insight and judgment impaired but improving Diagnostics Vital Signs (24Hr): Vital Signs - 24 hr 04/19/23 18:00 04/20/23 09:18 Temperature 97.9 F 98 F Pulse Rate 79 93 Blood Pressure 159/102 H 146/86 H Pulse Oximetry 98 97 Oxygen Delivery Method Room Air Room Air BMI result Body Mass Index 31.8 Labs 04/14/23 20:03 04/14/23 20:03 Medications Medications Current Medications Acetaminophen (Acetaminophen 325 Mg Tablet) 650 mg PO Q6H PRN PRN Reason: Headache/Pain Mild Scale (1-3) Last Admin: 04/17/23 14:13 Dose: 650 mg Al Hydroxide/Mg Hydroxide (Magnesium Hydrox/Alum Hydrox 30 Ml Oral.Susp) 30 ml PO Q6H PRN PRN Reason: Heartburn/Nausea Aripiprazole (Aripiprazole 5 Mg Tablet) 5 mg PO DAILY [facility] Last Admin: 04/20/23 08:24 Dose: 5 mg Hydroxyzine HCl (Hydroxyzine Hcl 25 Mg Tablet) 25 mg PO Q6H PRN PRN Reason: Anxiety Last Admin: 04/19/23 16:44 Dose: 25 mg Magnesium Hydroxide (Milk Of Magnesia 30 Ml Oral.Susp) 30 ml PO DAILY PRN PRN Reason: Constipation Melatonin (Melatonin 3 Mg Tablet) 9 mg PO BEDTIME [facility] Last Admin: 04/19/23 21:47 Dose: 9 mg Nicotine (Nicotine 14 Mg Patch.Td24) 14 mg TRANSDERMA DAILY [facility] Last Admin: 04/20/23 08:24 Dose: 14 mg Nicotine Polacrilex (Nicotine Polacrilex 2 Mg Gum) 4 mg BUCCAL Q2H PRN PRN Reason: Nicotine Cravings Nicotine Polacrilex (Nicotine Polacrilex 2 Mg Gum) 4 mg BUCCAL Q2H PRN PRN Reason: Nicotine Cravings Olanzapine (Olanzapine 5 Mg Tablet) 5 mg PO TID PRN PRN Reason: agitation Trazodone HCl (Trazodone Hcl 50 Mg Tablet) 50 mg PO BEDTIME MRX1 PRN PRN Reason: Insomnia Last Admin: 04/19/23 21:47 Dose: 50 mg Allergies Allergies Allergy/AdvReac Type Severity Reaction Status Date / Time No Known Allergies Allergy Verified 09/18/22 23:01 [No Known Allergies*] Assessment & Plan Assessment & Plan (1) Schizoaffective disorder, depressive type: Status: Acute Code(s): F25.1 - Schizoaffective disorder, depressive type (2) PTSD (post-traumatic stress disorder): Status: Acute Code(s): F43.10 - Post-traumatic stress disorder, unspecified Plan Patient is a 47-year-old male with history of schizoaffective disorder, history of substance abuse in sustained remission, who presents after his sister called crisis for decompensation in the community. Patient reports that he has been struggling more since his mother with whom he was living, was diagnosed with dementia and moved out of the house this past summer. Apparently she was on top of his medications and appointments and since then he has not been taking any medication. He says he feels a mental confusion, with ruminating thoughts and quite a bit of depression; patient reports he has been staying by himself in the house rarely leaving. Patient said that this past week his sister came over to the house, found it in extreme disarray, trash all over the place, rotting food and determined that he was not able to care for himself and so called crisis. Patient however feels that his sister is exaggerating his condition in order to force him out of the house so that the house can be sold. Patient says he has been up for the past 3 days but does not think he is having a manic episode and is not sure if he has ever had one. He said he has had insomnia for years. He agrees he has not been bathing very much and does not know why. He endorses auditory hallucinations that come and go throughout the day; he often sees things out of the corner of his eye, as if someone is there but when he looks there is nothing. Patient denies any recent alcohol abuse, not having had a drink for weeks; he denies drug abuse saying that he has not abused oxycodone her Percocets for weeks; he does smoke cannabis daily. Denies SI or HI Collateral Patient asked song writer to talk with his sister; his sister Anna did call and added that on Latuda and Abilify he did very well was functional, focused, clear minded with no depression or anxiety. She reports this past August patient had what seems to have been a manic episode, where he was talking fast, saying nonsensical things, paranoid, erratic behavior and grabbed her arm would not like go; however it is not clear the duration of this episode. At that time he also crawled into bed with her and was Caress in her. She reports that this past week he tried to fondle her and rubbed his penis against his 77-year-old aunt. He she says he told police that he still has sexual feelings for his sister Hospital course: Started on Abilify 04/17 patient remains ambivalent and hesitant to start medication; he agrees that Abilify would be his likely 1st choice. Nursing Consultant discussed the cost and benefits of taking Abilify but also of not taking Abilify which would be to remain symptomatic, depressed, confused and struggling to function adequately on his own. Patient complaining of insomnia but refuses medication for it at this time. 04/10 Patient a feeling a little better but still feels confused. Very focused and frustrated with his sisters interventions, saying that he needs someone in his life who is rational and making helpful complements. He complains that his sister is frequently getting angry, yelling, demanding and even interfering; he explains to song writer that during him [facility] meeting his sister got so upset that both other clinicians present had to address her incivility and aggressive tone which he says is not what normal people do.. Because of this, He says he does not feel he can turn to her for help, despite her repeatedly telling him that he is mentally ill and that she is not. Patient said no problems with Abilify that he took this past weekend; agrees to get on long-acting injectable, liking the idea that he does not have to worry about remembering to get pills. Patient is anxious about his housing, since his sister kicked him out of his current house and has put up for sale... -of note, provider, social worker health services and provider covering on the weekend all attest to patient's sister, healthcare proxy, being demanding, belligerent and unable to accept explanations for treatment plan. Today at [facility] meeting sister started to barrier to patient getting outpatient treatment services and was needed to be asked to change her behavior or leave the meeting. Plan: CV Q 15 minute checks Add Abilify 5 mg daily; patient thinks he might be willing to take this so will make it available -Discontinue metformin; patient refuses -currently patient refuses ziprasidone -Nursing Consultant discussed clozapine and lithium with him and printed out literature on benefits/risks/side effects; patient will consider; Reportedly has also done well on Latuda and Abilify in the past though he did develop side effects of tardive dyskinesia and weight gain Patient educated on: diagnosis and medication risk/benefits Informed Consent: understands and further education needed Reason for continued inpatient stay Substantial Risk for: rapid decompensation Time Spent With Patient Time: Total time managing care of this patient today ____ minutes.
[2023-04-20 18:00] VITALS: BP 145/84; PULSE 92; TEMP 36.8; O2SAT 97
[2023-04-20] MEDS: ARIPiprazole ER 400 MG SUSER.SYR IM (21:00)
[2023-04-20] MEDS: traZODone HCL 50 MG TABLET PO (21:13)
[2023-04-20] MEDS: Melatonin 3 MG TABLET 9 MG PO (21:13)
[2023-04-21] MEDS: ARIPiprazole 5 MG TABLET PO (08:26)
[2023-04-21] MEDS: Nicotine 14 MG PATCH.TD24 TRANSDERMA (08:39)
[2023-04-21 09:45] VITALS: BP 135/83; PULSE 93; RESP 18; TEMP 36.3; O2SAT 97
--- NOTE | 2023-04-21 10:30 | P.PNPSI_ITS ---
Subjective Subjective Date of Service: 04/21/23 Reason For Visit: Psychosis Interim History: met with patient; discussed with team Patient remains perseverative on his sister's interference. Received Abinga Larsontena yesterday and agrees to continue with p.o. for now. Had a meeting with [facility] worker who reported that patient started making some inappropriate comments and was invading personal space. Mental Status Exam Mental Status Exam Narrative: Pt is alert and oriented; behavior is cooperative, friendly and calm; dressed in casual attire, adequately groomed with good hygiene; mood is described as ok and affect congruent, brighter, more calm; eye contact appropriate; some signs of TD; Speech is a little latent but otherwise normal rate, volume and prosody and not pressured; no psychomotor present; thought process is organized and goal directed; Thought content is on housing situation, sisters interference, treatment; possibly some delusional thinking; denies any SI/HI. AH intermittently present; delusions present, thinking he is seeing things out of the corner of his eye; some thought blocking. Patients insight and judgment impaired but improving Diagnostics Vital Signs (24Hr): Vital Signs - 24 hr 04/20/23 18:00 Temperature 98.2 F Pulse Rate 92 Blood Pressure 145/84 H Pulse Oximetry 97 Oxygen Delivery Method Room Air BMI result Body Mass Index 31.8 Labs 04/14/23 20:03 04/14/23 20:03 Medications Medications Current Medications Acetaminophen (Acetaminophen 325 Mg Tablet) 650 mg PO Q6H PRN PRN Reason: Headache/Pain Mild Scale (1-3) Last Admin: 04/17/23 14:13 Dose: 650 mg Al Hydroxide/Mg Hydroxide (Magnesium Hydrox/Alum Hydrox 30 Ml Oral.Susp) 30 ml PO Q6H PRN PRN Reason: Heartburn/Nausea Aripiprazole (Aripiprazole 5 Mg Tablet) 5 mg PO DAILY [facility] Last Admin: 04/21/23 08:26 Dose: 5 mg Hydroxyzine HCl (Hydroxyzine Hcl 25 Mg Tablet) 25 mg PO Q6H PRN PRN Reason: Anxiety Last Admin: 04/19/23 16:44 Dose: 25 mg Magnesium Hydroxide (Milk Of Magnesia 30 Ml Oral.Susp) 30 ml PO DAILY PRN PRN Reason: Constipation Melatonin (Melatonin 3 Mg Tablet) 9 mg PO BEDTIME [facility] Last Admin: 09/25/23 21:13 Dose: 9 mg Nicotine (Nicotine 14 Mg Patch.Td24) 14 mg TRANSDERMA DAILY [facility] Last Admin: 04/21/23 08:39 Dose: 14 mg Nicotine Polacrilex (Nicotine Polacrilex 2 Mg Gum) 4 mg BUCCAL Q2H PRN PRN Reason: Nicotine Cravings Nicotine Polacrilex (Nicotine Polacrilex 2 Mg Gum) 4 mg BUCCAL Q2H PRN PRN Reason: Nicotine Cravings Olanzapine (Olanzapine 5 Mg Tablet) 5 mg PO TID PRN PRN Reason: agitation Trazodone HCl (Trazodone Hcl 50 Mg Tablet) 50 mg PO BEDTIME MRX1 PRN PRN Reason: Insomnia Last Admin: 04/20/23 21:13 Dose: 50 mg Allergies Allergies Allergy/AdvReac Type Severity Reaction Status Date / Time No Known Allergies Allergy Verified 09/18/22 23:01 [No Known Allergies*] Assessment & Plan Assessment & Plan (1) Schizoaffective disorder, depressive type: Status: Acute Code(s): F25.1 - Schizoaffective disorder, depressive type (2) PTSD (post-traumatic stress disorder): Status: Acute Code(s): F43.10 - Post-traumatic stress disorder, unspecified Plan Patient is a 47-year-old male with history of schizoaffective disorder, history of substance abuse in sustained remission, who presents after his sister called crisis for decompensation in the community. Patient reports that he has been struggling more since his mother with whom he was living, was diagnosed with dementia and moved out of the house this past summer. Apparently she was on top of his medications and appointments and since then he has not been taking any medication. He says he feels a mental confusion, with ruminating thoughts and quite a bit of depression; patient reports he has been staying by himself in the house rarely leaving. Patient said that this past week his sister came over to the house, found it in extreme disarray, trash all over the place, rotting food and determined that he was not able to care for himself and so called crisis. Patient however feels that his sister is exaggerating his condition in order to force him out of the house so that the house can be sold. Patient says he has been up for the past 3 days but does not think he is having a manic episode and is not sure if he has ever had one. He said he has had insomnia for years. He agrees he has not been bathing very much and does not know why. He endorses auditory hallucinations that come and go throughout the day; he often sees things out of the corner of his eye, as if someone is there but when he looks there is nothing. Patient denies any recent alcohol abuse, not having had a drink for weeks; he denies drug abuse saying that he has not abused oxycodone her Percocets for weeks; he does smoke cannabis daily. Denies SI or HI Collateral Patient asked insurance writer to talk with his sister; his sister Anna did call and added that on Latuda and Abilify he did very well was functional, focused, clear minded with no depression or anxiety. She reports this past August patient had what seems to have been a manic episode, where he was talking fast, saying nonsensical things, paranoid, erratic behavior and grabbed her arm would not like go; however it is not clear the duration of this episode. At that time he also crawled into bed with her and was Caress in her. She reports that this past week he tried to fondle her and rubbed his penis against his 77-year-old aunt. He she says he told police that he still has sexual feelings for his sister Hospital course: Started on Abilify 04/17 patient remains ambivalent and hesitant to start medication; he agrees that Abilify would be his likely 1st choice. Magneto Specialist discussed the cost and benefits of taking Abilify but also of not taking Abilify which would be to remain symptomatic, depressed, confused and struggling to function adequately on his own. Patient complaining of insomnia but refuses medication for it at this time. 04/10 Patient a feeling a little better but still feels confused. Very focused and frustrated with his sisters interventions, saying that he needs someone in his life who is rational and making helpful complements. He complains that his sister is frequently getting angry, yelling, demanding and even interfering; he explains to insurance writer that during him [facility] meeting his sister got so upset that both other clinicians present had to address her incivility and aggressive tone which he says is not what normal people do.. Because of this, He says he does not feel he can turn to her for help, despite her repeatedly telling him that he is mentally ill and that she is not. Patient said no problems with Abilify that he took this past weekend; agrees to get on long-acting injectable, liking the idea that he does not have to worry about remembering to get pills. Patient is anxious about his housing, since his sister kicked him out of his current house and has put up for sale... -of note, provider, social media director and provider covering on the weekend all attest to patient's sister, healthcare proxy, being demanding, belligerent and unable to accept explanations for treatment plan. Today at [facility] meeting sister started to barrier to patient getting outpatient treatment services and was needed to be asked to change her behavior or leave the meeting. 04/21 patient received Abilify Maintena; patient less depressed, social in the milieu; still odd with some delusional thinking, inappropriate towards [facility] worker; did not discuss this with him yet until can get more details Plan: CV Q 15 minute checks Received Abilify Maintena 400 mg 1 time dose on 04/20 Continue Abilify 5 mg daily; will see if patient is willing to increase; PO should overlap Maintena by at least 2 weeks and currently patient is on subtherapeutic p.o. dose -Discontinue metformin; patient refuses -currently patient refuses ziprasidone -Magneto Specialist discussed clozapine and lithium with him and printed out literature on benefits/risks/side effects; patient will consider; Reportedly has also done well on Latuda and Abilify in the past though he did develop side effects of tardive dyskinesia and weight gain Patient educated on: diagnosis and medication risk/benefits Informed Consent: understands and further education needed Reason for continued inpatient stay Substantial Risk for: inability to function and rapid decompensation Time Spent With Patient Time: Total time managing care of this patient today ____ minutes.
[2023-04-21 18:00] VITALS: BP 136/82; PULSE 92; TEMP 36.3; O2SAT 97
[2023-04-21] MEDS: traZODone HCL 50 MG TABLET PO (19:57)
[2023-04-21] MEDS: Melatonin 3 MG TABLET 9 MG PO (19:57)
[2023-04-22 08:39] VITALS: BP 145/86; PULSE 80; RESP 16; TEMP 36.6; O2SAT 97
[2023-04-22] MEDS: ARIPiprazole 5 MG TABLET PO ×2 (08:48→16:21)
[2023-04-22] MEDS: Nicotine 14 MG PATCH.TD24 TRANSDERMA (09:52)
--- NOTE | 2023-04-22 13:46 | HO.PSYCHPN ---
Subjective Subjective Date of Service: 04/22/23 Reason For Visit: Psychosis Interim History: Met with patient; discussed with team; attended [facility] meeting with patient Patient remains confused which he acknowledges; reports having trouble thinking about the various stressful things in his life, his sister, housing, treatment, his mother... Feels that his mind is racing. Trouble falling asleep He was able to complete [facility] paperwork and decided to not sign release of information for sister, feeling particularly confused by her and not sure if he can trust her. Patient and freelance copywriter discussed medication and he agrees to increase p.o. Abilify to 10 mg for now as it is overlapping with the Abilify Catina has; discussed how hopefully this will help bring some clarity to his thinking. Discussed [facility] worker Angy is concern last time about patient being inappropriate; she clarified that patient did not make any inappropriate comments but rather was just getting to physically close to her while looking at paperwork. Mental Status Exam Mental Status Exam Narrative: Pt is alert and oriented; behavior is cooperative, friendly and calm; dressed in hospital attire; a little scruffy with adequate hygiene; mood is described as confused...anxious and affect congruent; eye contact appropriate; some signs of TD; Speech verbose though not pressured; normal rate, volume and prosody; no longer with latency or thought blocking; no psychomotor agitation/retardation present; thought process can be goal directed, but also very circumstantial and patient repeats himself; Thought content is on current struggles, housing sisters interference, treatment; unclear regarding delusional thinking; denies any SI/HI. AH intermittently present. Patients insight and judgment impaired but improving Diagnostics Vital Signs (24Hr): Vital Signs - 24 hr 04/21/23 18:00 04/22/23 08:39 Temperature 97.3 F 97.8 F Pulse Rate 92 80 Respiratory Rate 16 Blood Pressure 136/82 145/86 H Pulse Oximetry 97 97 Oxygen Delivery Method Room Air Room Air BMI result Body Mass Index 31.8 Labs 04/14/23 20:03 04/14/23 20:03 Medications Medications Current Medications Acetaminophen (Acetaminophen 325 Mg Tablet) 650 mg PO Q6H PRN PRN Reason: Headache/Pain Mild Scale (1-3) Last Admin: 04/17/23 14:13 Dose: 650 mg Al Hydroxide/Mg Hydroxide (Magnesium Hydrox/Alum Hydrox 30 Ml Oral.Susp) 30 ml PO Q6H PRN PRN Reason: Heartburn/Nausea Aripiprazole (Aripiprazole 5 Mg Tablet) 5 mg PO DAILY [facility] Last Admin: 04/22/23 08:48 Dose: 5 mg Hydroxyzine HCl (Hydroxyzine Hcl 25 Mg Tablet) 25 mg PO Q6H PRN PRN Reason: Anxiety Last Admin: 04/19/23 16:44 Dose: 25 mg Magnesium Hydroxide (Milk Of Magnesia 30 Ml Oral.Susp) 30 ml PO DAILY PRN PRN Reason: Constipation Melatonin (Melatonin 3 Mg Tablet) 9 mg PO BEDTIME [facility] Last Admin: 04/21/23 19:57 Dose: 9 mg Nicotine (Nicotine 14 Mg Patch.Td24) 14 mg TRANSDERMA DAILY [facility] Last Admin: 04/22/23 09:52 Dose: 14 mg Nicotine Polacrilex (Nicotine Polacrilex 2 Mg Gum) 4 mg BUCCAL Q2H PRN PRN Reason: Nicotine Cravings Nicotine Polacrilex (Nicotine Polacrilex 2 Mg Gum) 4 mg BUCCAL Q2H PRN PRN Reason: Nicotine Cravings Olanzapine (Olanzapine 5 Mg Tablet) 5 mg PO TID PRN PRN Reason: agitation Trazodone HCl (Trazodone Hcl 50 Mg Tablet) 50 mg PO BEDTIME MRX1 PRN PRN Reason: Insomnia Last Admin: 04/21/23 19:57 Dose: 50 mg Allergies Allergies Allergy/AdvReac Type Severity Reaction Status Date / Time No Known Allergies Allergy Verified 09/18/22 23:01 [No Known Allergies*] Assessment & Plan Assessment & Plan (1) Schizoaffective disorder, depressive type: Status: Acute Code(s): F25.1 - Schizoaffective disorder, depressive type (2) PTSD (post-traumatic stress disorder): Status: Acute Code(s): F43.10 - Post-traumatic stress disorder, unspecified Plan Patient is a 47-year-old male with history of schizoaffective disorder, history of substance abuse in sustained remission, who presents after his sister called crisis for decompensation in the community. Patient reports that he has been struggling more since his mother with whom he was living, was diagnosed with dementia and moved out of the house this past summer. Apparently she was on top of his medications and appointments and since then he has not been taking any medication. He says he feels a mental confusion, with ruminating thoughts and quite a bit of depression; patient reports he has been staying by himself in the house rarely leaving. Patient said that this past week his sister came over to the house, found it in extreme disarray, trash all over the place, rotting food and determined that he was not able to care for himself and so called crisis. Patient however feels that his sister is exaggerating his condition in order to force him out of the house so that the house can be sold. Patient says he has been up for the past 3 days but does not think he is having a manic episode and is not sure if he has ever had one. He said he has had insomnia for years. He agrees he has not been bathing very much and does not know why. He endorses auditory hallucinations that come and go throughout the day; he often sees things out of the corner of his eye, as if someone is there but when he looks there is nothing. Patient denies any recent alcohol abuse, not having had a drink for weeks; he denies drug abuse saying that he has not abused oxycodone her Percocets for weeks; he does smoke cannabis daily. Denies SI or HI Collateral Patient asked freelance copywriter to talk with his sister; his sister Anna did call and added that on Latuda and Abilify he did very well was functional, focused, clear minded with no depression or anxiety. She reports this past August patient had what seems to have been a manic episode, where he was talking fast, saying nonsensical things, paranoid, erratic behavior and grabbed her arm would not like go; however it is not clear the duration of this episode. At that time he also crawled into bed with her and was Caress in her. She reports that this past week he tried to fondle her and rubbed his penis against his 77-year-old aunt. He she says he told police that he still has sexual feelings for his sister Hospital course: Started on Abilify 04/17 patient remains ambivalent and hesitant to start medication; he agrees that Abilify would be his likely 1st choice. Metal Expediter discussed the cost and benefits of taking Abilify but also of not taking Abilify which would be to remain symptomatic, depressed, confused and struggling to function adequately on his own. Patient complaining of insomnia but refuses medication for it at this time. 04/10 Patient a feeling a little better but still feels confused. Very focused and frustrated with his sisters interventions, saying that he needs someone in his life who is rational and making helpful complements. He complains that his sister is frequently getting angry, yelling, demanding and even interfering; he explains to freelance copywriter that during him [facility] meeting his sister got so upset that both other clinicians present had to address her incivility and aggressive tone which he says is not what normal people do.. Because of this, He says he does not feel he can turn to her for help, despite her repeatedly telling him that he is mentally ill and that she is not. Patient said no problems with Abilify that he took this past weekend; agrees to get on long-acting injectable, liking the idea that he does not have to worry about remembering to get pills. Patient is anxious about his housing, since his sister kicked him out of his current house and has put up for sale... -of note, provider, elementary school social worker and provider covering on the weekend all attest to patient's sister, healthcare proxy, being demanding, belligerent and unable to accept explanations for treatment plan. Today at [facility] meeting sister started to barrier to patient getting outpatient treatment services and was needed to be asked to change her behavior or leave the meeting. 04/21 patient received Abilify Maintena; patient less depressed, social in the milieu; still odd with some delusional thinking, inappropriate towards [facility] worker; did not discuss this with him yet until can get more details 04/22 still confused and reports having trouble thinking about the various stressful things in his life, his sister, housing, treatment, his mother... Feels that his mind is racing; agrees to increase Abilify p.o. to 10 mg. trouble sleeping and agrees to try clonidine at bedtime Discussed [facility] worker Angy is concern last time about patient being inappropriate; she clarified that patient did not make any inappropriate comments but rather was just getting to physically close to her while looking at paperwork. -of note, patient's sister called [facility] worker hull outfit supervisor and said that she did have a signed release of information for [facility], which she does not have (and they did not release information). Plan: CV Q 15 minute checks Received Abilify Maintena 400 mg 1 time dose on 04/20 Will increase to Abilify 10 mg daily; will see if patient is willing to increase; PO should overlap Maintena by at least 2 weeks Adding clonidine q.h.s. for insomnia Continue trazodone 50 mg q.h.s.; will increase if continued insomnia -Discontinue metformin; patient refuses -currently patient refuses ziprasidone -Metal Expediter discussed clozapine and lithium with him and printed out literature on benefits/risks/side effects; patient will consider; Reportedly has also done well on Latuda and Abilify in the past though he did develop side effects of tardive dyskinesia and weight gain Patient educated on: diagnosis, medication risk/benefits and therapeutic strategies Informed Consent: understands Reason for continued inpatient stay Substantial Risk for: inability to function Time Spent With Patient Time: Total time managing care of this patient today ____ minutes.
[2023-04-22 22:30] VITALS: BP 134/88; PULSE 96; TEMP 35.9; O2SAT 96
[2023-04-22] MEDS: cloNIDine HCL 0.1 MG TABLET PO (22:31)
[2023-04-22] MEDS: traZODone HCL 50 MG TABLET PO (22:31)
[2023-04-22] MEDS: Melatonin 3 MG TABLET 9 MG PO (22:31)
[2023-04-23] MEDS: ARIPiprazole 10 MG TABLET PO (07:57)
[2023-04-23] MEDS: Nicotine 14 MG PATCH.TD24 TRANSDERMA (07:57)
[2023-04-23 08:29] VITALS: BP 136/86; PULSE 90; RESP 16; TEMP 36.5; O2SAT 99
--- NOTE | 2023-04-23 09:37 | HO.PSYCHPN ---
Subjective Subjective Date of Service: 04/23/23 Reason For Visit: Psychosis Interim History: met with patient; discussed with team pt reports he's feeling a little better.... and that depression is less; he shares that he is very anxious however, citing situation with his sister, mother, housing...where is he going to live, will he relapse with alcohol/drugs....Pt says he feels a little more clear minded, but quick to say he is still confused. He denies any AVH but says he saw a strange light that came to him.... Discussed anxiety, but pt does not want any additional medications or med changes. Mental Status Exam Mental Status Exam Narrative: Pt is alert and oriented; behavior is cooperative, friendly and calm; dressed in hospital attire; a little scruffy with adequate hygiene; mood is described as a little better and affect congruent; eye contact appropriate; some signs of TD; Speech verbose though not pressured; normal rate, volume and prosody; no longer with latency or thought blocking; no psychomotor agitation/retardation present; thought process can be goal directed, but also very circumstantial and patient repeats himself; Thought content is on current struggles, housing sisters interference, treatment; unclear regarding delusional thinking; denies any SI/HI. No AH; sometimes brief VH vs illusion; Patients insight and judgment impaired but improving Diagnostics Vital Signs (24Hr): Vital Signs - 24 hr 04/22/23 22:30 04/23/23 08:29 Temperature 96.7 F L 97.7 F Pulse Rate 96 90 Respiratory Rate 16 Blood Pressure 134/88 136/86 Pulse Oximetry 96 99 Oxygen Delivery Method Room Air Room Air BMI result Body Mass Index 31.8 Labs 04/14/23 20:03 04/14/23 20:03 Medications Medications Current Medications Acetaminophen (Acetaminophen 325 Mg Tablet) 650 mg PO Q6H PRN PRN Reason: Headache/Pain Mild Scale (1-3) Last Admin: 04/17/23 14:13 Dose: 650 mg Al Hydroxide/Mg Hydroxide (Magnesium Hydrox/Alum Hydrox 30 Ml Oral.Susp) 30 ml PO Q6H PRN PRN Reason: Heartburn/Nausea Aripiprazole (Aripiprazole 10 Mg Tablet) 10 mg PO DAILY [facility] Last Admin: 04/23/23 07:57 Dose: 10 mg Clonidine HCl (Clonidine Hcl 0.1 Mg Tablet) 0.1 mg PO BEDTIME [facility]; Protocol Last Admin: 04/22/23 22:31 Dose: 0.1 mg Hydroxyzine HCl (Hydroxyzine Hcl 25 Mg Tablet) 25 mg PO Q6H PRN PRN Reason: Anxiety Last Admin: 04/19/23 16:44 Dose: 25 mg Magnesium Hydroxide (Milk Of Magnesia 30 Ml Oral.Susp) 30 ml PO DAILY PRN PRN Reason: Constipation Melatonin (Melatonin 3 Mg Tablet) 9 mg PO BEDTIME [facility] Last Admin: 04/22/23 22:31 Dose: 9 mg Nicotine (Nicotine 14 Mg Patch.Td24) 14 mg TRANSDERMA DAILY [facility] Last Admin: 04/23/23 07:57 Dose: 14 mg Nicotine Polacrilex (Nicotine Polacrilex 2 Mg Gum) 4 mg BUCCAL Q2H PRN PRN Reason: Nicotine Cravings Nicotine Polacrilex (Nicotine Polacrilex 2 Mg Gum) 4 mg BUCCAL Q2H PRN PRN Reason: Nicotine Cravings Olanzapine (Olanzapine 5 Mg Tablet) 5 mg PO TID PRN PRN Reason: agitation Trazodone HCl (Trazodone Hcl 50 Mg Tablet) 50 mg PO BEDTIME MRX1 PRN PRN Reason: Insomnia Last Admin: 04/22/23 22:31 Dose: 50 mg Allergies Allergies Allergy/AdvReac Type Severity Reaction Status Date / Time No Known Allergies Allergy Verified 09/18/22 23:01 [No Known Allergies*] Assessment & Plan Assessment & Plan (1) Schizoaffective disorder, depressive type: Status: Acute Code(s): F25.1 - Schizoaffective disorder, depressive type (2) PTSD (post-traumatic stress disorder): Status: Acute Code(s): F43.10 - Post-traumatic stress disorder, unspecified Plan Patient is a 47-year-old male with history of schizoaffective disorder, history of substance abuse in sustained remission, who presents after his sister called crisis for decompensation in the community. Patient reports that he has been struggling more since his mother with whom he was living, was diagnosed with dementia and moved out of the house this past summer. Apparently she was on top of his medications and appointments and since then he has not been taking any medication. He says he feels a mental confusion, with ruminating thoughts and quite a bit of depression; patient reports he has been staying by himself in the house rarely leaving. Patient said that this past week his sister came over to the house, found it in extreme disarray, trash all over the place, rotting food and determined that he was not able to care for himself and so called crisis. Patient however feels that his sister is exaggerating his condition in order to force him out of the house so that the house can be sold. Patient says he has been up for the past 3 days but does not think he is having a manic episode and is not sure if he has ever had one. He said he has had insomnia for years. He agrees he has not been bathing very much and does not know why. He endorses auditory hallucinations that come and go throughout the day; he often sees things out of the corner of his eye, as if someone is there but when he looks there is nothing. Patient denies any recent alcohol abuse, not having had a drink for weeks; he denies drug abuse saying that he has not abused oxycodone her Percocets for weeks; he does smoke cannabis daily. Denies SI or HI Collateral Patient asked technical proposal writer to talk with his sister; his sister Anna did call and added that on Latuda and Abilify he did very well was functional, focused, clear minded with no depression or anxiety. She reports this past August patient had what seems to have been a manic episode, where he was talking fast, saying nonsensical things, paranoid, erratic behavior and grabbed her arm would not like go; however it is not clear the duration of this episode. At that time he also crawled into bed with her and was Caress in her. She reports that this past week he tried to fondle her and rubbed his penis against his 77-year-old aunt. He she says he told police that he still has sexual feelings for his sister Hospital course: Started on Abilify 04/17 patient remains ambivalent and hesitant to start medication; he agrees that Abilify would be his likely 1st choice. Wooden Boat Builder discussed the cost and benefits of taking Abilify but also of not taking Abilify which would be to remain symptomatic, depressed, confused and struggling to function adequately on his own. Patient complaining of insomnia but refuses medication for it at this time. 04/10 Patient a feeling a little better but still feels confused. Very focused and frustrated with his sisters interventions, saying that he needs someone in his life who is rational and making helpful complements. He complains that his sister is frequently getting angry, yelling, demanding and even interfering; he explains to technical proposal writer that during him [facility] meeting his sister got so upset that both other clinicians present had to address her incivility and aggressive tone which he says is not what normal people do.. Because of this, He says he does not feel he can turn to her for help, despite her repeatedly telling him that he is mentally ill and that she is not. Patient said no problems with Abilify that he took this past weekend; agrees to get on long-acting injectable, liking the idea that he does not have to worry about remembering to get pills. Patient is anxious about his housing, since his sister kicked him out of his current house and has put up for sale... -of note, provider, social media job titles and provider covering on the weekend all attest to patient's sister, healthcare proxy, being demanding, belligerent and unable to accept explanations for treatment plan. Today at [facility] meeting sister started to barrier to patient getting outpatient treatment services and was needed to be asked to change her behavior or leave the meeting. 04/21 patient received Abilify Maintena; patient less depressed, social in the milieu; still odd with some delusional thinking, inappropriate towards [facility] worker; did not discuss this with him yet until can get more details 04/22 still confused and reports having trouble thinking about the various stressful things in his life, his sister, housing, treatment, his mother... Feels that his mind is racing; agrees to increase Abilify p.o. to 10 mg. trouble sleeping and agrees to try clonidine at bedtime Discussed [facility] worker Angy is concern last time about patient being inappropriate; she clarified that patient did not make any inappropriate comments but rather was just getting to physically close to her while looking at paperwork. -of note, patient's sister called [facility] worker supervisor sleeping bag department and said that she did have a signed release of information for [facility], which she does not have (and they did not release information). 04/23 says a little better; still some confused/disorganized thinking; much anxiety; will hold of dx of DULCE until Abilify becomes therapeutic to see if psychotic confusion further clears. Plan: CV Q 15 minute checks Received Abilify Maintena 400 mg 1 time dose on 04/20 Continue Abilify 10 mg daily; will see if patient is willing to increase; PO should overlap Maintena by at least 2 weeks Adding clonidine q.h.s. for insomnia Continue trazodone 50 mg q.h.s.; will increase if continued insomnia -Discontinue metformin; patient refuses -currently patient refuses ziprasidone -Wooden Boat Builder discussed clozapine and lithium with him and printed out literature on benefits/risks/side effects; patient will consider; Reportedly has also done well on Latuda and Abilify in the past though he did develop side effects of tardive dyskinesia and weight gain Patient educated on: diagnosis, medication risk/benefits and therapeutic strategies Informed Consent: understands Reason for continued inpatient stay Substantial Risk for: inability to function Time Spent With Patient Time: Total time managing care of this patient today ____ minutes.
[2023-04-23] MEDS: traZODone HCL 100 MG TABLET PO (20:23)
[2023-04-23] MEDS: Melatonin 3 MG TABLET 9 MG PO (20:23)
[2023-04-23] MEDS: cloNIDine HCL 0.1 MG TABLET PO (20:23)
[2023-04-23 20:34] VITALS: BP 146/85; PULSE 96; TEMP 36.4; O2SAT 100
[2023-04-24 06:00] VITALS: BP 135/75; PULSE 74; RESP 16; TEMP 36.5; O2SAT 99
[2023-04-24] MEDS: Cholecalciferol (Vitamin D3) 10 MCG TABLET PO (08:38)
[2023-04-24] MEDS: ARIPiprazole 10 MG TABLET PO (08:38)
[2023-04-24] MEDS: Nicotine 14 MG PATCH.TD24 TRANSDERMA (08:38)
[2023-04-24] MEDS: Acetaminophen 325 MG TABLET 650 MG PO (08:40)
--- NOTE | 2023-04-24 10:03 | P.PNPSI_ITS ---
Subjective Subjective Date of Service: 04/24/23 Reason For Visit: Psychosis Interim History: met with patient; discussed with team Patient continues to worry very much about various things, his sister, housing. However he does think that he is a little more clear minded. Still struggling with insomnia agrees to increase trazodone to 150 mg Mental Status Exam Mental Status Exam Narrative: Pt is alert and oriented; behavior is cooperative, friendly and calm; dressed in casual attire; a little scruffy with adequate hygiene; mood is described as a little better and affect congruent; eye contact appropriate; some signs of TD; Speech verbose though not pressured; normal rate, volume and prosody; no longer with latency or thought blocking; no psychomotor agitation/retardation present; thought process can be goal directed, but also very circumstantial and patient repeats himself; Thought content is on current struggles, housing sisters interference, treatment; unclear regarding delusional thinking; denies any SI/HI. No AH; sometimes brief VH vs illusion; Patients insight and judgment impaired but improving Diagnostics Vital Signs (24Hr): Vital Signs - 24 hr 04/23/23 20:34 04/24/23 06:00 Temperature 97.5 F 97.7 F Pulse Rate 96 74 Respiratory Rate 16 Blood Pressure 146/85 H 135/75 Pulse Oximetry 100 99 Oxygen Delivery Method Room Air Room Air BMI result Body Mass Index 31.8 Labs 04/14/23 20:03 04/14/23 20:03 Medications Medications Current Medications Acetaminophen (Acetaminophen 325 Mg Tablet) 650 mg PO Q6H PRN PRN Reason: Headache/Pain Mild Scale (1-3) Last Admin: 04/24/23 08:40 Dose: 650 mg Al Hydroxide/Mg Hydroxide (Magnesium Hydrox/Alum Hydrox 30 Ml Oral.Susp) 30 ml PO Q6H PRN PRN Reason: Heartburn/Nausea Aripiprazole (Aripiprazole 10 Mg Tablet) 10 mg PO DAILY RENITA Last Admin: 04/24/23 08:38 Dose: 10 mg Clonidine HCl (Clonidine Hcl 0.1 Mg Tablet) 0.1 mg PO BEDTIME RENITA; Protocol Last Admin: 04/23/23 20:23 Dose: 0.1 mg Hydroxyzine HCl (Hydroxyzine Hcl 25 Mg Tablet) 25 mg PO Q6H PRN PRN Reason: Anxiety Last Admin: 09/24/23 16:44 Dose: 25 mg Magnesium Hydroxide (Milk Of Magnesia 30 Ml Oral.Susp) 30 ml PO DAILY PRN PRN Reason: Constipation Melatonin (Melatonin 3 Mg Tablet) 9 mg PO BEDTIME [facility] Last Admin: 04/23/23 20:23 Dose: 9 mg Nicotine (Nicotine 14 Mg Patch.Td24) 14 mg TRANSDERMA DAILY RENITA Last Admin: 04/24/23 08:38 Dose: 14 mg Nicotine Polacrilex (Nicotine Polacrilex 2 Mg Gum) 4 mg BUCCAL Q2H PRN PRN Reason: Nicotine Cravings Nicotine Polacrilex (Nicotine Polacrilex 2 Mg Gum) 4 mg BUCCAL Q2H PRN PRN Reason: Nicotine Cravings Olanzapine (Olanzapine 5 Mg Tablet) 5 mg PO TID PRN PRN Reason: agitation Trazodone HCl (Trazodone Hcl 50 Mg Tablet) 50 mg PO BEDTIME MRX1 PRN PRN Reason: Insomnia Last Admin: 04/22/23 22:31 Dose: 50 mg Trazodone HCl (Trazodone Hcl 100 Mg Tablet) 100 mg PO BEDTIME RENITA Last Admin: 04/23/23 20:23 Dose: 100 mg Vitamin D (Cholecalciferol (Vitamin D3) 10 Mcg Tablet) 10 mcg PO DAILY [facility] Last Admin: 04/24/23 08:38 Dose: 10 mcg Allergies Allergies Allergy/AdvReac Type Severity Reaction Status Date / Time No Known Allergies Allergy Verified 09/18/22 23:01 [No Known Allergies*] Assessment & Plan Assessment & Plan (1) Schizoaffective disorder, depressive type: Status: Acute Code(s): F25.1 - Schizoaffective disorder, depressive type (2) PTSD (post-traumatic stress disorder): Status: Acute Code(s): F43.10 - Post-traumatic stress disorder, unspecified Plan Patient is a 47-year-old male with history of schizoaffective disorder, history of substance abuse in sustained remission, who presents after his sister called crisis for decompensation in the community. Patient reports that he has been struggling more since his mother with whom he was living, was diagnosed with dementia and moved out of the house this past summer. Apparently she was on top of his medications and appointments and since then he has not been taking any medication. He says he feels a mental confusion, with ruminating thoughts and quite a bit of depression; patient reports he has been staying by himself in the house rarely leaving. Patient said that this past week his sister came over to the house, found it in extreme disarray, trash all over the place, rotting food and determined that he was not able to care for himself and so called crisis. Patient however feels that his sister is exaggerating his condition in order to force him out of the house so that the house can be sold. Patient says he has been up for the past 3 days but does not think he is having a manic episode and is not sure if he has ever had one. He said he has had insomnia for years. He agrees he has not been bathing very much and does not know why. He endorses auditory hallucinations that come and go throughout the day; he often sees things out of the corner of his eye, as if someone is there but when he looks there is nothing. Patient denies any recent alcohol abuse, not having had a drink for weeks; he denies drug abuse saying that he has not abused oxycodone her Percocets for weeks; he does smoke cannabis daily. Denies SI or HI Collateral Patient asked public relations writer to talk with his sister; his sister Anna did call and added that on Latuda and Abilify he did very well was functional, focused, clear minded with no depression or anxiety. She reports this past August patient had what seems to have been a manic episode, where he was talking fast, saying nonsensical things, paranoid, erratic behavior and grabbed her arm would not like go; however it is not clear the duration of this episode. At that time he also crawled into bed with her and was Caress in her. She reports that this past week he tried to fondle her and rubbed his penis against his 77-year-old aunt. He she says he told police that he still has sexual feelings for his sister Hospital course: Started on Abilify 04/17 patient remains ambivalent and hesitant to start medication; he agrees that Abilify would be his likely 1st choice. [address] Magistrate discussed the cost and benefits of taking Abilify but also of not taking Abilify which would be to remain symptomatic, depressed, confused and struggling to function adequately on his own. Patient complaining of insomnia but refuses medication for it at this time. 9/15 Patient a feeling a little better but still feels confused. Very focused and frustrated with his sisters interventions, saying that he needs someone in his life who is rational and making helpful complements. He complains that his sister is frequently getting angry, yelling, demanding and even interfering; he explains to public relations writer that during him [facility] meeting his sister got so upset that both other clinicians present had to address her incivility and aggressive tone which he says is not what normal people do.. Because of this, He says he does not feel he can turn to her for help, despite her repeatedly telling him that he is mentally ill and that she is not. Patient said no problems with Abilify that he took this past weekend; agrees to get on long-acting injectable, liking the idea that he does not have to worry about remembering to get pills. Patient is anxious about his housing, since his sister kicked him out of his current house and has put up for sale... -of note, provider, social service worker and provider covering on the weekend all attest to patient's sister, healthcare proxy, being demanding, belligerent and unable to accept explanations for treatment plan. Today at [facility] meeting sister started to barrier to patient getting outpatient treatment services and was needed to be asked to change her behavior or leave the meeting. 04/21 patient received Abilify Maintena; patient less depressed, social in the milieu; still odd with some delusional thinking, inappropriate towards [facility] worker; did not discuss this with him yet until can get more details 04/22 still confused and reports having trouble thinking about the various stressful things in his life, his sister, housing, treatment, his mother... Feels that his mind is racing; agrees to increase Abilify p.o. to 10 mg. trouble sleeping and agrees to try clonidine at bedtime Discussed [facility] worker Angy is concern last time about patient being inappropriate; she clarified that patient did not make any inappropriate comments but rather was just getting to physically close to her while looking at paperwork. -of note, patient's sister called [facility] worker welding production supervisor and said that she did have a signed release of information for [facility], which she does not have (and they did not release information). 04/23 says a little better; still some confused/disorganized thinking; much anxiety; will hold of dx of DULCE until Abilify becomes therapeutic to see if psychotic confusion further clears. 04/24 seems to be very slowly improving Plan: CV Q 15 minute checks Received Abilify Maintena 400 mg 1 time dose on 04/20 Continue Abilify 10 mg daily; will see if patient is willing to increase; PO should overlap Maintena by at least 2 weeks Adding clonidine q.h.s. for insomnia Continue trazodone 50 mg q.h.s.; will increase if continued insomnia -Discontinue metformin; patient refuses -currently patient refuses ziprasidone -[employer] Magistrate discussed clozapine and lithium with him and printed out literature on benefits/risks/side effects; patient will consider; Reportedly has also done well on Latuda and Abilify in the past though he did develop side effects of tardive dyskinesia and weight gain Patient educated on: diagnosis, medication risk/benefits and therapeutic strategies Informed Consent: understands and further education needed Reason for continued inpatient stay Substantial Risk for: inability to function Time Spent With Patient Time: Total time managing care of this patient today ____ minutes.
[2023-04-24 18:00] VITALS: BP 152/89; PULSE 88; RESP 20; TEMP 37.3; O2SAT 98
[2023-04-24] MEDS: Melatonin 3 MG TABLET 9 MG PO (20:25)
[2023-04-24] MEDS: cloNIDine HCL 0.1 MG TABLET PO (20:25)
[2023-04-24] MEDS: traZODone HCL 50 MG TABLET 150 MG PO (20:25)
[2023-04-25 08:34] VITALS: BP 123/68; PULSE 91; RESP 16; TEMP 36.3; O2SAT 95
[2023-04-25] MEDS: Nicotine 14 MG PATCH.TD24 TRANSDERMA (09:39)
[2023-04-25] MEDS: Cholecalciferol (Vitamin D3) 10 MCG TABLET PO (09:39)
[2023-04-25] MEDS: ARIPiprazole 10 MG TABLET PO (09:39)
--- NOTE | 2023-04-25 11:46 | HO.PSYCHPN ---
Subjective Subjective Date of Service: 04/25/23 Reason For Visit: Psychosis Subjective Notes: Conditional Voluntary Interim History: Pt reports I feel landy. When asked to elaborate, he states I know, something good is going to happen. Pt presents with some delayed in response at times, intense eye contact. He reports he should do a list- organize myself. He asks this designer writer if that is a good idea. He states he wants to take a shower and play guitar. He denies SI/HI. His sleep has been poor. No behavioral concerns. He is taking medications as prescribed. He does not want any med changes at this time. Review of Systems Review of Systems Constitutional : No Weight loss, No Fever, No Chills, No Night Sweats, No Fatigue, No Malaise ENT/Mouth : No Hearing loss, No Ear Pain, No Nasal Congestion, No Sinus Pain, No Hoarseness, No sore throat, No Rhinorrhea, No Swallowing Difficulty Eyes: No Eye Pain, No Swelling, No Redness, No Foreign Body, No Discharge, No Vision Changes Cardiovascular : No Chest Pain, No SOB, No Dyspnea on Exertion, No Orthopnea, No Edema, No Palpitations Respiratory : No Cough, No Sputum, No Wheezing, No Smoke Exposure, No Dyspnea Gastrointestinal : No Nausea, No Vomiting, No Diarrhea, No Constipation, No abdominal Pain, No Hematochezia, No Melena Genitourinary : no irregular bleeding, No Dysuria, No Urinary Frequency, No Hematuria, No Urinary Incontinence, No Urgency, No Flank Pain, No Urinary Flow Changes, No Hesitancy Musculoskeletal : No joint pain, No Myalgias, No Joint Swelling Skin : No Skin Lesions, No rash Neuro : No Weakness, No Numbness, No Paresthesias, No Loss of Consciousness, No Dizziness, No Headache Psych : No Anxiety/Panic, No Depression, No SI/HI/AH/VH, No Social Issues, Heme/Lymph: No Bruising, No Bleeding,No Lymphadenopathy Endocrine : No Polyuria, No Polydipsia, No Temperature Intolerance Mental Status Exam Mental Status Exam Narrative: Pt is alert and oriented; behavior is cooperative, friendly and calm; dressed in casual attire; a little scruffy with adequate hygiene; mood is described as I feel landy and affect constricted, intense eye contact; Speech: with some delayed in response, appears internally preoccupied;no psychomotor agitation/retardation present; thought process can be goal directed, but also very circumstantial and patient repeats himself; Thought content is on current struggles, housing sisters interference, treatment; unclear regarding delusional thinking; denies any SI/HI. No AH; sometimes brief VH vs illusion; Patients insight and judgment impaired but improving Diagnostics Vital Signs (24Hr): Vital Signs - 24 hr 04/24/23 18:00 04/25/23 08:34 Temperature 99.2 F 97.3 F Pulse Rate 88 91 Respiratory Rate 20 16 Blood Pressure 152/89 H 123/68 Pulse Oximetry 98 95 Oxygen Delivery Method Room Air Room Air BMI result Body Mass Index 31.8 Labs 04/14/23 20:03 04/14/23 20:03 Medications Medications Current Medications Acetaminophen (Acetaminophen 325 Mg Tablet) 650 mg PO Q6H PRN PRN Reason: Headache/Pain Mild Scale (1-3) Last Admin: 04/24/23 08:40 Dose: 650 mg Al Hydroxide/Mg Hydroxide (Magnesium Hydrox/Alum Hydrox 30 Ml Oral.Susp) 30 ml PO Q6H PRN PRN Reason: Heartburn/Nausea Aripiprazole (Aripiprazole 10 Mg Tablet) 10 mg PO DAILY RENITA Last Admin: 04/25/23 09:39 Dose: 10 mg Clonidine HCl (Clonidine Hcl 0.1 Mg Tablet) 0.1 mg PO BEDTIME RENITA; Protocol Last Admin: 04/24/23 20:25 Dose: 0.1 mg Hydroxyzine HCl (Hydroxyzine Hcl 25 Mg Tablet) 25 mg PO Q6H PRN PRN Reason: Anxiety Last Admin: 04/19/23 16:44 Dose: 25 mg Magnesium Hydroxide (Milk Of Magnesia 30 Ml Oral.Susp) 30 ml PO DAILY PRN PRN Reason: Constipation Melatonin (Melatonin 3 Mg Tablet) 9 mg PO BEDTIME [facility]ENITA Last Admin: 04/24/23 20:25 Dose: 9 mg Nicotine (Nicotine 14 Mg Patch.Td24) 14 mg TRANSDERMA DAILY [facility]ENITA Last Admin: 04/25/23 09:39 Dose: 14 mg Nicotine Polacrilex (Nicotine Polacrilex 2 Mg Gum) 4 mg BUCCAL Q2H PRN PRN Reason: Nicotine Cravings Nicotine Polacrilex (Nicotine Polacrilex 2 Mg Gum) 4 mg BUCCAL Q2H PRN PRN Reason: Nicotine Cravings Olanzapine (Olanzapine 5 Mg Tablet) 5 mg PO TID PRN PRN Reason: agitation Trazodone HCl (Trazodone Hcl 50 Mg Tablet) 50 mg PO BEDTIME MRX1 PRN PRN Reason: Insomnia Last Admin: 04/22/23 22:31 Dose: 50 mg Trazodone HCl (Trazodone Hcl 50 Mg Tablet) 150 mg PO BEDTIME [facility]ENITA Last Admin: 04/24/23 20:25 Dose: 150 mg Vitamin D (Cholecalciferol (Vitamin D3) 10 Mcg Tablet) 10 mcg PO DAILY RENITA Last Admin: 04/25/23 09:39 Dose: 10 mcg Allergies Allergies Allergy/AdvReac Type Severity Reaction Status Date / Time No Known Allergies Allergy Verified 09/18/22 23:01 [No Known Allergies*] Assessment & Plan Assessment & Plan (1) Schizoaffective disorder, depressive type: Status: Acute Code(s): F25.1 - Schizoaffective disorder, depressive type (2) PTSD (post-traumatic stress disorder): Status: Acute Code(s): F43.10 - Post-traumatic stress disorder, unspecified Plan Patient is a 47-year-old male with history of schizoaffective disorder, history of substance abuse in sustained remission, who presents after his sister called crisis for decompensation in the community. Patient reports that he has been struggling more since his mother with whom he was living, was diagnosed with dementia and moved out of the house this past summer. Apparently she was on top of his medications and appointments and since then he has not been taking any medication. He says he feels a mental confusion, with ruminating thoughts and quite a bit of depression; patient reports he has been staying by himself in the house rarely leaving. Patient said that this past week his sister came over to the house, found it in extreme disarray, trash all over the place, rotting food and determined that he was not able to care for himself and so called crisis. Patient however feels that his sister is exaggerating his condition in order to force him out of the house so that the house can be sold. Patient says he has been up for the past 3 days but does not think he is having a manic episode and is not sure if he has ever had one. He said he has had insomnia for years. He agrees he has not been bathing very much and does not know why. He endorses auditory hallucinations that come and go throughout the day; he often sees things out of the corner of his eye, as if someone is there but when he looks there is nothing. Patient denies any recent alcohol abuse, not having had a drink for weeks; he denies drug abuse saying that he has not abused oxycodone her Percocets for weeks; he does smoke cannabis daily. Denies SI or HI Collateral Patient asked designer writer to talk with his sister; his sister Anna did call and added that on Latuda and Abilify he did very well was functional, focused, clear minded with no depression or anxiety. She reports this past August patient had what seems to have been a manic episode, where he was talking fast, saying nonsensical things, paranoid, erratic behavior and grabbed her arm would not like go; however it is not clear the duration of this episode. At that time he also crawled into bed with her and was Caress in her. She reports that this past week he tried to fondle her and rubbed his penis against his 77-year-old aunt. He she says he told police that he still has sexual feelings for his sister Hospital course: Started on Abilify 04/17 patient remains ambivalent and hesitant to start medication; he agrees that Abilify would be his likely 1st choice. Auto Rental Supervisor discussed the cost and benefits of taking Abilify but also of not taking Abilify which would be to remain symptomatic, depressed, confused and struggling to function adequately on his own. Patient complaining of insomnia but refuses medication for it at this time. 04/10 Patient a feeling a little better but still feels confused. Very focused and frustrated with his sisters interventions, saying that he needs someone in his life who is rational and making helpful complements. He complains that his sister is frequently getting angry, yelling, demanding and even interfering; he explains to designer writer that during him [facility] meeting his sister got so upset that both other clinicians present had to address her incivility and aggressive tone which he says is not what normal people do.. Because of this, He says he does not feel he can turn to her for help, despite her repeatedly telling him that he is mentally ill and that she is not. Patient said no problems with Abilify that he took this past weekend; agrees to get on long-acting injectable, liking the idea that he does not have to worry about remembering to get pills. Patient is anxious about his housing, since his sister kicked him out of his current house and has put up for sale... -of note, provider, social work coordinator and provider covering on the weekend all attest to patient's sister, healthcare proxy, being demanding, belligerent and unable to accept explanations for treatment plan. Today at [facility] meeting sister started to barrier to patient getting outpatient treatment services and was needed to be asked to change her behavior or leave the meeting. 04/21 patient received Abilify Maintena; patient less depressed, social in the milieu; still odd with some delusional thinking, inappropriate towards [facility] worker; did not discuss this with him yet until can get more details 04/22 still confused and reports having trouble thinking about the various stressful things in his life, his sister, housing, treatment, his mother... Feels that his mind is racing; agrees to increase Abilify p.o. to 10 mg. trouble sleeping and agrees to try clonidine at bedtime Discussed [facility] worker Angy is concern last time about patient being inappropriate; she clarified that patient did not make any inappropriate comments but rather was just getting to physically close to her while looking at paperwork. -of note, patient's sister called [facility] worker spring up supervisor and said that she did have a signed release of information for [facility], which she does not have (and they did not release information). 04/23 says a little better; still some confused/disorganized thinking; much anxiety; will hold of dx of DULCE until Abilify becomes therapeutic to see if psychotic confusion further clears. 04/24 seems to be very slowly improving 04/25 constricted, some delayed in response but slightly more aware of his surrounding- attending more to ADLs. no aggression towards self or others. Plan: CV Q 15 minute checks Received Abilify Maintena 400 mg 1 time dose on 04/20 Continue Abilify 10 mg daily; will see if patient is willing to increase; PO should overlap Maintena by at least 2 weeks Adding clonidine q.h.s. for insomnia Continue trazodone 50 mg q.h.s.; will increase if continued insomnia -Discontinue metformin; patient refuses -currently patient refuses ziprasidone -Auto Rental Supervisor discussed clozapine and lithium with him and printed out literature on benefits/risks/side effects; patient will consider; Reportedly has also done well on Latuda and Abilify in the past though he did develop side effects of tardive dyskinesia and weight gain Reason for continued inpatient stay Substantial Risk for: inability to function Time Spent With Patient Time: Total time managing care of this patient today ____ minutes.
[2023-04-25 20:30] VITALS: BP 150/91; PULSE 96; TEMP 35.8
[2023-04-25] MEDS: traZODone HCL 50 MG TABLET 150 MG PO (20:34)
--- NOTE | 2023-04-25 20:34 | PC.NURSE ---
This nurse received a note from staff after coming out of report that pt's sister requested a call back from the charge nurse. No release was signed so this nurse asked pt is he wanted me to speak with his sister and if he wanted to sign a release. Pt stated No. That's weird. I don't see any need for my sister talk to you.
[2023-04-25] MEDS: Melatonin 3 MG TABLET 9 MG PO (20:35)
[2023-04-25] MEDS: cloNIDine HCL 0.1 MG TABLET PO (20:35)
[2023-04-26 08:16] VITALS: BP 136/77; PULSE 73; RESP 16; TEMP 36.6; O2SAT 97
[2023-04-26] MEDS: Nicotine 14 MG PATCH.TD24 TRANSDERMA (09:38)
[2023-04-26] MEDS: Cholecalciferol (Vitamin D3) 10 MCG TABLET PO (09:39)
[2023-04-26] MEDS: ARIPiprazole 10 MG TABLET PO (09:39)
--- NOTE | 2023-04-26 19:20 | HO.PSYCHPN ---
Subjective Subjective Date of Service: 04/26/23 Reason For Visit: Psychosis Subjective Notes: Conditional Voluntary Interim History: Pt with less delayed in response. He reports he was able to take a shower today. He continues to report he worries about his time management. We discussed that as he is less preoccupied (delusions or psychosis decreases) he is able to be more aware of his surrounding and day to day life. Still appears internally preoccupied but less so. No SI/HI. Review of Systems Review of Systems Constitutional : No Weight loss, No Fever, No Chills, No Night Sweats, No Fatigue, No Malaise ENT/Mouth : No Hearing loss, No Ear Pain, No Nasal Congestion, No Sinus Pain, No Hoarseness, No sore throat, No Rhinorrhea, No Swallowing Difficulty Eyes: No Eye Pain, No Swelling, No Redness, No Foreign Body, No Discharge, No Vision Changes Cardiovascular : No Chest Pain, No SOB, No Dyspnea on Exertion, No Orthopnea, No Edema, No Palpitations Respiratory : No Cough, No Sputum, No Wheezing, No Smoke Exposure, No Dyspnea Gastrointestinal : No Nausea, No Vomiting, No Diarrhea, No Constipation, No abdominal Pain, No Hematochezia, No Melena Genitourinary : no irregular bleeding, No Dysuria, No Urinary Frequency, No Hematuria, No Urinary Incontinence, No Urgency, No Flank Pain, No Urinary Flow Changes, No Hesitancy Musculoskeletal : No joint pain, No Myalgias, No Joint Swelling Skin : No Skin Lesions, No rash Neuro : No Weakness, No Numbness, No Paresthesias, No Loss of Consciousness, No Dizziness, No Headache Psych : No Anxiety/Panic, No Depression, No SI/HI/AH/VH, No Social Issues, Heme/Lymph: No Bruising, No Bleeding,No Lymphadenopathy Endocrine : No Polyuria, No Polydipsia, No Temperature Intolerance Mental Status Exam Mental Status Exam Narrative: Pt is alert and oriented; behavior is cooperative, friendly and calm; dressed in casual attire; a little scruffy with adequate hygiene; mood is described as I feel landy and affect constricted, intense eye contact; Speech: with some delayed in response, appears internally preoccupied;no psychomotor agitation/retardation present; thought process can be goal directed, but also very circumstantial and patient repeats himself; Thought content is on current struggles, housing sisters interference, treatment; unclear regarding delusional thinking; denies any SI/HI. No AH; sometimes brief VH vs illusion; Patients insight and judgment impaired but improving Diagnostics Vital Signs (24Hr): Vital Signs - 24 hr 04/25/23 20:30 04/26/23 08:16 Temperature 96.5 F L 97.8 F Pulse Rate 96 73 Respiratory Rate 16 Blood Pressure 150/91 H 136/77 Pulse Oximetry 97 Oxygen Delivery Method Room Air BMI result Body Mass Index 31.8 Labs 04/14/23 20:03 04/14/23 20:03 Medications Medications Current Medications Acetaminophen (Acetaminophen 325 Mg Tablet) 650 mg PO Q6H PRN PRN Reason: Headache/Pain Mild Scale (1-3) Last Admin: 04/24/23 08:40 Dose: 650 mg Al Hydroxide/Mg Hydroxide (Magnesium Hydrox/Alum Hydrox 30 Ml Oral.Susp) 30 ml PO Q6H PRN PRN Reason: Heartburn/Nausea Aripiprazole (Aripiprazole 10 Mg Tablet) 10 mg PO DAILY [facility] Last Admin: 04/26/23 09:39 Dose: 10 mg Clonidine HCl (Clonidine Hcl 0.1 Mg Tablet) 0.1 mg PO BEDTIME [facility]; Protocol Last Admin: 04/25/23 20:35 Dose: 0.1 mg Hydroxyzine HCl (Hydroxyzine Hcl 25 Mg Tablet) 25 mg PO Q6H PRN PRN Reason: Anxiety Last Admin: 04/19/23 16:44 Dose: 25 mg Magnesium Hydroxide (Milk Of Magnesia 30 Ml Oral.Susp) 30 ml PO DAILY PRN PRN Reason: Constipation Melatonin (Melatonin 3 Mg Tablet) 9 mg PO BEDTIME [facility] Last Admin: 04/25/23 20:35 Dose: 9 mg Nicotine (Nicotine 14 Mg Patch.Td24) 14 mg TRANSDERMA DAILY [facility] Last Admin: 04/26/23 09:38 Dose: 14 mg Nicotine Polacrilex (Nicotine Polacrilex 2 Mg Gum) 4 mg BUCCAL Q2H PRN PRN Reason: Nicotine Cravings Nicotine Polacrilex (Nicotine Polacrilex 2 Mg Gum) 4 mg BUCCAL Q2H PRN PRN Reason: Nicotine Cravings Olanzapine (Olanzapine 5 Mg Tablet) 5 mg PO TID PRN PRN Reason: agitation Trazodone HCl (Trazodone Hcl 50 Mg Tablet) 50 mg PO BEDTIME MRX1 PRN PRN Reason: Insomnia Last Admin: 04/22/23 22:31 Dose: 50 mg Trazodone HCl (Trazodone Hcl 50 Mg Tablet) 150 mg PO BEDTIME [facility] Last Admin: 04/25/23 20:34 Dose: 150 mg Vitamin D (Cholecalciferol (Vitamin D3) 10 Mcg Tablet) 10 mcg PO DAILY [facility] Last Admin: 04/26/23 09:39 Dose: 10 mcg Allergies Allergies Allergy/AdvReac Type Severity Reaction Status Date / Time No Known Allergies Allergy Verified 09/18/22 23:01 [No Known Allergies*] Assessment & Plan Assessment & Plan (1) Schizoaffective disorder, depressive type: Status: Acute Code(s): F25.1 - Schizoaffective disorder, depressive type (2) PTSD (post-traumatic stress disorder): Status: Acute Code(s): F43.10 - Post-traumatic stress disorder, unspecified Plan Patient is a 47-year-old male with history of schizoaffective disorder, history of substance abuse in sustained remission, who presents after his sister called crisis for decompensation in the community. Patient reports that he has been struggling more since his mother with whom he was living, was diagnosed with dementia and moved out of the house this past summer. Apparently she was on top of his medications and appointments and since then he has not been taking any medication. He says he feels a mental confusion, with ruminating thoughts and quite a bit of depression; patient reports he has been staying by himself in the house rarely leaving. Patient said that this past week his sister came over to the house, found it in extreme disarray, trash all over the place, rotting food and determined that he was not able to care for himself and so called crisis. Patient however feels that his sister is exaggerating his condition in order to force him out of the house so that the house can be sold. Patient says he has been up for the past 3 days but does not think he is having a manic episode and is not sure if he has ever had one. He said he has had insomnia for years. He agrees he has not been bathing very much and does not know why. He endorses auditory hallucinations that come and go throughout the day; he often sees things out of the corner of his eye, as if someone is there but when he looks there is nothing. Patient denies any recent alcohol abuse, not having had a drink for weeks; he denies drug abuse saying that he has not abused oxycodone her Percocets for weeks; he does smoke cannabis daily. Denies SI or HI Collateral Patient asked real estate underwriter to talk with his sister; his sister Anna did call and added that on Latuda and Abilify he did very well was functional, focused, clear minded with no depression or anxiety. She reports this past August patient had what seems to have been a manic episode, where he was talking fast, saying nonsensical things, paranoid, erratic behavior and grabbed her arm would not like go; however it is not clear the duration of this episode. At that time he also crawled into bed with her and was Caress in her. She reports that this past week he tried to fondle her and rubbed his penis against his 77-year-old aunt. He she says he told police that he still has sexual feelings for his sister Hospital course: Started on Abilify 04/17 patient remains ambivalent and hesitant to start medication; he agrees that Abilify would be his likely 1st choice. High Risk Case Manager discussed the cost and benefits of taking Abilify but also of not taking Abilify which would be to remain symptomatic, depressed, confused and struggling to function adequately on his own. Patient complaining of insomnia but refuses medication for it at this time. 04/10 Patient a feeling a little better but still feels confused. Very focused and frustrated with his sisters interventions, saying that he needs someone in his life who is rational and making helpful complements. He complains that his sister is frequently getting angry, yelling, demanding and even interfering; he explains to real estate underwriter that during him [facility] meeting his sister got so upset that both other clinicians present had to address her incivility and aggressive tone which he says is not what normal people do.. Because of this, He says he does not feel he can turn to her for help, despite her repeatedly telling him that he is mentally ill and that she is not. Patient said no problems with Abilify that he took this past weekend; agrees to get on long-acting injectable, liking the idea that he does not have to worry about remembering to get pills. Patient is anxious about his housing, since his sister kicked him out of his current house and has put up for sale... -of note, provider, social service technician and provider covering on the weekend all attest to patient's sister, healthcare proxy, being demanding, belligerent and unable to accept explanations for treatment plan. Today at [facility] meeting sister started to barrier to patient getting outpatient treatment services and was needed to be asked to change her behavior or leave the meeting. 04/21 patient received Abilify Maintena; patient less depressed, social in the milieu; still odd with some delusional thinking, inappropriate towards [facility] worker; did not discuss this with him yet until can get more details 04/22 still confused and reports having trouble thinking about the various stressful things in his life, his sister, housing, treatment, his mother... Feels that his mind is racing; agrees to increase Abilify p.o. to 10 mg. trouble sleeping and agrees to try clonidine at bedtime Discussed [facility] worker Angy is concern last time about patient being inappropriate; she clarified that patient did not make any inappropriate comments but rather was just getting to physically close to her while looking at paperwork. -of note, patient's sister called [facility] worker school traffic supervisor and said that she did have a signed release of information for [facility], which she does not have (and they did not release information). 04/23 says a little better; still some confused/disorganized thinking; much anxiety; will hold of dx of DULCE until Abilify becomes therapeutic to see if psychotic confusion further clears. 04/24 seems to be very slowly improving 04/25 constricted, some delayed in response but slightly more aware of his surrounding- attending more to ADLs. no aggression towards self or others. 04/26 continue tx. Plan: CV Q 15 minute checks Received Abilify Maintena 400 mg 1 time dose on 04/20 Continue Abilify 10 mg daily; will see if patient is willing to increase; PO should overlap Maintena by at least 2 weeks Adding clonidine q.h.s. for insomnia Continue trazodone 50 mg q.h.s.; will increase if continued insomnia -Discontinue metformin; patient refuses -currently patient refuses ziprasidone -High Risk Case Manager discussed clozapine and lithium with him and printed out literature on benefits/risks/side effects; patient will consider; Reportedly has also done well on Latuda and Abilify in the past though he did develop side effects of tardive dyskinesia and weight gain Reason for continued inpatient stay Substantial Risk for: inability to function Time Spent With Patient Time: Total time managing care of this patient today ____ minutes.
[2023-04-26 22:15] VITALS: BP 143/89; PULSE 94; TEMP 36.7
[2023-04-26] MEDS: Melatonin 3 MG TABLET 9 MG PO (22:16)
[2023-04-26] MEDS: traZODone HCL 50 MG TABLET 150 MG PO (22:16)
[2023-04-26] MEDS: cloNIDine HCL 0.1 MG TABLET PO (22:17)
[2023-04-27] MEDS: hydrOXYzine HCL 25 MG TABLET PO (04:13)
[2023-04-27 08:30] VITALS: BP 149/73; PULSE 84; TEMP 36.2; O2SAT 98
[2023-04-27] MEDS: Nicotine 14 MG PATCH.TD24 TRANSDERMA (08:47)
[2023-04-27] MEDS: Cholecalciferol (Vitamin D3) 10 MCG TABLET PO (08:47)
[2023-04-27] MEDS: ARIPiprazole 10 MG TABLET PO (08:47)
--- NOTE | 2023-04-27 09:15 | P.PNPSI_ITS ---
Subjective Subjective Date of Service: 04/27/23 Reason For Visit: Psychosis Interim History: Met with patient; discussed with team; reviewed notes Patient says that he is overall feeling a little better even though it was stressful over the weekend due to milieu acuity. Says he talk to his sister and she has calmed down and the to did not have any arguments. Discussed disposition and patient is meeting with [facility] tomorrow. He had another plan to go and stay with a former patient on the unit but after discussing this in more detail thought otherwise. Patient still not sleeping very well. Agrees to starting doxepin for anxiety but since it can also help with sleep. Agrees to increasing clonidine as well Mental Status Exam Mental Status Exam Narrative: Pt is alert and oriented; behavior is cooperative, friendly and calm; dressed in casual attire; a little scruffy with adequate hygiene; mood is described as okay and affect constricted; eye contact appropriate; Speech intermittently latent but mostly normal rate, volume and prosody;no psychomotor agitation/retardation present; thought process more goal directed and linear though could still be circumstantial; Thought content is on current struggles, aftercare treatment; no delusional thinking expressed; denies any SI/HI. No AVH; Patients insight and judgment impaired but improving Diagnostics Vital Signs (24Hr): Vital Signs - 24 hr 04/26/23 22:15 Temperature 98.0 F Pulse Rate 94 Blood Pressure 143/89 H BMI result Body Mass Index 31.8 Labs 04/14/23 20:03 04/14/23 20:03 Medications Medications Current Medications Acetaminophen (Acetaminophen 325 Mg Tablet) 650 mg PO Q6H PRN PRN Reason: Headache/Pain Mild Scale (1-3) Last Admin: 04/24/23 08:40 Dose: 650 mg Al Hydroxide/Mg Hydroxide (Magnesium Hydrox/Alum Hydrox 30 Ml Oral.Susp) 30 ml PO Q6H PRN PRN Reason: Heartburn/Nausea Aripiprazole (Aripiprazole 10 Mg Tablet) 10 mg PO DAILY [facility] Last Admin: 04/27/23 08:47 Dose: 10 mg Clonidine HCl (Clonidine Hcl 0.1 Mg Tablet) 0.1 mg PO BEDTIME [facility]ENITA; Protocol Last Admin: 04/26/23 22:17 Dose: 0.1 mg Hydroxyzine HCl (Hydroxyzine Hcl 25 Mg Tablet) 25 mg PO Q6H PRN PRN Reason: Anxiety Last Admin: 04/27/23 04:13 Dose: 25 mg Magnesium Hydroxide (Milk Of Magnesia 30 Ml Oral.Susp) 30 ml PO DAILY PRN PRN Reason: Constipation Melatonin (Melatonin 3 Mg Tablet) 9 mg PO BEDTIME [facility] Last Admin: 04/26/23 22:16 Dose: 9 mg Nicotine (Nicotine 14 Mg Patch.Td24) 14 mg TRANSDERMA DAILY [facility] Last Admin: 04/27/23 08:47 Dose: 14 mg Nicotine Polacrilex (Nicotine Polacrilex 2 Mg Gum) 4 mg BUCCAL Q2H PRN PRN Reason: Nicotine Cravings Nicotine Polacrilex (Nicotine Polacrilex 2 Mg Gum) 4 mg BUCCAL Q2H PRN PRN Reason: Nicotine Cravings Olanzapine (Olanzapine 5 Mg Tablet) 5 mg PO TID PRN PRN Reason: agitation Trazodone HCl (Trazodone Hcl 50 Mg Tablet) 50 mg PO BEDTIME MRX1 PRN PRN Reason: Insomnia Last Admin: 04/22/23 22:31 Dose: 50 mg Trazodone HCl (Trazodone Hcl 50 Mg Tablet) 150 mg PO BEDTIME [facility] Last Admin: 04/26/23 22:16 Dose: 150 mg Vitamin D (Cholecalciferol (Vitamin D3) 10 Mcg Tablet) 10 mcg PO DAILY [facility] Last Admin: 04/27/23 08:47 Dose: 10 mcg Allergies Allergies Allergy/AdvReac Type Severity Reaction Status Date / Time No Known Allergies Allergy Verified 09/18/22 23:01 [No Known Allergies*] Assessment & Plan Assessment & Plan (1) Schizoaffective disorder, depressive type: Status: Acute Code(s): F25.1 - Schizoaffective disorder, depressive type (2) PTSD (post-traumatic stress disorder): Status: Acute Code(s): F43.10 - Post-traumatic stress disorder, unspecified Plan Patient is a 47-year-old male with history of schizoaffective disorder, history of substance abuse in sustained remission, who presents after his sister called crisis for decompensation in the community. Patient reports that he has been struggling more since his mother with whom he was living, was diagnosed with dementia and moved out of the house this past summer. Apparently she was on top of his medications and appointments and since then he has not been taking any medication. He says he feels a mental confusion, with ruminating thoughts and quite a bit of depression; patient reports he has been staying by himself in the house rarely leaving. Patient said that this past week his sister came over to the house, found it in extreme disarray, trash all over the place, rotting food and determined that he was not able to care for himself and so called crisis. Patient however feels that his sister is exaggerating his condition in order to force him out of the house so that the house can be sold. Patient says he has been up for the past 3 days but does not think he is having a manic episode and is not sure if he has ever had one. He said he has had insomnia for years. He agrees he has not been bathing very much and does not know why. He endorses auditory hallucinations that come and go throughout the day; he often sees things out of the corner of his eye, as if someone is there but when he looks there is nothing. Patient denies any recent alcohol abuse, not having had a drink for weeks; he denies drug abuse saying that he has not abused oxycodone her Percocets for weeks; he does smoke cannabis daily. Denies SI or HI Collateral Patient asked creative services writer to talk with his sister; his sister Anna did call and added that on Latuda and Abilify he did very well was functional, focused, clear minded with no depression or anxiety. She reports this past August patient had what seems to have been a manic episode, where he was talking fast, saying nonsensical things, paranoid, erratic behavior and grabbed her arm would not like go; however it is not clear the duration of this episode. At that time he also crawled into bed with her and was Caress in her. She reports that this past week he tried to fondle her and rubbed his penis against his 77-year-old aunt. He she says he told police that he still has sexual feelings for his sister Hospital course: Started on Abilify 04/17 patient remains ambivalent and hesitant to start medication; he agrees that Abilify would be his likely 1st choice. Political Aide discussed the cost and benefits of taking Abilify but also of not taking Abilify which would be to remain symptomatic, depressed, confused and struggling to function adequately on his own. Patient complaining of insomnia but refuses medication for it at this time. 04/10 Patient a feeling a little better but still feels confused. Very focused and frustrated with his sisters interventions, saying that he needs someone in his life who is rational and making helpful complements. He complains that his sister is frequently getting angry, yelling, demanding and even interfering; he explains to creative services writer that during him [facility] meeting his sister got so upset that both other clinicians present had to address her incivility and aggressive tone which he says is not what normal people do.. Because of this, He says he does not feel he can turn to her for help, despite her repeatedly telling him that he is mentally ill and that she is not. Patient said no problems with Abilify that he took this past weekend; agrees to get on long-acting injectable, liking the idea that he does not have to worry about remembering to get pills. Patient is anxious about his housing, since his sister kicked him out of his current house and has put up for sale... -of note, provider, psychosocial rehabilitation counselor and provider covering on the weekend all attest to patient's sister, healthcare proxy, being demanding, belligerent and unable to accept explanations for treatment plan. Today at [facility] meeting sister started to barrier to patient getting outpatient treatment services and was needed to be asked to change her behavior or leave the meeting. 04/21 patient received Abilify Maintena; patient less depressed, social in the milieu; still odd with some delusional thinking, inappropriate towards [facility] worker; did not discuss this with him yet until can get more details 04/22 still confused and reports having trouble thinking about the various stressful things in his life, his sister, housing, treatment, his mother... Feels that his mind is racing; agrees to increase Abilify p.o. to 10 mg. trouble sleeping and agrees to try clonidine at bedtime Discussed [facility] worker Angy is concern last time about patient being inappropriate; she clarified that patient did not make any inappropriate comments but rather was just getting to physically close to her while looking at paperwork. -of note, patient's sister called [facility] worker cutting supervisor and said that she did have a signed release of information for [facility], which she does not have (and they did not release information). 9/28 says a little better; still some confused/disorganized thinking; much anxiety; will hold of dx of DULCE until Abilify becomes therapeutic to see if psychotic confusion further clears. 04/24 seems to be very slowly improving 04/25 constricted, some delayed in response but slightly more aware of his surrounding- attending more to ADLs. no aggression towards self or others. 04/27 continues to improve, seems a little more organized. Will add doxepin for chronic anxiety and worries as well as insomnia; will also increase clonidine to 0.2 mg for continued insomnia Plan: CV Q 15 minute checks Received Abilify Maintena 400 mg 1 time dose on 04/20 Continue Abilify 10 mg daily; will see if patient is willing to increase; PO should overlap Maintena by at least 2 weeks START Doxepin 25mg for anxiety (DULCE?) and insomnia Increase to clonidine 0.2 mg q.h.s. for insomnia Continue trazodone 50 mg q.h.s.; will increase if continued insomnia -Discontinue metformin; patient refuses -currently patient refuses ziprasidone -Political Aide discussed clozapine and lithium with him and printed out literature on benefits/risks/side effects; patient will consider; Reportedly has also done well on Latuda and Abilify in the past though he did develop side effects of tardive dyskinesia and weight gain Patient educated on: diagnosis, medication risk/benefits and therapeutic strategies Informed Consent: understands and further education needed Reason for continued inpatient stay Substantial Risk for: rapid decompensation Time Spent With Patient Time: Total time managing care of this patient today ____ minutes.
[2023-04-27] MEDS: Acetaminophen 325 MG TABLET 650 MG PO (10:22)
[2023-04-27] MEDS: Ibuprofen 600 MG TABLET PO (13:14)
[2023-04-27 18:00] VITALS: BP 165/73; PULSE 78; RESP 16; TEMP 36.2; O2SAT 98
[2023-04-27 20:30] VITALS: BP 149/104; PULSE 114
[2023-04-27] MEDS: Melatonin 3 MG TABLET PO (20:34)
[2023-04-27] MEDS: cloNIDine HCL 0.2 MG TABLET PO (20:34)
[2023-04-27] MEDS: Doxepin HCl 25 MG CAPSULE PO (20:35)
[2023-04-27 22:52] VITALS: BP 179/78; PULSE 72
[2023-04-28 08:03] VITALS: BP 122/76; PULSE 83; RESP 18; TEMP 35.8; O2SAT 99
[2023-04-28] MEDS: ARIPiprazole 10 MG TABLET PO (08:26)
[2023-04-28] MEDS: Nicotine 14 MG PATCH.TD24 TRANSDERMA (08:26)
[2023-04-28] MEDS: Cholecalciferol (Vitamin D3) 10 MCG TABLET PO (08:26)
[2023-04-28 20:10] VITALS: BP 132/81; PULSE 81; TEMP 36.3; O2SAT 98
[2023-04-28] MEDS: Doxepin HCl 25 MG CAPSULE PO (20:19)
[2023-04-28] MEDS: Melatonin 3 MG TABLET PO (20:19)
[2023-04-28] MEDS: cloNIDine HCL 0.2 MG TABLET PO (20:19)
[2023-04-29] MEDS: hydrOXYzine HCL 25 MG TABLET PO (05:18)
[2023-04-29 08:15] VITALS: BP 174/95; PULSE 88; RESP 16; TEMP 36.1; O2SAT 98
[2023-04-29] MEDS: Nicotine 14 MG PATCH.TD24 TRANSDERMA (08:21)
[2023-04-29] MEDS: Cholecalciferol (Vitamin D3) 10 MCG TABLET PO (08:22)
[2023-04-29] MEDS: ARIPiprazole 10 MG TABLET PO (08:22)
--- NOTE | 2023-04-29 09:30 | HO.PSYCHPN ---
Subjective Subjective Date of Service: 04/28/23 Reason For Visit: Psychosis Interim History: Late entry note for patient seen on 04/28; met with patient and discussed in team Patient overall feeling a little better, little more clear minded. Actually slept last night which he is grateful for and says that is helping. Still not sure about housing situation but says his sister was more friendly on the phone. Discussed his anxiety is overall about staying stable and his need for significantly more daytime structure. Mental Status Exam Mental Status Exam Narrative: Pt is alert and oriented; behavior is cooperative, friendly and calm; dressed in casual attire; a little scruffy with adequate hygiene; mood is described as okay and affect constricted; eye contact appropriate; Speech intermittently latent but mostly normal rate, volume and prosody;no psychomotor agitation/retardation present; thought process more goal directed and linear though could still be circumstantial; Thought content is on current struggles, aftercare treatment; no delusional thinking expressed; denies any SI/HI. No AVH; Patients insight and judgment impaired but improving Diagnostics Vital Signs (24Hr): Vital Signs - 24 hr 04/28/23 20:10 04/29/23 08:15 Temperature 97.4 F 96.9 F Pulse Rate 81 88 Respiratory Rate 16 Blood Pressure 132/81 174/95 H Pulse Oximetry 98 98 Oxygen Delivery Method Room Air Room Air BMI result Body Mass Index 31.8 Labs 04/14/23 20:03 04/14/23 20:03 Medications Medications Current Medications Acetaminophen (Acetaminophen 325 Mg Tablet) 650 mg PO Q6H PRN PRN Reason: Headache/Pain Mild Scale (1-3) Last Admin: 04/27/23 10:22 Dose: 650 mg Al Hydroxide/Mg Hydroxide (Magnesium Hydrox/Alum Hydrox 30 Ml Oral.Susp) 30 ml PO Q6H PRN PRN Reason: Heartburn/Nausea Aripiprazole (Aripiprazole 10 Mg Tablet) 10 mg PO DAILY [facility] Last Admin: 04/29/23 08:22 Dose: 10 mg Clonidine HCl (Clonidine Hcl 0.2 Mg Tablet) 0.2 mg PO BEDTIME [facility]; Protocol Last Admin: 04/28/23 20:19 Dose: 0.2 mg Doxepin HCl (Doxepin Hcl 25 Mg Capsule) 25 mg PO BEDTIME [facility] Last Admin: 04/28/23 20:19 Dose: 25 mg Hydroxyzine HCl (Hydroxyzine Hcl 25 Mg Tablet) 25 mg PO Q6H PRN PRN Reason: Anxiety Last Admin: 04/29/23 05:18 Dose: 25 mg Ibuprofen (Ibuprofen 600 Mg Tablet) 600 mg PO Q6H PRN PRN Reason: Pain, Mild (Pain Scale 1-3) Last Admin: 04/27/23 13:14 Dose: 600 mg Magnesium Hydroxide (Milk Of Magnesia 30 Ml Oral.Susp) 30 ml PO DAILY PRN PRN Reason: Constipation Melatonin (Melatonin 3 Mg Tablet) 3 mg PO BEDTIME [facility] Last Admin: 04/28/23 20:19 Dose: 3 mg Nicotine (Nicotine 14 Mg Patch.Td24) 14 mg TRANSDERMA DAILY [facility] Last Admin: 04/29/23 08:21 Dose: 14 mg Nicotine Polacrilex (Nicotine Polacrilex 2 Mg Gum) 4 mg BUCCAL Q2H PRN PRN Reason: Nicotine Cravings Nicotine Polacrilex (Nicotine Polacrilex 2 Mg Gum) 4 mg BUCCAL Q2H PRN PRN Reason: Nicotine Cravings Olanzapine (Olanzapine 5 Mg Tablet) 5 mg PO TID PRN PRN Reason: agitation Vitamin D (Cholecalciferol (Vitamin D3) 10 Mcg Tablet) 10 mcg PO DAILY [facility] Last Admin: 04/29/23 08:22 Dose: 10 mcg Allergies Allergies Allergy/AdvReac Type Severity Reaction Status Date / Time No Known Allergies Allergy Verified 09/18/22 23:01 [No Known Allergies*] Assessment & Plan Assessment & Plan (1) Schizoaffective disorder, depressive type: Status: Acute Code(s): F25.1 - Schizoaffective disorder, depressive type (2) PTSD (post-traumatic stress disorder): Status: Acute Code(s): F43.10 - Post-traumatic stress disorder, unspecified Plan Patient is a 47-year-old male with history of schizoaffective disorder, history of substance abuse in sustained remission, who presents after his sister called crisis for decompensation in the community. Patient reports that he has been struggling more since his mother with whom he was living, was diagnosed with dementia and moved out of the house this past summer. Apparently she was on top of his medications and appointments and since then he has not been taking any medication. He says he feels a mental confusion, with ruminating thoughts and quite a bit of depression; patient reports he has been staying by himself in the house rarely leaving. Patient said that this past week his sister came over to the house, found it in extreme disarray, trash all over the place, rotting food and determined that he was not able to care for himself and so called crisis. Patient however feels that his sister is exaggerating his condition in order to force him out of the house so that the house can be sold. Patient says he has been up for the past 3 days but does not think he is having a manic episode and is not sure if he has ever had one. He said he has had insomnia for years. He agrees he has not been bathing very much and does not know why. He endorses auditory hallucinations that come and go throughout the day; he often sees things out of the corner of his eye, as if someone is there but when he looks there is nothing. Patient denies any recent alcohol abuse, not having had a drink for weeks; he denies drug abuse saying that he has not abused oxycodone her Percocets for weeks; he does smoke cannabis daily. Denies SI or HI Collateral Patient asked marketing copywriter to talk with his sister; his sister Anna did call and added that on Latuda and Abilify he did very well was functional, focused, clear minded with no depression or anxiety. She reports this past August patient had what seems to have been a manic episode, where he was talking fast, saying nonsensical things, paranoid, erratic behavior and grabbed her arm would not like go; however it is not clear the duration of this episode. At that time he also crawled into bed with her and was Caress in her. She reports that this past week he tried to fondle her and rubbed his penis against his 77-year-old aunt. He she says he told police that he still has sexual feelings for his sister Hospital course: Started on Abilify 04/17 patient remains ambivalent and hesitant to start medication; he agrees that Abilify would be his likely 1st choice. Steward/Stewardess Room discussed the cost and benefits of taking Abilify but also of not taking Abilify which would be to remain symptomatic, depressed, confused and struggling to function adequately on his own. Patient complaining of insomnia but refuses medication for it at this time. 04/10 Patient a feeling a little better but still feels confused. Very focused and frustrated with his sisters interventions, saying that he needs someone in his life who is rational and making helpful complements. He complains that his sister is frequently getting angry, yelling, demanding and even interfering; he explains to marketing copywriter that during him [facility] meeting his sister got so upset that both other clinicians present had to address her incivility and aggressive tone which he says is not what normal people do.. Because of this, He says he does not feel he can turn to her for help, despite her repeatedly telling him that he is mentally ill and that she is not. Patient said no problems with Abilify that he took this past weekend; agrees to get on long-acting injectable, liking the idea that he does not have to worry about remembering to get pills. Patient is anxious about his housing, since his sister kicked him out of his current house and has put up for sale... -of note, provider, licensed clinical social worker and provider covering on the weekend all attest to patient's sister, healthcare proxy, being demanding, belligerent and unable to accept explanations for treatment plan. Today at [facility] meeting sister started to barrier to patient getting outpatient treatment services and was needed to be asked to change her behavior or leave the meeting. 04/21 patient received Abilify Maintena; patient less depressed, social in the milieu; still odd with some delusional thinking, inappropriate towards [facility] worker; did not discuss this with him yet until can get more details 04/22 still confused and reports having trouble thinking about the various stressful things in his life, his sister, housing, treatment, his mother... Feels that his mind is racing; agrees to increase Abilify p.o. to 10 mg. trouble sleeping and agrees to try clonidine at bedtime Discussed [facility] worker Angy is concern last time about patient being inappropriate; she clarified that patient did not make any inappropriate comments but rather was just getting to physically close to her while looking at paperwork. -of note, patient's sister called [facility] worker pump service supervisor and said that she did have a signed release of information for [facility], which she does not have (and they did not release information). 04/23 says a little better; still some confused/disorganized thinking; much anxiety; will hold of dx of DULCE until Abilify becomes therapeutic to see if psychotic confusion further clears. 04/24 seems to be very slowly improving 04/25 constricted, some delayed in response but slightly more aware of his surrounding- attending more to ADLs. no aggression towards self or others. 04/27 continues to improve, seems a little more organized. Will add doxepin for chronic anxiety and worries as well as insomnia; will also increase clonidine to 0.2 mg for continued insomnia Plan: CV Q 15 minute checks Received Abilify Maintena 400 mg 1 time dose on 04/20 Continue Abilify 10 mg daily; will see if patient is willing to increase; PO should overlap Maintena by at least 2 weeks START Doxepin 25mg for anxiety (DULCE?) and insomnia Increase to clonidine 0.2 mg q.h.s. for insomnia Continue trazodone 50 mg q.h.s.; will increase if continued insomnia -Discontinue metformin; patient refuses -currently patient refuses ziprasidone -Steward/Stewardess Room discussed clozapine and lithium with him and printed out literature on benefits/risks/side effects; patient will consider; Reportedly has also done well on Latuda and Abilify in the past though he did develop side effects of tardive dyskinesia and weight gain Patient educated on: diagnosis, medication risk/benefits and therapeutic strategies Informed Consent: understands Reason for continued inpatient stay Substantial Risk for: rapid decompensation Time Spent With Patient Time: Total time managing care of this patient today ____ minutes.
--- NOTE | 2023-04-29 09:52 | P.PNPSI_ITS ---
Subjective Subjective Date of Service: 04/29/23 Reason For Visit: Psychosis Interim History: met with patient; discussed with team Patient shares his struggles with planning out his day. He says he would like to shower but feels he does not have enough time since he has to fill out his menu, spend some time and meditation... Patient shares that he has chronic struggles with making and keeping a schedule, that he often gets confused and overwhelmed with decisions. Discussed history and patient says that he was diagnosed with ADHD about 20 years ago and had a trial of Adderall which did not find helpful. Also discussed his history of manic episodes. Regarding medication patient agreed to increase his Abilify to see if that could help with some mental confusion. However he does not want any mood stabilizers despite history of bipolar/schizoaffective. Still having trouble sleeping at night and agrees to increase doxepin. Otherwise he does not want additional medications for this and rather just try to focus on calming himself so that he can relax. Discussed hypertension and ramifications of elevated blood pressures; reviewed with patient blood pressure readings since admission. At this time he does not want to start on an antihypertensive. Discussed disposition options and patient is 1st hope is to get into a respite that a [facility] respite; if that is not an option he will consider either a usp or returning to the house though he is concerned about whether or not he is allowed to Mental Status Exam Mental Status Exam Narrative: Pt is alert and oriented; behavior is cooperative, friendly and calm; dressed in casual attire; a little scruffy with marginal hygiene; mood is described as okay and affect constricted; eye contact appropriate; Speech normal rate, volume and prosody;no psychomotor agitation/retardation present; thought process more goal directed and linear though could still be circumstantial; Thought content is on current struggles, aftercare treatment; no delusional thinking expressed; denies any SI/HI. No AVH; Patients insight and judgment impaired but improved an adequate. Diagnostics Vital Signs (24Hr): Vital Signs - 24 hr 04/28/23 20:10 04/29/23 08:15 Temperature 97.4 F 96.9 F Pulse Rate 81 88 Respiratory Rate 16 Blood Pressure 132/81 174/95 H Pulse Oximetry 98 98 Oxygen Delivery Method Room Air Room Air BMI result Body Mass Index 31.8 Labs 04/14/23 20:03 04/14/23 20:03 Medications Medications Current Medications Acetaminophen (Acetaminophen 325 Mg Tablet) 650 mg PO Q6H PRN PRN Reason: Headache/Pain Mild Scale (1-3) Last Admin: 04/27/23 10:22 Dose: 650 mg Al Hydroxide/Mg Hydroxide (Magnesium Hydrox/Alum Hydrox 30 Ml Oral.Susp) 30 ml PO Q6H PRN PRN Reason: Heartburn/Nausea Aripiprazole (Aripiprazole 10 Mg Tablet) 10 mg PO DAILY [facility] Last Admin: 04/29/23 08:22 Dose: 10 mg Clonidine HCl (Clonidine Hcl 0.2 Mg Tablet) 0.2 mg PO BEDTIME [facility]; Protocol Last Admin: 04/28/23 20:19 Dose: 0.2 mg Doxepin HCl (Doxepin Hcl 25 Mg Capsule) 25 mg PO BEDTIME [facility] Last Admin: 04/28/23 20:19 Dose: 25 mg Hydroxyzine HCl (Hydroxyzine Hcl 25 Mg Tablet) 25 mg PO Q6H PRN PRN Reason: Anxiety Last Admin: 04/29/23 05:18 Dose: 25 mg Ibuprofen (Ibuprofen 600 Mg Tablet) 600 mg PO Q6H PRN PRN Reason: Pain, Mild (Pain Scale 1-3) Last Admin: 04/27/23 13:14 Dose: 600 mg Magnesium Hydroxide (Milk Of Magnesia 30 Ml Oral.Susp) 30 ml PO DAILY PRN PRN Reason: Constipation Melatonin (Melatonin 3 Mg Tablet) 3 mg PO BEDTIME [facility] Last Admin: 04/28/23 20:19 Dose: 3 mg Nicotine (Nicotine 14 Mg Patch.Td24) 14 mg TRANSDERMA DAILY [facility] Last Admin: 04/29/23 08:21 Dose: 14 mg Nicotine Polacrilex (Nicotine Polacrilex 2 Mg Gum) 4 mg BUCCAL Q2H PRN PRN Reason: Nicotine Cravings Nicotine Polacrilex (Nicotine Polacrilex 2 Mg Gum) 4 mg BUCCAL Q2H PRN PRN Reason: Nicotine Cravings Olanzapine (Olanzapine 5 Mg Tablet) 5 mg PO TID PRN PRN Reason: agitation Vitamin D (Cholecalciferol (Vitamin D3) 10 Mcg Tablet) 10 mcg PO DAILY [facility] Last Admin: 04/29/23 08:22 Dose: 10 mcg Allergies Allergies Allergy/AdvReac Type Severity Reaction Status Date / Time No Known Allergies Allergy Verified 09/18/22 23:01 [No Known Allergies*] Assessment & Plan Assessment & Plan (1) Schizoaffective disorder, depressive type: Status: Acute Code(s): F25.1 - Schizoaffective disorder, depressive type (2) PTSD (post-traumatic stress disorder): Status: Acute Code(s): F43.10 - Post-traumatic stress disorder, unspecified Plan Patient is a 47-year-old male with history of schizoaffective disorder, history of substance abuse in sustained remission, who presents after his sister called crisis for decompensation in the community. Patient reports that he has been struggling more since his mother with whom he was living, was diagnosed with dementia and moved out of the house this past summer. Apparently she was on top of his medications and appointments and since then he has not been taking any medication. He says he feels a mental confusion, with ruminating thoughts and quite a bit of depression; patient reports he has been staying by himself in the house rarely leaving. Patient said that this past week his sister came over to the house, found it in extreme disarray, trash all over the place, rotting food and determined that he was not able to care for himself and so called crisis. Patient however feels that his sister is exaggerating his condition in order to force him out of the house so that the house can be sold. Patient says he has been up for the past 3 days but does not think he is having a manic episode and is not sure if he has ever had one. He said he has had insomnia for years. He agrees he has not been bathing very much and does not know why. He endorses auditory hallucinations that come and go throughout the day; he often sees things out of the corner of his eye, as if someone is there but when he looks there is nothing. Patient denies any recent alcohol abuse, not having had a drink for weeks; he denies drug abuse saying that he has not abused oxycodone her Percocets for weeks; he does smoke cannabis daily. Denies SI or HI Collateral Patient asked travel writer to talk with his sister; his sister Anna did call and added that on Lat and he did very well was functional, focused, clear minded with no depression or anxiety. She reports this past August patient had what seems to have been a manic episode, where he was talking fast, saying nonsensical things, paranoid, erratic behavior and grabbed her arm would not like go; however it is not clear the duration of this episode. At that time he also crawled into bed with her and was Caress in her. She reports that this past week he tried to fondle her and rubbed his penis against his 77-year-old aunt. He she says he told police that he still has sexual feelings for his sister Hospital course: Started on Abilify 04/17 patient remains ambivalent and hesitant to start medication; he agrees that Abilify would be his likely 1st choice. Steel Fabricator discussed the cost and benefits of taking Abilify but also of not taking Abilify which would be to remain symptomatic, depressed, confused and struggling to function adequately on his own. Patient complaining of insomnia but refuses medication for it at this time. 04/10 Patient a feeling a little better but still feels confused. Very focused and frustrated with his sisters interventions, saying that he needs someone in his life who is rational and making helpful complements. He complains that his sister is frequently getting angry, yelling, demanding and even interfering; he explains to travel writer that during him [facility] meeting his sister got so upset that both other clinicians present had to address her incivility and aggressive tone which he says is not what normal people do.. Because of this, He says he does not feel he can turn to her for help, despite her repeatedly telling him that he is mentally ill and that she is not. Patient said no problems with Abilify that he took this past weekend; agrees to get on long-acting injectable, liking the idea that he does not have to worry about remembering to get pills. Patient is anxious about his housing, since his sister kicked him out of his current house and has put up for sale... -of note, provider, health care social worker and provider covering on the weekend all attest to patient's sister, healthcare proxy, being demanding, belligerent and unable to accept explanations for treatment plan. Today at [facility] meeting sister started to barrier to patient getting outpatient treatment services and was needed to be asked to change her behavior or leave the meeting. 04/21 patient received Abilify Maintena; patient less depressed, social in the milieu; still odd with some delusional thinking, inappropriate towards [facility] worker; did not discuss this with him yet until can get more details 04/22 still confused and reports having trouble thinking about the various stressful things in his life, his sister, housing, treatment, his mother... Feels that his mind is racing; agrees to increase Abilify p.o. to 10 mg. trouble sleeping and agrees to try clonidine at bedtime Discussed [facility] worker Angy is concern last time about patient being inappropriate; she clarified that patient did not make any inappropriate comments but rather was just getting to physically close to her while looking at paperwork. -of note, patient's sister called [facility] worker anode crew supervisor and said that she did have a signed release of information for [facility], which she does not have (and they did not release information). 04/23 says a little better; still some confused/disorganized thinking; much anxiety; will hold of dx of DULCE until Abilify becomes therapeutic to see if psychotic confusion further clears. 04/24 seems to be very slowly improving 04/25 constricted, some delayed in response but slightly more aware of his surrounding- attending more to ADLs. no aggression towards self or others. 04/27 continues to improve, seems a little more organized. Will add doxepin for chronic anxiety and worries as well as insomnia; will also increase clonidine to 0.2 mg for continued insomnia 04/29 remains much improved however continues to have some mental confusion as well as insomnia, which is likely contributory. Patient cited difficulty finding time in the day to take a shower though there is very little to distract him from ADLs. Will increase Abilify to see if can help with mental confusion as it seems very possible that this confusion is at least partly due to psychotic illness; will increase doxepin for continued anxiety and insomnia Plan: CV Q 15 minute checks Received Abilify Maintena 400 mg 1 time dose on 04/20 Increase to Abilify 15 mg daily; will see if patient is willing to increase; PO should overlap Maintena by at least 2 weeks Increase to Doxepin 50mg for anxiety (DULCE?) and insomnia Continue clonidine 0.2 mg q.h.s. for insomnia Continue trazodone 50 mg q.h.s.; will increase if continued insomnia -Discontinue metformin; patient refuses -patient refused ziprasidone -Steel Fabricator discussed clozapine and lithium with him and printed out literature on benefits/risks/side effects; patient will consider; Reportedly has also done well on Latuda and Abilify in the past though he did develop side effects of tardive dyskinesia and weight gain Patient educated on: diagnosis, medication risk/benefits and therapeutic strategies Informed Consent: understands, does not understand and further education needed Reason for continued inpatient stay Substantial Risk for: rapid decompensation Time Spent With Patient Time: Total time managing care of this patient today ____ minutes.
[2023-04-29] MEDS: ARIPiprazole 5 MG TABLET PO (11:35)
[2023-04-29 21:25] VITALS: BP 139/90; PULSE 80; TEMP 36.3; O2SAT 98
[2023-04-29] MEDS: Doxepin HCl 25 MG CAPSULE 50 MG PO (21:31)
[2023-04-29] MEDS: Melatonin 3 MG TABLET PO (21:31)
[2023-04-29] MEDS: cloNIDine HCL 0.2 MG TABLET PO (21:33)
[2023-04-30 08:00] VITALS: BP 124/77; PULSE 79; RESP 16; TEMP 36.4; O2SAT 98
[2023-04-30] MEDS: ARIPiprazole 15 MG TABLET PO (08:03)
[2023-04-30] MEDS: Nicotine 14 MG PATCH.TD24 TRANSDERMA (08:04)
[2023-04-30] MEDS: Cholecalciferol (Vitamin D3) 10 MCG TABLET PO (08:04)
[2023-04-30] MEDS: hydrOXYzine HCL 25 MG TABLET PO ×2 (08:18→18:49)
--- NOTE | 2023-04-30 12:00 | HO.PSYCHPN ---
Subjective Subjective Date of Service: 04/30/23 Reason For Visit: Psychosis Interim History: met with patient; discussed with team Patient reports that he is okay. Did sleep a little bit last night which he is grateful for. Patient reports he did shower and washes clothes even though he struggles to organize himself. Talked about how distracted he is from trying to complete a task; keno writer discussed mental health diagnosis and how can contribute to this experience. Mental Status Exam Mental Status Exam Narrative: Pt is alert and oriented; behavior is cooperative, friendly and calm; dressed in casual attire; a little scruffy with marginal hygiene; mood is described as okay and affect constricted; eye contact appropriate; Speech normal rate, volume and prosody;no psychomotor agitation/retardation present; thought process more goal directed and linear though could still be circumstantial, can get distracted and be perseverative; Thought content is on current struggles, aftercare treatment; no delusional thinking expressed; denies any SI/HI. No AVH; Patients insight and judgment impaired but improved an adequate. Diagnostics Vital Signs (24Hr): Vital Signs - 24 hr 04/29/23 21:25 04/30/23 08:00 Temperature 97.4 F 97.6 F Pulse Rate 80 79 Respiratory Rate 16 Blood Pressure 139/90 H 124/77 Pulse Oximetry 98 98 Oxygen Delivery Method Room Air Room Air BMI result Body Mass Index 31.8 Labs 04/14/23 20:03 04/14/23 20:03 Medications Medications Current Medications Acetaminophen (Acetaminophen 325 Mg Tablet) 650 mg PO Q6H PRN PRN Reason: Headache/Pain Mild Scale (1-3) Last Admin: 04/27/23 10:22 Dose: 650 mg Al Hydroxide/Mg Hydroxide (Magnesium Hydrox/Alum Hydrox 30 Ml Oral.Susp) 30 ml PO Q6H PRN PRN Reason: Heartburn/Nausea Aripiprazole (Aripiprazole 15 Mg Tablet) 15 mg PO DAILY RENITA Last Admin: 04/30/23 08:03 Dose: 15 mg Clonidine HCl (Clonidine Hcl 0.2 Mg Tablet) 0.2 mg PO BEDTIME RENITA; Protocol Last Admin: 04/29/23 21:33 Dose: 0.2 mg Doxepin HCl (Doxepin Hcl 25 Mg Capsule) 50 mg PO BEDTIME RENITA Last Admin: 04/29/23 21:31 Dose: 50 mg Hydroxyzine HCl (Hydroxyzine Hcl 25 Mg Tablet) 25 mg PO Q6H PRN PRN Reason: Anxiety Last Admin: 04/30/23 08:18 Dose: 25 mg Ibuprofen (Ibuprofen 600 Mg Tablet) 600 mg PO Q6H PRN PRN Reason: Pain, Mild (Pain Scale 1-3) Last Admin: 04/27/23 13:14 Dose: 600 mg Magnesium Hydroxide (Milk Of Magnesia 30 Ml Oral.Susp) 30 ml PO DAILY PRN PRN Reason: Constipation Melatonin (Melatonin 3 Mg Tablet) 3 mg PO BEDTIME [facility] Last Admin: 04/29/23 21:31 Dose: 3 mg Nicotine (Nicotine 14 Mg Patch.Td24) 14 mg TRANSDERMA DAILY [facility] Last Admin: 04/30/23 08:04 Dose: 14 mg Nicotine Polacrilex (Nicotine Polacrilex 2 Mg Gum) 4 mg BUCCAL Q2H PRN PRN Reason: Nicotine Cravings Nicotine Polacrilex (Nicotine Polacrilex 2 Mg Gum) 4 mg BUCCAL Q2H PRN PRN Reason: Nicotine Cravings Vitamin D (Cholecalciferol (Vitamin D3) 10 Mcg Tablet) 10 mcg PO DAILY [facility] Last Admin: 04/30/23 08:04 Dose: 10 mcg Allergies Allergies Allergy/AdvReac Type Severity Reaction Status Date / Time No Known Allergies Allergy Verified 09/18/22 23:01 [No Known Allergies*] Assessment & Plan Assessment & Plan (1) Schizoaffective disorder, depressive type: Status: Acute Code(s): F25.1 - Schizoaffective disorder, depressive type (2) PTSD (post-traumatic stress disorder): Status: Acute Code(s): F43.10 - Post-traumatic stress disorder, unspecified Plan Patient is a 47-year-old male with history of schizoaffective disorder, history of substance abuse in sustained remission, who presents after his sister called crisis for decompensation in the community. Patient reports that he has been struggling more since his mother with whom he was living, was diagnosed with dementia and moved out of the house this past summer. Apparently she was on top of his medications and appointments and since then he has not been taking any medication. He says he feels a mental confusion, with ruminating thoughts and quite a bit of depression; patient reports he has been staying by himself in the house rarely leaving. Patient said that this past week his sister came over to the house, found it in extreme disarray, trash all over the place, rotting food and determined that he was not able to care for himself and so called crisis. Patient however feels that his sister is exaggerating his condition in order to force him out of the house so that the house can be sold. Patient says he has been up for the past 3 days but does not think he is having a manic episode and is not sure if he has ever had one. He said he has had insomnia for years. He agrees he has not been bathing very much and does not know why. He endorses auditory hallucinations that come and go throughout the day; he often sees things out of the corner of his eye, as if someone is there but when he looks there is nothing. Patient denies any recent alcohol abuse, not having had a drink for weeks; he denies drug abuse saying that he has not abused oxycodone her Percocets for weeks; he does smoke cannabis daily. Denies SI or HI Collateral Patient asked keno writer to talk with his sister; his sister Anna did call and added that on Latuda and Abilify he did very well was functional, focused, clear minded with no depression or anxiety. She reports this past August patient had what seems to have been a manic episode, where he was talking fast, saying nonsensical things, paranoid, erratic behavior and grabbed her arm would not like go; however it is not clear the duration of this episode. At that time he also crawled into bed with her and was Caress in her. She reports that this past week he tried to fondle her and rubbed his penis against his 77-year-old aunt. He she says he told police that he still has sexual feelings for his sister Hospital course: Started on Abilify 04/17 patient remains ambivalent and hesitant to start medication; he agrees that Abilify would be his likely 1st choice. Jailer Chief discussed the cost and benefits of taking Abilify but also of not taking Abilify which would be to remain symptomatic, depressed, confused and struggling to function adequately on his own. Patient complaining of insomnia but refuses medication for it at this time. 04/10 Patient a feeling a little better but still feels confused. Very focused and frustrated with his sisters interventions, saying that he needs someone in his life who is rational and making helpful complements. He complains that his sister is frequently getting angry, yelling, demanding and even interfering; he explains to keno writer that during him [facility] meeting his sister got so upset that both other clinicians present had to address her incivility and aggressive tone which he says is not what normal people do.. Because of this, He says he does not feel he can turn to her for help, despite her repeatedly telling him that he is mentally ill and that she is not. Patient said no problems with Abilify that he took this past weekend; agrees to get on long-acting injectable, liking the idea that he does not have to worry about remembering to get pills. Patient is anxious about his housing, since his sister kicked him out of his current house and has put up for sale... -of note, provider, social media intern and provider covering on the weekend all attest to patient's sister, healthcare proxy, being demanding, belligerent and unable to accept explanations for treatment plan. Today at [facility] meeting sister started to barrier to patient getting outpatient treatment services and was needed to be asked to change her behavior or leave the meeting. 04/21 patient received Abilify Maintena; patient less depressed, social in the milieu; still odd with some delusional thinking, inappropriate towards [facility] worker; did not discuss this with him yet until can get more details 04/22 still confused and reports having trouble thinking about the various stressful things in his life, his sister, housing, treatment, his mother... Feels that his mind is racing; agrees to increase Abilify p.o. to 10 mg. trouble sleeping and agrees to try clonidine at bedtime Discussed [facility] worker Angy is concern last time about patient being inappropriate; she clarified that patient did not make any inappropriate comments but rather was just getting to physically close to her while looking at paperwork. -of note, patient's sister called [facility] worker computer analyst supervisor and said that she did have a signed release of information for [facility], which she does not have (and they did not release information). 04/23 says a little better; still some confused/disorganized thinking; much anxiety; will hold of dx of DULCE until Abilify becomes therapeutic to see if psychotic confusion further clears. 04/24 seems to be very slowly improving 04/25 constricted, some delayed in response but slightly more aware of his surrounding- attending more to ADLs. no aggression towards self or others. 04/27 continues to improve, seems a little more organized. Will add doxepin for chronic anxiety and worries as well as insomnia; will also increase clonidine to 0.2 mg for continued insomnia 04/29 remains much improved however continues to have some mental confusion as well as insomnia, which is likely contributory. Patient cited difficulty finding time in the day to take a shower though there is very little to distract him from ADLs. Will increase Abilify to see if can help with mental confusion as it seems very possible that this confusion is at least partly due to psychotic illness; will increase doxepin for continued anxiety and insomnia 04/30 continue current treatment plan Plan: CV Q 15 minute checks Received Abilify Maintena 400 mg 1 time dose on 04/20 Increase to Abilify 15 mg daily; will see if patient is willing to increase; PO should overlap Maintena by at least 2 weeks Increase to Doxepin 50mg for anxiety (DULCE?) and insomnia Continue clonidine 0.2 mg q.h.s. for insomnia Continue trazodone 50 mg q.h.s.; will increase if continued insomnia -Discontinue metformin; patient refuses -patient refused ziprasidone -Jailer Chief discussed clozapine and lithium with him and printed out literature on benefits/risks/side effects; patient will consider; Reportedly has also done well on Latuda and Abilify in the past though he did develop side effects of tardive dyskinesia and weight gain Patient educated on: diagnosis and medication risk/benefits Informed Consent: understands and further education needed Reason for continued inpatient stay Substantial Risk for: stable for discharge Time Spent With Patient Time: Total time managing care of this patient today ____ minutes.
--- NOTE | 2023-04-30 13:59 | PC.NURSE ---
pts sister dejan called to speak with this content writer. she noted concern that a former pt ([facility]) has been calling her mother stating he wants the house to live in and that he has been asking her for money. she notes that he should not be calling her mother. this content writer agreed. however we do not have a patient by that name. she was encouraged to call the police if he does not stop calling. Rupesh made aware to tell SM not to call her anymore and rupesh is aware he is no longer able to visit on the unit. Pt is not showing good judgement in giving out personal information.
[2023-04-30 14:04] VITALS: BMI 32.4
[2023-04-30] MEDS: Ibuprofen 600 MG TABLET PO (15:14)
[2023-04-30 18:00] VITALS: BP 160/85; PULSE 79; TEMP 36.7; O2SAT 98
[2023-04-30] MEDS: cloNIDine HCL 0.2 MG TABLET PO (22:15)
[2023-04-30] MEDS: Doxepin HCl 25 MG CAPSULE 50 MG PO (22:16)
[2023-04-30] MEDS: Melatonin 3 MG TABLET PO (22:16)
[2023-05-01 08:05] VITALS: BP 136/88; PULSE 96; RESP 18; TEMP 36; O2SAT 97
[2023-05-01] MEDS: Cholecalciferol (Vitamin D3) 10 MCG TABLET PO (08:50)
[2023-05-01] MEDS: Ibuprofen 600 MG TABLET PO (08:50)
[2023-05-01] MEDS: Nicotine 14 MG PATCH.TD24 TRANSDERMA (08:51)
--- NOTE | 2023-05-01 09:48 | HO.PSYCHPN ---
Subjective Subjective Date of Service: 05/01/23 Reason For Visit: Psychosis Interim History: met with patient; discussed with team Same presentation, having trouble organizing his thoughts; talked about making a schedule which will try to do. Patient said he feels he is on too many medications and wants to discontinue clonidine. Continues to report that he is not sleeping at all but is hesitant to try medications. Asks if he can be restarted on propranolol for anxiety; he said okay to adding Seroquel for insomnia but not sure if he will take it. He said he is just going to try to help himself sleep by making a card or playing [employer] or meditating Mental Status Exam Mental Status Exam Narrative: Pt is alert and oriented; behavior is cooperative, friendly, though also anxious and distracted; dressed in casual attire; a little scruffy with marginal hygiene; mood is described as okay and affect constricted; eye contact appropriate; Speech normal rate, volume and prosody;no psychomotor agitation/retardation present; thought process more goal directed and linear though could still be circumstantial, can get distracted and be perseverative; Thought content is on current struggles, aftercare treatment; no delusional thinking expressed; denies any SI/HI. No AVH; Patients insight and judgment impaired but improved and adequate. Diagnostics Vital Signs (24Hr): Vital Signs - 24 hr 04/30/23 18:00 Temperature 98.1 F Pulse Rate 79 Blood Pressure 160/85 H Pulse Oximetry 98 Oxygen Delivery Method Room Air BMI result Body Mass Index 32.4 Labs 04/14/23 20:03 04/14/23 20:03 Medications Medications Current Medications Acetaminophen (Acetaminophen 325 Mg Tablet) 650 mg PO Q6H PRN PRN Reason: Headache/Pain Mild Scale (1-3) Last Admin: 04/27/23 10:22 Dose: 650 mg Al Hydroxide/Mg Hydroxide (Magnesium Hydrox/Alum Hydrox 30 Ml Oral.Susp) 30 ml PO Q6H PRN PRN Reason: Heartburn/Nausea Aripiprazole (Aripiprazole 15 Mg Tablet) 15 mg PO DAILY [facility] Last Admin: 05/01/23 08:50 Dose: 15 mg Clonidine HCl (Clonidine Hcl 0.2 Mg Tablet) 0.2 mg PO BEDTIME [facility]ENITA; Protocol Last Admin: 04/30/23 22:15 Dose: 0.2 mg Doxepin HCl (Doxepin Hcl 25 Mg Capsule) 50 mg PO BEDTIME [facility] Last Admin: 04/30/23 22:16 Dose: 50 mg Hydroxyzine HCl (Hydroxyzine Hcl 25 Mg Tablet) 25 mg PO Q6H PRN PRN Reason: Anxiety Last Admin: 04/30/23 18:49 Dose: 25 mg Ibuprofen (Ibuprofen 600 Mg Tablet) 600 mg PO Q6H PRN PRN Reason: Pain, Mild (Pain Scale 1-3) Last Admin: 05/01/23 08:50 Dose: 600 mg Magnesium Hydroxide (Milk Of Magnesia 30 Ml Oral.Susp) 30 ml PO DAILY PRN PRN Reason: Constipation Melatonin (Melatonin 3 Mg Tablet) 3 mg PO BEDTIME [facility] Last Admin: 04/30/23 22:16 Dose: 3 mg Nicotine (Nicotine 14 Mg Patch.Td24) 14 mg TRANSDERMA DAILY [facility] Last Admin: 05/01/23 08:51 Dose: 14 mg Nicotine Polacrilex (Nicotine Polacrilex 2 Mg Gum) 4 mg BUCCAL Q2H PRN PRN Reason: Nicotine Cravings Nicotine Polacrilex (Nicotine Polacrilex 2 Mg Gum) 4 mg BUCCAL Q2H PRN PRN Reason: Nicotine Cravings Vitamin D (Cholecalciferol (Vitamin D3) 10 Mcg Tablet) 10 mcg PO DAILY [facility] Last Admin: 05/01/23 08:50 Dose: 10 mcg Allergies Allergies Allergy/AdvReac Type Severity Reaction Status Date / Time No Known Allergies Allergy Verified 09/18/22 23:01 [No Known Allergies*] Assessment & Plan Assessment & Plan (1) Schizoaffective disorder, depressive type: Status: Acute Code(s): F25.1 - Schizoaffective disorder, depressive type (2) PTSD (post-traumatic stress disorder): Status: Acute Code(s): F43.10 - Post-traumatic stress disorder, unspecified Plan Patient is a 47-year-old male with history of schizoaffective disorder, history of substance abuse in sustained remission, who presents after his sister called crisis for decompensation in the community. Patient reports that he has been struggling more since his mother with whom he was living, was diagnosed with dementia and moved out of the house this past summer. Apparently she was on top of his medications and appointments and since then he has not been taking any medication. He says he feels a mental confusion, with ruminating thoughts and quite a bit of depression; patient reports he has been staying by himself in the house rarely leaving. Patient said that this past week his sister came over to the house, found it in extreme disarray, trash all over the place, rotting food and determined that he was not able to care for himself and so called crisis. Patient however feels that his sister is exaggerating his condition in order to force him out of the house so that the house can be sold. Patient says he has been up for the past 3 days but does not think he is having a manic episode and is not sure if he has ever had one. He said he has had insomnia for years. He agrees he has not been bathing very much and does not know why. He endorses auditory hallucinations that come and go throughout the day; he often sees things out of the corner of his eye, as if someone is there but when he looks there is nothing. Patient denies any recent alcohol abuse, not having had a drink for weeks; he denies drug abuse saying that he has not abused oxycodone her Percocets for weeks; he does smoke cannabis daily. Denies SI or HI Collateral Patient asked contract technical writer to talk with his sister; his sister Anna did call and added that on Latuda and Abilify he did very well was functional, focused, clear minded with no depression or anxiety. She reports this past August patient had what seems to have been a manic episode, where he was talking fast, saying nonsensical things, paranoid, erratic behavior and grabbed her arm would not like go; however it is not clear the duration of this episode. At that time he also crawled into bed with her and was Caress in her. She reports that this past week he tried to fondle her and rubbed his penis against his 77-year-old aunt. He she says he told police that he still has sexual feelings for his sister Hospital course: Started on Abilify 04/17 patient remains ambivalent and hesitant to start medication; he agrees that Abilify would be his likely 1st choice. Machine Stone Polisher Apprentice discussed the cost and benefits of taking Abilify but also of not taking Abilify which would be to remain symptomatic, depressed, confused and struggling to function adequately on his own. Patient complaining of insomnia but refuses medication for it at this time. 04/10 Patient a feeling a little better but still feels confused. Very focused and frustrated with his sisters interventions, saying that he needs someone in his life who is rational and making helpful complements. He complains that his sister is frequently getting angry, yelling, demanding and even interfering; he explains to contract technical writer that during him [facility] meeting his sister got so upset that both other clinicians present had to address her incivility and aggressive tone which he says is not what normal people do.. Because of this, He says he does not feel he can turn to her for help, despite her repeatedly telling him that he is mentally ill and that she is not. Patient said no problems with Abilify that he took this past weekend; agrees to get on long-acting injectable, liking the idea that he does not have to worry about remembering to get pills. Patient is anxious about his housing, since his sister kicked him out of his current house and has put up for sale... -of note, provider, high school social studies teacher and provider covering on the weekend all attest to patient's sister, healthcare proxy, being demanding, belligerent and unable to accept explanations for treatment plan. Today at [facility] meeting sister started to barrier to patient getting outpatient treatment services and was needed to be asked to change her behavior or leave the meeting. 04/21 patient received Abilify Maintena; patient less depressed, social in the milieu; still odd with some delusional thinking, inappropriate towards [facility] worker; did not discuss this with him yet until can get more details 04/22 still confused and reports having trouble thinking about the various stressful things in his life, his sister, housing, treatment, his mother... Feels that his mind is racing; agrees to increase Abilify p.o. to 10 mg. trouble sleeping and agrees to try clonidine at bedtime Discussed [facility] worker Angy is concern last time about patient being inappropriate; she clarified that patient did not make any inappropriate comments but rather was just getting to physically close to her while looking at paperwork. -of note, patient's sister called [facility] worker supervisor aircraft cleaning and said that she did have a signed release of information for [facility], which she does not have (and they did not release information). 04/23 says a little better; still some confused/disorganized thinking; much anxiety; will hold of dx of DULCE until Abilify becomes therapeutic to see if psychotic confusion further clears. 04/24 seems to be very slowly improving 04/25 constricted, some delayed in response but slightly more aware of his surrounding- attending more to ADLs. no aggression towards self or others. 04/27 continues to improve, seems a little more organized. Will add doxepin for chronic anxiety and worries as well as insomnia; will also increase clonidine to 0.2 mg for continued insomnia 04/29 remains much improved however continues to have some mental confusion as well as insomnia, which is likely contributory. Patient cited difficulty finding time in the day to take a shower though there is very little to distract him from ADLs. Will increase Abilify to see if can help with mental confusion as it seems very possible that this confusion is at least partly due to psychotic illness; will increase doxepin for continued anxiety and insomnia 04/30 continue current treatment plan 05/01 discontinue clonidine and added propranolol p.r.n. for anxiety at patient's request; patient complains of insomnia but ambivalent about medication. Said okay to a adding Seroquel but not sure if he will take it. Discussed Ambien however patient has a history of sleep walking; mirtazapine not helpful Plan: CV Q 15 minute checks Received Abilify Maintena 400 mg 1 time dose on 04/20 Continue Abilify 15 mg daily; will see if patient is willing to increase; PO should overlap Maintena by at least 2 weeks Continue Doxepin 50mg for anxiety (DULCE?) and insomnia Added propranolol 5 mg t.i.d. p.r.n. for anxiety Added Seroquel 50 mg q.h.s. for insomnia Continue trazodone 50 mg q.h.s.; will increase if continued insomnia -Discontinue metformin; patient refuses -patient refused ziprasidone Discontinue clonidine not helping and no longer wants -Machine Stone Polisher Apprentice discussed clozapine and lithium with him and printed out literature on benefits/risks/side effects; patient will consider; Reportedly has also done well on Latuda and Abilify in the past though he did develop side effects of tardive dyskinesia and weight gain Patient educated on: diagnosis and medication risk/benefits Informed Consent: understands and further education needed Reason for continued inpatient stay Substantial Risk for: rapid decompensation Time Spent With Patient Time: Total time managing care of this patient today ____ minutes.
[2023-05-01 16:50] VITALS: BP 123/82; PULSE 101; TEMP 36.3
[2023-05-01] MEDS: Melatonin 3 MG TABLET PO (21:17)
[2023-05-02 06:00] VITALS: BP 133/93; PULSE 88; RESP 16; TEMP 36.3; O2SAT 97
[2023-05-02] MEDS: Nicotine 14 MG PATCH.TD24 TRANSDERMA (08:11)
--- NOTE | 2023-05-02 16:32 | HO.PSYCHPN ---
Subjective Subjective Date of Service: 05/02/23 Reason For Visit: Psychosis Interim History: Pt relaxed in milieu. Did trial Seroquel and states he has no interest in taking this. No current concerns. Walking with a peer at times today Medication Compliance: Yes Side effects from medications: No Attending Groups: Intermittent Review of Systems Acute medical concerns: No Medical Review of Systems: unchanged Mental Status Exam Mental Status Exam Patient Appearance: Appropriate Patient Orientation: Person, Place, Time and Situation Level of Consciousness: Alert Patient Behavior: Talkative and Good Eye Contact Mood Description: Withdrawn Affect Description: Withdrawn Patient Cognition Impaired: No Ability to Follow Directions: Fair Speech Pattern: Spontaneous Speech Memory Description: Intact Hallucinations: None Thought Process: Distracted and Rumination Thought Content: positive for Perseveration Judgement: Fair Diagnostics Vital Signs (24Hr): Vital Signs - 24 hr 05/01/23 16:50 05/02/23 06:00 Temperature 97.3 F 97.4 F Pulse Rate 101 H 88 Respiratory Rate 16 Blood Pressure 123/82 133/93 H Pulse Oximetry 97 Oxygen Delivery Method Room Air BMI result Body Mass Index 32.4 Labs 04/14/23 20:03 04/14/23 20:03 Medications Medications Current Medications Acetaminophen (Acetaminophen 325 Mg Tablet) 650 mg PO Q6H PRN PRN Reason: Headache/Pain Mild Scale (1-3) Last Admin: 04/27/23 10:22 Dose: 650 mg Al Hydroxide/Mg Hydroxide (Magnesium Hydrox/Alum Hydrox 30 Ml Oral.Susp) 30 ml PO Q6H PRN PRN Reason: Heartburn/Nausea Aripiprazole (Aripiprazole 15 Mg Tablet) 15 mg PO DAILY [facility] Last Admin: 05/02/23 08:10 Dose: 15 mg Clonidine HCl (Clonidine Hcl 0.2 Mg Tablet) 0.2 mg PO BEDTIME PRN; Protocol PRN Reason: insomnia Doxepin HCl (Doxepin Hcl 25 Mg Capsule) 50 mg PO BEDTIME RENITA Last Admin: 05/01/23 21:18 Dose: 50 mg Hydroxyzine HCl (Hydroxyzine Hcl 25 Mg Tablet) 25 mg PO Q6H PRN PRN Reason: Anxiety Last Admin: 04/30/23 18:49 Dose: 25 mg Ibuprofen (Ibuprofen 600 Mg Tablet) 600 mg PO Q6H PRN PRN Reason: Pain, Mild (Pain Scale 1-3) Last Admin: 05/01/23 08:50 Dose: 600 mg Magnesium Hydroxide (Milk Of Magnesia 30 Ml Oral.Susp) 30 ml PO DAILY PRN PRN Reason: Constipation Melatonin (Melatonin 3 Mg Tablet) 3 mg PO BEDTIME [facility] Last Admin: 05/01/23 21:17 Dose: 3 mg Nicotine (Nicotine 14 Mg Patch.Td24) 14 mg TRANSDERMA DAILY [facility] Last Admin: 05/02/23 08:11 Dose: 14 mg Nicotine Polacrilex (Nicotine Polacrilex 2 Mg Gum) 4 mg BUCCAL Q2H PRN PRN Reason: Nicotine Cravings Nicotine Polacrilex (Nicotine Polacrilex 2 Mg Gum) 4 mg BUCCAL Q2H PRN PRN Reason: Nicotine Cravings Propranolol HCl (Propranolol Hcl 10 Mg Tablet) 5 mg PO TID PRN; Protocol PRN Reason: anxiety Quetiapine Fumarate (Quetiapine Fumarate 50 Mg Tablet) 50 mg PO BEDTIME [facility] Last Admin: 05/01/23 21:18 Dose: 50 mg Vitamin D (Cholecalciferol (Vitamin D3) 10 Mcg Tablet) 10 mcg PO DAILY [facility] Last Admin: 05/02/23 08:10 Dose: 10 mcg Allergies Allergies Allergy/AdvReac Type Severity Reaction Status Date / Time No Known Allergies Allergy Verified 09/18/22 23:01 [No Known Allergies*] Assessment & Plan Assessment & Plan (1) Schizoaffective disorder, depressive type: Status: Acute Code(s): F25.1 - Schizoaffective disorder, depressive type (2) PTSD (post-traumatic stress disorder): Status: Acute Code(s): F43.10 - Post-traumatic stress disorder, unspecified Plan Patient is a 47-year-old male with history of schizoaffective disorder, history of substance abuse in sustained remission, who presents after his sister called crisis for decompensation in the community. Patient reports that he has been struggling more since his mother with whom he was living, was diagnosed with dementia and moved out of the house this past summer. Apparently she was on top of his medications and appointments and since then he has not been taking any medication. He says he feels a mental confusion, with ruminating thoughts and quite a bit of depression; patient reports he has been staying by himself in the house rarely leaving. Patient said that this past week his sister came over to the house, found it in extreme disarray, trash all over the place, rotting food and determined that he was not able to care for himself and so called crisis. Patient however feels that his sister is exaggerating his condition in order to force him out of the house so that the house can be sold. Patient says he has been up for the past 3 days but does not think he is having a manic episode and is not sure if he has ever had one. He said he has had insomnia for years. He agrees he has not been bathing very much and does not know why. He endorses auditory hallucinations that come and go throughout the day; he often sees things out of the corner of his eye, as if someone is there but when he looks there is nothing. Patient denies any recent alcohol abuse, not having had a drink for weeks; he denies drug abuse saying that he has not abused oxycodone her Percocets for weeks; he does smoke cannabis daily. Denies SI or HI Collateral Patient asked group underwriter to talk with his sister; his sister Anna did call and added that on Latuda and Abilify he did very well was functional, focused, clear minded with no depression or anxiety. She reports this past August patient had what seems to have been a manic episode, where he was talking fast, saying nonsensical things, paranoid, erratic behavior and grabbed her arm would not like go; however it is not clear the duration of this episode. At that time he also crawled into bed with her and was Caress in her. She reports that this past week he tried to fondle her and rubbed his penis against his 77-year-old aunt. He she says he told police that he still has sexual feelings for his sister Hospital course: Started on Abilify 04/17 patient remains ambivalent and hesitant to start medication; he agrees that Abilify would be his likely 1st choice. Acute Care Nursing Assistant discussed the cost and benefits of taking Abilify but also of not taking Abilify which would be to remain symptomatic, depressed, confused and struggling to function adequately on his own. Patient complaining of insomnia but refuses medication for it at this time. 04/10 Patient a feeling a little better but still feels confused. Very focused and frustrated with his sisters interventions, saying that he needs someone in his life who is rational and making helpful complements. He complains that his sister is frequently getting angry, yelling, demanding and even interfering; he explains to group underwriter that during him [facility] meeting his sister got so upset that both other clinicians present had to address her incivility and aggressive tone which he says is not what normal people do.. Because of this, He says he does not feel he can turn to her for help, despite her repeatedly telling him that he is mentally ill and that she is not. Patient said no problems with Abilify that he took this past weekend; agrees to get on long-acting injectable, liking the idea that he does not have to worry about remembering to get pills. Patient is anxious about his housing, since his sister kicked him out of his current house and has put up for sale... -of note, provider, older adult social work specialist and provider covering on the weekend all attest to patient's sister, healthcare proxy, being demanding, belligerent and unable to accept explanations for treatment plan. Today at [facility] meeting sister started to barrier to patient getting outpatient treatment services and was needed to be asked to change her behavior or leave the meeting. 04/21 patient received Abilify Maintena; patient less depressed, social in the milieu; still odd with some delusional thinking, inappropriate towards [facility] worker; did not discuss this with him yet until can get more details 04/22 still confused and reports having trouble thinking about the various stressful things in his life, his sister, housing, treatment, his mother... Feels that his mind is racing; agrees to increase Abilify p.o. to 10 mg. trouble sleeping and agrees to try clonidine at bedtime Discussed [facility] worker Angy is concern last time about patient being inappropriate; she clarified that patient did not make any inappropriate comments but rather was just getting to physically close to her while looking at paperwork. -of note, patient's sister called [facility] worker automatic machines supervisor and said that she did have a signed release of information for [facility], which she does not have (and they did not release information). 04/23 says a little better; still some confused/disorganized thinking; much anxiety; will hold of dx of DULCE until Abilify becomes therapeutic to see if psychotic confusion further clears. 04/24 seems to be very slowly improving 04/25 constricted, some delayed in response but slightly more aware of his surrounding- attending more to ADLs. no aggression towards self or others. 04/27 continues to improve, seems a little more organized. Will add doxepin for chronic anxiety and worries as well as insomnia; will also increase clonidine to 0.2 mg for continued insomnia 04/29 remains much improved however continues to have some mental confusion as well as insomnia, which is likely contributory. Patient cited difficulty finding time in the day to take a shower though there is very little to distract him from ADLs. Will increase Abilify to see if can help with mental confusion as it seems very possible that this confusion is at least partly due to psychotic illness; will increase doxepin for continued anxiety and insomnia 04/30 continue current treatment plan 05/01 discontinue clonidine and added propranolol p.r.n. for anxiety at patient's request; patient complains of insomnia but ambivalent about medication. Said okay to a adding Seroquel but not sure if he will take it. Discussed Ambien however patient has a history of sleep walking; mirtazapine not helpful 05/02 continue tx Plan: CV Q 15 minute checks Received Abilify Maintena 400 mg 1 time dose on 04/20 Continue Abilify 15 mg daily; will see if patient is willing to increase; PO should overlap Maintena by at least 2 weeks Continue Doxepin 50mg for anxiety (DULCE?) and insomnia Added propranolol 5 mg t.i.d. p.r.n. for anxiety Added Seroquel 50 mg q.h.s. for insomnia Continue trazodone 50 mg q.h.s.; will increase if continued insomnia -Discontinue metformin; patient refuses -patient refused ziprasidone Discontinue clonidine not helping and no longer wants -Acute Care Nursing Assistant discussed clozapine and lithium with him and printed out literature on benefits/risks/side effects; patient will consider; Reportedly has also done well on Latuda and Abilify in the past though he did develop side effects of tardive dyskinesia and weight gain Informed Consent: understands Reason for continued inpatient stay Substantial Risk for: rapid decompensation Time Spent With Patient Time: Total time managing care of this patient today ____ minutes.
[2023-05-02 16:49] VITALS: BP 164/85; TEMP 36.7; O2SAT 99
[2023-05-02] MEDS: Melatonin 3 MG TABLET PO (21:51)
[2023-05-03 09:04] VITALS: BP 133/83; PULSE 91; RESP 16; TEMP 35.9; O2SAT 97
[2023-05-03] MEDS: Nicotine 14 MG PATCH.TD24 TRANSDERMA (09:07)
--- NOTE | 2023-05-03 13:38 | HO.PSYCHPN ---
Subjective Subjective Date of Service: 05/03/23 Reason For Visit: Psychosis Interim History: Pt asks to discontinue clonidine and increase melatonin to 6 mg HS. Visable in milieu. No concerns today he reports. Seroquel he will not take he reports. Medication Compliance: Yes Review of Systems Acute medical concerns: No Medical Review of Systems: unchanged Mental Status Exam Mental Status Exam Patient Appearance: Appropriate Patient Orientation: Person, Place, Time and Situation Level of Consciousness: Alert Patient Behavior: Talkative and Good Eye Contact Mood Description: Withdrawn Affect Description: Withdrawn Patient Cognition Impaired: No Ability to Follow Directions: Fair Speech Pattern: Spontaneous Speech Memory Description: Intact Hallucinations: None Thought Process: Distracted and Rumination Thought Content: positive for Perseveration Judgement: Fair Diagnostics Vital Signs (24Hr): Vital Signs - 24 hr 05/02/23 16:49 05/03/23 09:04 Temperature 98.1 F 96.7 F L Pulse Rate 91 Respiratory Rate 16 Blood Pressure 164/85 H 133/83 Pulse Oximetry 99 97 Oxygen Delivery Method Room Air Room Air BMI result Body Mass Index 32.4 Labs 04/14/23 20:03 04/14/23 20:03 Medications Medications Current Medications Acetaminophen (Acetaminophen 325 Mg Tablet) 650 mg PO Q6H PRN PRN Reason: Headache/Pain Mild Scale (1-3) Last Admin: 04/27/23 10:22 Dose: 650 mg Al Hydroxide/Mg Hydroxide (Magnesium Hydrox/Alum Hydrox 30 Ml Oral.Susp) 30 ml PO Q6H PRN PRN Reason: Heartburn/Nausea Aripiprazole (Aripiprazole 15 Mg Tablet) 15 mg PO DAILY [facility] Last Admin: 05/03/23 09:07 Dose: 15 mg Clonidine HCl (Clonidine Hcl 0.2 Mg Tablet) 0.2 mg PO BEDTIME PRN; Protocol PRN Reason: insomnia Doxepin HCl (Doxepin Hcl 25 Mg Capsule) 50 mg PO BEDTIME RENITA Last Admin: 05/02/23 21:50 Dose: 50 mg Hydroxyzine HCl (Hydroxyzine Hcl 25 Mg Tablet) 25 mg PO Q6H PRN PRN Reason: Anxiety Last Admin: 04/30/23 18:49 Dose: 25 mg Ibuprofen (Ibuprofen 600 Mg Tablet) 600 mg PO Q6H PRN PRN Reason: Pain, Mild (Pain Scale 1-3) Last Admin: 05/01/23 08:50 Dose: 600 mg Magnesium Hydroxide (Milk Of Magnesia 30 Ml Oral.Susp) 30 ml PO DAILY PRN PRN Reason: Constipation Melatonin (Melatonin 3 Mg Tablet) 3 mg PO BEDTIME [facility] Last Admin: 05/02/23 21:51 Dose: 3 mg Nicotine (Nicotine 14 Mg Patch.Td24) 14 mg TRANSDERMA DAILY [facility] Last Admin: 05/03/23 09:07 Dose: 14 mg Nicotine Polacrilex (Nicotine Polacrilex 2 Mg Gum) 4 mg BUCCAL Q2H PRN PRN Reason: Nicotine Cravings Nicotine Polacrilex (Nicotine Polacrilex 2 Mg Gum) 4 mg BUCCAL Q2H PRN PRN Reason: Nicotine Cravings Propranolol HCl (Propranolol Hcl 10 Mg Tablet) 5 mg PO TID PRN; Protocol PRN Reason: anxiety Quetiapine Fumarate (Quetiapine Fumarate 50 Mg Tablet) 50 mg PO BEDTIME [facility] Last Admin: 05/02/23 21:53 Dose: Not Given Vitamin D (Cholecalciferol (Vitamin D3) 10 Mcg Tablet) 10 mcg PO DAILY [facility] Last Admin: 05/03/23 09:07 Dose: 10 mcg Allergies Allergies Allergy/AdvReac Type Severity Reaction Status Date / Time No Known Allergies Allergy Verified 09/18/22 23:01 [No Known Allergies*] Assessment & Plan Assessment & Plan (1) Schizoaffective disorder, depressive type: Status: Acute Code(s): F25.1 - Schizoaffective disorder, depressive type (2) PTSD (post-traumatic stress disorder): Status: Acute Code(s): F43.10 - Post-traumatic stress disorder, unspecified Plan Patient is a 47-year-old male with history of schizoaffective disorder, history of substance abuse in sustained remission, who presents after his sister called crisis for decompensation in the community. Patient reports that he has been struggling more since his mother with whom he was living, was diagnosed with dementia and moved out of the house this past summer. Apparently she was on top of his medications and appointments and since then he has not been taking any medication. He says he feels a mental confusion, with ruminating thoughts and quite a bit of depression; patient reports he has been staying by himself in the house rarely leaving. Patient said that this past week his sister came over to the house, found it in extreme disarray, trash all over the place, rotting food and determined that he was not able to care for himself and so called crisis. Patient however feels that his sister is exaggerating his condition in order to force him out of the house so that the house can be sold. Patient says he has been up for the past 3 days but does not think he is having a manic episode and is not sure if he has ever had one. He said he has had insomnia for years. He agrees he has not been bathing very much and does not know why. He endorses auditory hallucinations that come and go throughout the day; he often sees things out of the corner of his eye, as if someone is there but when he looks there is nothing. Patient denies any recent alcohol abuse, not having had a drink for weeks; he denies drug abuse saying that he has not abused oxycodone her Percocets for weeks; he does smoke cannabis daily. Denies SI or HI Collateral Patient asked va underwriter to talk with his sister; his sister Anna did call and added that on Latuda and Abilify he did very well was functional, focused, clear minded with no depression or anxiety. She reports this past August patient had what seems to have been a manic episode, where he was talking fast, saying nonsensical things, paranoid, erratic behavior and grabbed her arm would not like go; however it is not clear the duration of this episode. At that time he also crawled into bed with her and was Caress in her. She reports that this past week he tried to fondle her and rubbed his penis against his 77-year-old aunt. He she says he told police that he still has sexual feelings for his sister Hospital course: Started on Abilify 04/17 patient remains ambivalent and hesitant to start medication; he agrees that Abilify would be his likely 1st choice. Hollock Maker discussed the cost and benefits of taking Abilify but also of not taking Abilify which would be to remain symptomatic, depressed, confused and struggling to function adequately on his own. Patient complaining of insomnia but refuses medication for it at this time. 04/10 Patient a feeling a little better but still feels confused. Very focused and frustrated with his sisters interventions, saying that he needs someone in his life who is rational and making helpful complements. He complains that his sister is frequently getting angry, yelling, demanding and even interfering; he explains to va underwriter that during him [facility] meeting his sister got so upset that both other clinicians present had to address her incivility and aggressive tone which he says is not what normal people do.. Because of this, He says he does not feel he can turn to her for help, despite her repeatedly telling him that he is mentally ill and that she is not. Patient said no problems with Abilify that he took this past weekend; agrees to get on long-acting injectable, liking the idea that he does not have to worry about remembering to get pills. Patient is anxious about his housing, since his sister kicked him out of his current house and has put up for sale... -of note, provider, high school social science teacher and provider covering on the weekend all attest to patient's sister, healthcare proxy, being demanding, belligerent and unable to accept explanations for treatment plan. Today at [facility] meeting sister started to barrier to patient getting outpatient treatment services and was needed to be asked to change her behavior or leave the meeting. 04/21 patient received Abilify Maintena; patient less depressed, social in the milieu; still odd with some delusional thinking, inappropriate towards [facility] worker; did not discuss this with him yet until can get more details 04/22 still confused and reports having trouble thinking about the various stressful things in his life, his sister, housing, treatment, his mother... Feels that his mind is racing; agrees to increase Abilify p.o. to 10 mg. trouble sleeping and agrees to try clonidine at bedtime Discussed [facility] worker Angy is concern last time about patient being inappropriate; she clarified that patient did not make any inappropriate comments but rather was just getting to physically close to her while looking at paperwork. -of note, patient's sister called [facility] worker compensation supervisor and said that she did have a signed release of information for [facility], which she does not have (and they did not release information). 04/23 says a little better; still some confused/disorganized thinking; much anxiety; will hold of dx of DULCE until Abilify becomes therapeutic to see if psychotic confusion further clears. 04/24 seems to be very slowly improving 04/25 constricted, some delayed in response but slightly more aware of his surrounding- attending more to ADLs. no aggression towards self or others. 04/27 continues to improve, seems a little more organized. Will add doxepin for chronic anxiety and worries as well as insomnia; will also increase clonidine to 0.2 mg for continued insomnia 04/29 remains much improved however continues to have some mental confusion as well as insomnia, which is likely contributory. Patient cited difficulty finding time in the day to take a shower though there is very little to distract him from ADLs. Will increase Abilify to see if can help with mental confusion as it seems very possible that this confusion is at least partly due to psychotic illness; will increase doxepin for continued anxiety and insomnia 04/30 continue current treatment plan 05/01 discontinue clonidine and added propranolol p.r.n. for anxiety at patient's request; patient complains of insomnia but ambivalent about medication. Said okay to a adding Seroquel but not sure if he will take it. Discussed Ambien however patient has a history of sleep walking; mirtazapine not helpful 05/03 continue rx. Plan: CV Q 15 minute checks Received Abilify Maintena 400 mg 1 time dose on 04/20 Continue Abilify 15 mg daily; will see if patient is willing to increase; PO should overlap Maintena by at least 2 weeks Continue Doxepin 50mg for anxiety (DULCE?) and insomnia Added propranolol 5 mg t.i.d. p.r.n. for anxiety Added Seroquel 50 mg q.h.s. for insomnia Continue trazodone 50 mg q.h.s.; will increase if continued insomnia -Discontinue metformin; patient refuses -patient refused ziprasidone Discontinue clonidine not helping and no longer wants -Hollock Maker discussed clozapine and lithium with him and printed out literature on benefits/risks/side effects; patient will consider; Reportedly has also done well on Latuda and Abilify in the past though he did develop side effects of tardive dyskinesia and weight gain Informed Consent: understands Reason for continued inpatient stay Substantial Risk for: rapid decompensation Time Spent With Patient Time: Total time managing care of this patient today ____ minutes.
[2023-05-03] MEDS: Ibuprofen 600 MG TABLET PO (16:18)
[2023-05-03 17:13] VITALS: BP 161/92; PULSE 96; TEMP 36.2; O2SAT 96
[2023-05-04 08:23] VITALS: BP 133/80; PULSE 91; RESP 18; TEMP 36.3; O2SAT 97
[2023-05-04] MEDS: Nicotine 14 MG PATCH.TD24 TRANSDERMA (08:46)
--- NOTE | 2023-05-04 13:26 | HO.PSYCHPN ---
Subjective Subjective Date of Service: 05/04/23 Reason For Visit: Psychosis Interim History: Pt seen in milieu. Discussed with team. Plan of care reviewed. Pt mostly remains in his room, reading. Social intermittently with peers. Spoke of his mother entering assisted living, I have not seen her for a time . Medication Compliance: Yes Side effects from medications: No Attending Groups: Intermittent Review of Systems Acute medical concerns: No Mental Status Exam Mental Status Exam Patient Appearance: Appropriate Patient Orientation: Person, Place, Time and Situation Level of Consciousness: Alert Patient Behavior: Talkative and Good Eye Contact Mood Description: Withdrawn Affect Description: Withdrawn Patient Cognition Impaired: No Ability to Follow Directions: Fair Speech Pattern: Spontaneous Speech Memory Description: Intact Hallucinations: None Thought Process: Distracted and Rumination Thought Content: positive for Perseveration Judgement: Fair Diagnostics Vital Signs (24Hr): Vital Signs - 24 hr 05/03/23 17:13 05/04/23 08:23 Temperature 97.1 F 97.3 F Pulse Rate 96 91 Respiratory Rate 18 Blood Pressure 161/92 H 133/80 Pulse Oximetry 96 97 Oxygen Delivery Method Room Air Room Air BMI result Body Mass Index 32.4 Labs 04/14/23 20:03 04/14/23 20:03 Medications Medications Current Medications Acetaminophen (Acetaminophen 325 Mg Tablet) 650 mg PO Q6H PRN PRN Reason: Headache/Pain Mild Scale (1-3) Last Admin: 04/27/23 10:22 Dose: 650 mg Al Hydroxide/Mg Hydroxide (Magnesium Hydrox/Alum Hydrox 30 Ml Oral.Susp) 30 ml PO Q6H PRN PRN Reason: Heartburn/Nausea Aripiprazole (Aripiprazole 15 Mg Tablet) 15 mg PO DAILY [facility] Last Admin: 05/04/23 08:46 Dose: 15 mg Doxepin HCl (Doxepin Hcl 25 Mg Capsule) 50 mg PO BEDTIME [facility] Last Admin: 05/03/23 21:46 Dose: 50 mg Hydroxyzine HCl (Hydroxyzine Hcl 25 Mg Tablet) 25 mg PO Q6H PRN PRN Reason: Anxiety Last Admin: 04/30/23 18:49 Dose: 25 mg Ibuprofen (Ibuprofen 600 Mg Tablet) 600 mg PO Q6H PRN PRN Reason: Pain, Mild (Pain Scale 1-3) Last Admin: 05/03/23 16:18 Dose: 600 mg Magnesium Hydroxide (Milk Of Magnesia 30 Ml Oral.Susp) 30 ml PO DAILY PRN PRN Reason: Constipation Melatonin (Melatonin 3 Mg Tablet) 6 mg PO BEDTIME [facility] Last Admin: 05/03/23 21:46 Dose: 6 mg Nicotine (Nicotine 14 Mg Patch.Td24) 14 mg TRANSDERMA DAILY [facility] Last Admin: 05/04/23 08:46 Dose: 14 mg Nicotine Polacrilex (Nicotine Polacrilex 2 Mg Gum) 4 mg BUCCAL Q2H PRN PRN Reason: Nicotine Cravings Nicotine Polacrilex (Nicotine Polacrilex 2 Mg Gum) 4 mg BUCCAL Q2H PRN PRN Reason: Nicotine Cravings Propranolol HCl (Propranolol Hcl 10 Mg Tablet) 5 mg PO TID PRN; Protocol PRN Reason: anxiety Quetiapine Fumarate (Quetiapine Fumarate 50 Mg Tablet) 50 mg PO BEDTIME [facility] Last Admin: 05/03/23 21:46 Dose: 50 mg Vitamin D (Cholecalciferol (Vitamin D3) 10 Mcg Tablet) 10 mcg PO DAILY [facility] Last Admin: 05/04/23 08:46 Dose: 10 mcg Allergies Allergies Allergy/AdvReac Type Severity Reaction Status Date / Time No Known Allergies Allergy Verified 09/18/22 23:01 [No Known Allergies*] Assessment & Plan Assessment & Plan (1) Schizoaffective disorder, depressive type: Status: Acute Code(s): F25.1 - Schizoaffective disorder, depressive type (2) PTSD (post-traumatic stress disorder): Status: Acute Code(s): F43.10 - Post-traumatic stress disorder, unspecified Plan Patient is a 47-year-old male with history of schizoaffective disorder, history of substance abuse in sustained remission, who presents after his sister called crisis for decompensation in the community. Patient reports that he has been struggling more since his mother with whom he was living, was diagnosed with dementia and moved out of the house this past summer. Apparently she was on top of his medications and appointments and since then he has not been taking any medication. He says he feels a mental confusion, with ruminating thoughts and quite a bit of depression; patient reports he has been staying by himself in the house rarely leaving. Patient said that this past week his sister came over to the house, found it in extreme disarray, trash all over the place, rotting food and determined that he was not able to care for himself and so called crisis. Patient however feels that his sister is exaggerating his condition in order to force him out of the house so that the house can be sold. Patient says he has been up for the past 3 days but does not think he is having a manic episode and is not sure if he has ever had one. He said he has had insomnia for years. He agrees he has not been bathing very much and does not know why. He endorses auditory hallucinations that come and go throughout the day; he often sees things out of the corner of his eye, as if someone is there but when he looks there is nothing. Patient denies any recent alcohol abuse, not having had a drink for weeks; he denies drug abuse saying that he has not abused oxycodone her Percocets for weeks; he does smoke cannabis daily. Denies SI or HI Collateral Patient asked curriculum writer to talk with his sister; his sister Anna did call and added that on Latuda and Abilify he did very well was functional, focused, clear minded with no depression or anxiety. She reports this past August patient had what seems to have been a manic episode, where he was talking fast, saying nonsensical things, paranoid, erratic behavior and grabbed her arm would not like go; however it is not clear the duration of this episode. At that time he also crawled into bed with her and was Caress in her. She reports that this past week he tried to fondle her and rubbed his penis against his 77-year-old aunt. He she says he told police that he still has sexual feelings for his sister Hospital course: Started on Abilify 04/17 patient remains ambivalent and hesitant to start medication; he agrees that Abilify would be his likely 1st choice. Shotgun Shell Reprinting Unit Operator discussed the cost and benefits of taking Abilify but also of not taking Abilify which would be to remain symptomatic, depressed, confused and struggling to function adequately on his own. Patient complaining of insomnia but refuses medication for it at this time. 04/10 Patient a feeling a little better but still feels confused. Very focused and frustrated with his sisters interventions, saying that he needs someone in his life who is rational and making helpful complements. He complains that his sister is frequently getting angry, yelling, demanding and even interfering; he explains to curriculum writer that during him [facility] meeting his sister got so upset that both other clinicians present had to address her incivility and aggressive tone which he says is not what normal people do.. Because of this, He says he does not feel he can turn to her for help, despite her repeatedly telling him that he is mentally ill and that she is not. Patient said no problems with Abilify that he took this past weekend; agrees to get on long-acting injectable, liking the idea that he does not have to worry about remembering to get pills. Patient is anxious about his housing, since his sister kicked him out of his current house and has put up for sale... -of note, provider, manager social responsibility and provider covering on the weekend all attest to patient's sister, healthcare proxy, being demanding, belligerent and unable to accept explanations for treatment plan. Today at [facility] meeting sister started to barrier to patient getting outpatient treatment services and was needed to be asked to change her behavior or leave the meeting. 04/21 patient received Abilify Maintena; patient less depressed, social in the milieu; still odd with some delusional thinking, inappropriate towards [facility] worker; did not discuss this with him yet until can get more details 04/22 still confused and reports having trouble thinking about the various stressful things in his life, his sister, housing, treatment, his mother... Feels that his mind is racing; agrees to increase Abilify p.o. to 10 mg. trouble sleeping and agrees to try clonidine at bedtime Discussed [facility] worker Angy is concern last time about patient being inappropriate; she clarified that patient did not make any inappropriate comments but rather was just getting to physically close to her while looking at paperwork. -of note, patient's sister called [facility] worker industrial gas servicer supervisor and said that she did have a signed release of information for [facility], which she does not have (and they did not release information). 04/23 says a little better; still some confused/disorganized thinking; much anxiety; will hold of dx of DULCE until Abilify becomes therapeutic to see if psychotic confusion further clears. 04/24 seems to be very slowly improving 04/25 constricted, some delayed in response but slightly more aware of his surrounding- attending more to ADLs. no aggression towards self or others. 04/27 continues to improve, seems a little more organized. Will add doxepin for chronic anxiety and worries as well as insomnia; will also increase clonidine to 0.2 mg for continued insomnia 04/29 remains much improved however continues to have some mental confusion as well as insomnia, which is likely contributory. Patient cited difficulty finding time in the day to take a shower though there is very little to distract him from ADLs. Will increase Abilify to see if can help with mental confusion as it seems very possible that this confusion is at least partly due to psychotic illness; will increase doxepin for continued anxiety and insomnia 04/30 continue current treatment plan 05/01 discontinue clonidine and added propranolol p.r.n. for anxiety at patient's request; patient complains of insomnia but ambivalent about medication. Said okay to a adding Seroquel but not sure if he will take it. Discussed Ambien however patient has a history of sleep walking; mirtazapine not helpful 05/03 continue rx. 05/04 continue rx Plan: CV Q 15 minute checks Received Abilify Maintena 400 mg 1 time dose on 04/20 Continue Abilify 15 mg daily; will see if patient is willing to increase; PO should overlap Maintena by at least 2 weeks Continue Doxepin 50mg for anxiety (DULCE?) and insomnia Added propranolol 5 mg t.i.d. p.r.n. for anxiety Added Seroquel 50 mg q.h.s. for insomnia Continue trazodone 50 mg q.h.s.; will increase if continued insomnia -Discontinue metformin; patient refuses -patient refused ziprasidone Discontinue clonidine not helping and no longer wants -Shotgun Shell Reprinting Unit Operator discussed clozapine and lithium with him and printed out literature on benefits/risks/side effects; patient will consider; Reportedly has also done well on Latuda and Abilify in the past though he did develop side effects of tardive dyskinesia and weight gain Informed Consent: understands and further education needed Reason for continued inpatient stay Substantial Risk for: rapid decompensation Time Spent With Patient Time: Total time managing care of this patient today ____ minutes.
[2023-05-04] MEDS: Acetaminophen 325 MG TABLET 650 MG PO (17:06)
[2023-05-04 17:10] VITALS: BP 148/90; PULSE 120; TEMP 36.8
--- NOTE | 2023-05-05 09:11 | HO.PSYCHPN ---
Subjective Subjective Date of Service: 05/05/23 Reason For Visit: Psychosis Interim History: Met with patient; discussed with team; reviewed notes pt reports mood better; says sleeping better as well, without seroquel. agrees with plan to go to [facility]. feels meds are helpful. Mental Status Exam Mental Status Exam Narrative: Pt is alert and oriented; behavior is cooperative, friendly, calm; dressed in casual attire; a little scruffy with adequate hygiene; mood is described as good and affect congruent; more relaxed; eye contact appropriate; Speech normal rate, volume and prosody;no psychomotor agitation/retardation present; thought process more goal directed and linear though could still be circumstantial, can get distracted and be perseverative; Thought content is on current struggles, aftercare treatment; no delusional thinking expressed; denies any SI/HI. No AVH; Patients insight and judgment impaired but improved and adequate. Diagnostics Vital Signs (24Hr): Vital Signs - 24 hr 05/04/23 17:10 Temperature 98.3 F Pulse Rate 120 H Blood Pressure 148/90 H BMI result Body Mass Index 32.4 Labs 04/14/23 20:03 04/14/23 20:03 Medications Medications Current Medications Acetaminophen (Acetaminophen 325 Mg Tablet) 650 mg PO Q6H PRN PRN Reason: Headache/Pain Mild Scale (1-3) Last Admin: 05/04/23 17:06 Dose: 650 mg Al Hydroxide/Mg Hydroxide (Magnesium Hydrox/Alum Hydrox 30 Ml Oral.Susp) 30 ml PO Q6H PRN PRN Reason: Heartburn/Nausea Aripiprazole (Aripiprazole 15 Mg Tablet) 15 mg PO DAILY [facility] Last Admin: 05/04/23 08:46 Dose: 15 mg Doxepin HCl (Doxepin Hcl 25 Mg Capsule) 50 mg PO BEDTIME [facility] Last Admin: 05/04/23 21:20 Dose: 50 mg Hydroxyzine HCl (Hydroxyzine Hcl 25 Mg Tablet) 25 mg PO Q6H PRN PRN Reason: Anxiety Last Admin: 04/30/23 18:49 Dose: 25 mg Ibuprofen (Ibuprofen 600 Mg Tablet) 600 mg PO Q6H PRN PRN Reason: Pain, Mild (Pain Scale 1-3) Last Admin: 05/03/23 16:18 Dose: 600 mg Magnesium Hydroxide (Milk Of Magnesia 30 Ml Oral.Susp) 30 ml PO DAILY PRN PRN Reason: Constipation Melatonin (Melatonin 3 Mg Tablet) 6 mg PO BEDTIME [facility] Last Admin: 05/04/23 21:22 Dose: 6 mg Nicotine (Nicotine 14 Mg Patch.Td24) 14 mg TRANSDERMA DAILY [facility] Last Admin: 05/04/23 08:46 Dose: 14 mg Nicotine Polacrilex (Nicotine Polacrilex 2 Mg Gum) 4 mg BUCCAL Q2H PRN PRN Reason: Nicotine Cravings Nicotine Polacrilex (Nicotine Polacrilex 2 Mg Gum) 4 mg BUCCAL Q2H PRN PRN Reason: Nicotine Cravings Propranolol HCl (Propranolol Hcl 10 Mg Tablet) 5 mg PO TID PRN; Protocol PRN Reason: anxiety Quetiapine Fumarate (Quetiapine Fumarate 50 Mg Tablet) 50 mg PO BEDTIME [facility] Last Admin: 05/04/23 21:23 Dose: Not Given Vitamin D (Cholecalciferol (Vitamin D3) 10 Mcg Tablet) 10 mcg PO DAILY [facility] Last Admin: 05/04/23 08:46 Dose: 10 mcg Allergies Allergies Allergy/AdvReac Type Severity Reaction Status Date / Time No Known Allergies Allergy Verified 09/18/22 23:01 [No Known Allergies*] Assessment & Plan Assessment & Plan (1) Schizoaffective disorder, depressive type: Status: Acute Code(s): F25.1 - Schizoaffective disorder, depressive type (2) PTSD (post-traumatic stress disorder): Status: Acute Code(s): F43.10 - Post-traumatic stress disorder, unspecified Plan Patient is a 47-year-old male with history of schizoaffective disorder, history of substance abuse in sustained remission, who presents after his sister called crisis for decompensation in the community. Patient reports that he has been struggling more since his mother with whom he was living, was diagnosed with dementia and moved out of the house this past summer. Apparently she was on top of his medications and appointments and since then he has not been taking any medication. He says he feels a mental confusion, with ruminating thoughts and quite a bit of depression; patient reports he has been staying by himself in the house rarely leaving. Patient said that this past week his sister came over to the house, found it in extreme disarray, trash all over the place, rotting food and determined that he was not able to care for himself and so called crisis. Patient however feels that his sister is exaggerating his condition in order to force him out of the house so that the house can be sold. Patient says he has been up for the past 3 days but does not think he is having a manic episode and is not sure if he has ever had one. He said he has had insomnia for years. He agrees he has not been bathing very much and does not know why. He endorses auditory hallucinations that come and go throughout the day; he often sees things out of the corner of his eye, as if someone is there but when he looks there is nothing. Patient denies any recent alcohol abuse, not having had a drink for weeks; he denies drug abuse saying that he has not abused oxycodone her Percocets for weeks; he does smoke cannabis daily. Denies SI or HI Collateral Patient asked underwriter to talk with his sister; his sister Anna did call and added that on Latuda and Abilify he did very well was functional, focused, clear minded with no depression or anxiety. She reports this past August patient had what seems to have been a manic episode, where he was talking fast, saying nonsensical things, paranoid, erratic behavior and grabbed her arm would not like go; however it is not clear the duration of this episode. At that time he also crawled into bed with her and was Caress in her. She reports that this past week he tried to fondle her and rubbed his penis against his 77-year-old aunt. He she says he told police that he still has sexual feelings for his sister Hospital course: Started on Abilify 04/17 patient remains ambivalent and hesitant to start medication; he agrees that Abilify would be his likely 1st choice. Hydraulic And Plumbing Installer discussed the cost and benefits of taking Abilify but also of not taking Abilify which would be to remain symptomatic, depressed, confused and struggling to function adequately on his own. Patient complaining of insomnia but refuses medication for it at this time. 04/10 Patient a feeling a little better but still feels confused. Very focused and frustrated with his sisters interventions, saying that he needs someone in his life who is rational and making helpful complements. He complains that his sister is frequently getting angry, yelling, demanding and even interfering; he explains to underwriter that during him [facility] meeting his sister got so upset that both other clinicians present had to address her incivility and aggressive tone which he says is not what normal people do.. Because of this, He says he does not feel he can turn to her for help, despite her repeatedly telling him that he is mentally ill and that she is not. Patient said no problems with Abilify that he took this past weekend; agrees to get on long-acting injectable, liking the idea that he does not have to worry about remembering to get pills. Patient is anxious about his housing, since his sister kicked him out of his current house and has put up for sale... -of note, provider, social worker psychiatric and provider covering on the weekend all attest to patient's sister, healthcare proxy, being demanding, belligerent and unable to accept explanations for treatment plan. Today at [facility] meeting sister started to barrier to patient getting outpatient treatment services and was needed to be asked to change her behavior or leave the meeting. 04/21 patient received Abilify Maintena; patient less depressed, social in the milieu; still odd with some delusional thinking, inappropriate towards [facility] worker; did not discuss this with him yet until can get more details 04/22 still confused and reports having trouble thinking about the various stressful things in his life, his sister, housing, treatment, his mother... Feels that his mind is racing; agrees to increase Abilify p.o. to 10 mg. trouble sleeping and agrees to try clonidine at bedtime Discussed [facility] worker Angy is concern last time about patient being inappropriate; she clarified that patient did not make any inappropriate comments but rather was just getting to physically close to her while looking at paperwork. -of note, patient's sister called [facility] worker ice house supervisor and said that she did have a signed release of information for [facility], which she does not have (and they did not release information). 04/23 says a little better; still some confused/disorganized thinking; much anxiety; will hold of dx of DULCE until Abilify becomes therapeutic to see if psychotic confusion further clears. 04/24 seems to be very slowly improving 04/25 constricted, some delayed in response but slightly more aware of his surrounding- attending more to ADLs. no aggression towards self or others. 04/27 continues to improve, seems a little more organized. Will add doxepin for chronic anxiety and worries as well as insomnia; will also increase clonidine to 0.2 mg for continued insomnia 04/29 remains much improved however continues to have some mental confusion as well as insomnia, which is likely contributory. Patient cited difficulty finding time in the day to take a shower though there is very little to distract him from ADLs. Will increase Abilify to see if can help with mental confusion as it seems very possible that this confusion is at least partly due to psychotic illness; will increase doxepin for continued anxiety and insomnia 04/30 continue current treatment plan 05/01 discontinue clonidine and added propranolol p.r.n. for anxiety at patient's request; patient complains of insomnia but ambivalent about medication. Said okay to a adding Seroquel but not sure if he will take it. Discussed Ambien however patient has a history of sleep walking; mirtazapine not helpful 05/03 continue rx. 05/05 stable; dispo planing; continue plan Plan: CV Q 15 minute checks Received Abilify Maintena 400 mg 1 time dose on 04/20 Continue Abilify 15 mg daily; will see if patient is willing to increase; PO should overlap Maintena by at least 2 weeks Continue Doxepin 50mg for anxiety (DULCE?) and insomnia Added propranolol 5 mg t.i.d. p.r.n. for anxiety dc Seroquel Continue trazodone 50 mg q.h.s.; will increase if continued insomnia -Discontinue metformin; patient refuses -patient refused ziprasidone Discontinue clonidine not helping and no longer wants -Hydraulic And Plumbing Installer discussed clozapine and lithium with him and printed out literature on benefits/risks/side effects; patient will consider; Reportedly has also done well on Latuda and Abilify in the past though he did develop side effects of tardive dyskinesia and weight gain Patient educated on: diagnosis and medication risk/benefits Informed Consent: understands Reason for continued inpatient stay Substantial Risk for: stable for discharge Time Spent With Patient Time: Total time managing care of this patient today ____ minutes.
[2023-05-05 09:22] VITALS: BP 145/83; PULSE 95; RESP 16; TEMP 36.2; O2SAT 98
[2023-05-05 18:00] VITALS: BP 162/94; PULSE 82; RESP 16; TEMP 36.6; O2SAT 97
[2023-05-05] MEDS: Acetaminophen 325 MG TABLET 650 MG PO (19:53)
[2023-05-06 06:00] VITALS: BP 131/85; PULSE 83; RESP 16; O2SAT 97
--- NOTE | 2023-05-06 09:42 | HO.PSYCHPN ---
Subjective Subjective Date of Service: 05/06/23 Reason For Visit: Psychosis Interim History: met with patient; discussed with team No change in presentation. Intermittently anxious about various things, discharge, going to respite. However remains overall feeling better. Said he is sleeping better but not as well last night. Will try to use improved sleep hygiene to improve sleep. Mental Status Exam Mental Status Exam Narrative: Pt is alert and oriented; behavior is cooperative, friendly, calm; dressed in casual attire; a little scruffy with adequate hygiene; mood is described as good and affect congruent; more relaxed; eye contact appropriate; Speech normal rate, volume and prosody;no psychomotor agitation/retardation present; thought process more goal directed and linear though could still be circumstantial, can get distracted and be perseverative; Thought content is on current struggles, aftercare treatment; no delusional thinking expressed; denies any SI/HI. No AVH; Patients insight and judgment impaired but improved and adequate. Diagnostics Vital Signs (24Hr): Vital Signs - 24 hr 05/05/23 18:00 05/06/23 06:00 Temperature 98 F Pulse Rate 82 83 Respiratory Rate 16 16 Blood Pressure 162/94 H 131/85 Pulse Oximetry 97 97 Oxygen Delivery Method Room Air Room Air BMI result Body Mass Index 32.4 Labs 04/14/23 20:03 04/14/23 20:03 Medications Medications Current Medications Acetaminophen (Acetaminophen 325 Mg Tablet) 650 mg PO Q6H PRN PRN Reason: Headache/Pain Mild Scale (1-3) Last Admin: 05/05/23 19:53 Dose: 650 mg Al Hydroxide/Mg Hydroxide (Magnesium Hydrox/Alum Hydrox 30 Ml Oral.Susp) 30 ml PO Q6H PRN PRN Reason: Heartburn/Nausea Aripiprazole (Aripiprazole 15 Mg Tablet) 15 mg PO DAILY [facility] Last Admin: 05/06/23 09:24 Dose: 15 mg Doxepin HCl (Doxepin Hcl 25 Mg Capsule) 50 mg PO BEDTIME [facility] Last Admin: 05/05/23 19:52 Dose: 50 mg Hydroxyzine HCl (Hydroxyzine Hcl 25 Mg Tablet) 25 mg PO Q6H PRN PRN Reason: Anxiety Last Admin: 04/30/23 18:49 Dose: 25 mg Ibuprofen (Ibuprofen 600 Mg Tablet) 600 mg PO Q6H PRN PRN Reason: Pain, Mild (Pain Scale 1-3) Last Admin: 05/03/23 16:18 Dose: 600 mg Magnesium Hydroxide (Milk Of Magnesia 30 Ml Oral.Susp) 30 ml PO DAILY PRN PRN Reason: Constipation Melatonin (Melatonin 3 Mg Tablet) 6 mg PO BEDTIME [facility] Last Admin: 05/05/23 19:53 Dose: 6 mg Nicotine (Nicotine 14 Mg Patch.Td24) 14 mg TRANSDERMA DAILY [facility] Last Admin: 05/06/23 09:24 Dose: 14 mg Nicotine Polacrilex (Nicotine Polacrilex 2 Mg Gum) 4 mg BUCCAL Q2H PRN PRN Reason: Nicotine Cravings Nicotine Polacrilex (Nicotine Polacrilex 2 Mg Gum) 4 mg BUCCAL Q2H PRN PRN Reason: Nicotine Cravings Propranolol HCl (Propranolol Hcl 10 Mg Tablet) 5 mg PO TID PRN; Protocol PRN Reason: anxiety Last Admin: 05/05/23 19:52 Dose: 5 mg Quetiapine Fumarate (Quetiapine Fumarate 50 Mg Tablet) 50 mg PO BEDTIME [facility] Last Admin: 05/05/23 19:57 Dose: Not Given Vitamin D (Cholecalciferol (Vitamin D3) 10 Mcg Tablet) 10 mcg PO DAILY [facility] Last Admin: 05/06/23 09:24 Dose: 10 mcg Allergies Allergies Allergy/AdvReac Type Severity Reaction Status Date / Time No Known Allergies Allergy Verified 09/18/22 23:01 [No Known Allergies*] Assessment & Plan Assessment & Plan (1) Schizoaffective disorder, depressive type: Status: Acute Code(s): F25.1 - Schizoaffective disorder, depressive type (2) PTSD (post-traumatic stress disorder): Status: Acute Code(s): F43.10 - Post-traumatic stress disorder, unspecified Plan Patient is a 47-year-old male with history of schizoaffective disorder, history of substance abuse in sustained remission, who presents after his sister called crisis for decompensation in the community. Patient reports that he has been struggling more since his mother with whom he was living, was diagnosed with dementia and moved out of the house this past summer. Apparently she was on top of his medications and appointments and since then he has not been taking any medication. He says he feels a mental confusion, with ruminating thoughts and quite a bit of depression; patient reports he has been staying by himself in the house rarely leaving. Patient said that this past week his sister came over to the house, found it in extreme disarray, trash all over the place, rotting food and determined that he was not able to care for himself and so called crisis. Patient however feels that his sister is exaggerating his condition in order to force him out of the house so that the house can be sold. Patient says he has been up for the past 3 days but does not think he is having a manic episode and is not sure if he has ever had one. He said he has had insomnia for years. He agrees he has not been bathing very much and does not know why. He endorses auditory hallucinations that come and go throughout the day; he often sees things out of the corner of his eye, as if someone is there but when he looks there is nothing. Patient denies any recent alcohol abuse, not having had a drink for weeks; he denies drug abuse saying that he has not abused oxycodone her Percocets for weeks; he does smoke cannabis daily. Denies SI or HI Collateral Patient asked telegraphic typewriter operator chief to talk with his sister; his sister Anna did call and added that on Latuda and Abilify he did very well was functional, focused, clear minded with no depression or anxiety. She reports this past August patient had what seems to have been a manic episode, where he was talking fast, saying nonsensical things, paranoid, erratic behavior and grabbed her arm would not like go; however it is not clear the duration of this episode. At that time he also crawled into bed with her and was Caress in her. She reports that this past week he tried to fondle her and rubbed his penis against his 77-year-old aunt. He she says he told police that he still has sexual feelings for his sister Hospital course: Started on Abilify 04/17 patient remains ambivalent and hesitant to start medication; he agrees that Abilify would be his likely 1st choice. Exhibits Curator discussed the cost and benefits of taking Abilify but also of not taking Abilify which would be to remain symptomatic, depressed, confused and struggling to function adequately on his own. Patient complaining of insomnia but refuses medication for it at this time. 04/10 Patient a feeling a little better but still feels confused. Very focused and frustrated with his sisters interventions, saying that he needs someone in his life who is rational and making helpful complements. He complains that his sister is frequently getting angry, yelling, demanding and even interfering; he explains to telegraphic typewriter operator chief that during him [facility] meeting his sister got so upset that both other clinicians present had to address her incivility and aggressive tone which he says is not what normal people do.. Because of this, He says he does not feel he can turn to her for help, despite her repeatedly telling him that he is mentally ill and that she is not. Patient said no problems with Abilify that he took this past weekend; agrees to get on long-acting injectable, liking the idea that he does not have to worry about remembering to get pills. Patient is anxious about his housing, since his sister kicked him out of his current house and has put up for sale... -of note, provider, administrator social welfare and provider covering on the weekend all attest to patient's sister, healthcare proxy, being demanding, belligerent and unable to accept explanations for treatment plan. Today at [facility] meeting sister started to barrier to patient getting outpatient treatment services and was needed to be asked to change her behavior or leave the meeting. 04/21 patient received Abilify Maintena; patient less depressed, social in the milieu; still odd with some delusional thinking, inappropriate towards [facility] worker; did not discuss this with him yet until can get more details 04/22 still confused and reports having trouble thinking about the various stressful things in his life, his sister, housing, treatment, his mother... Feels that his mind is racing; agrees to increase Abilify p.o. to 10 mg. trouble sleeping and agrees to try clonidine at bedtime Discussed [facility] worker Angy is concern last time about patient being inappropriate; she clarified that patient did not make any inappropriate comments but rather was just getting to physically close to her while looking at paperwork. -of note, patient's sister called [facility] worker timekeeper supervisor and said that she did have a signed release of information for [facility], which she does not have (and they did not release information). 04/23 says a little better; still some confused/disorganized thinking; much anxiety; will hold of dx of DULCE until Abilify becomes therapeutic to see if psychotic confusion further clears. 04/24 seems to be very slowly improving 04/25 constricted, some delayed in response but slightly more aware of his surrounding- attending more to ADLs. no aggression towards self or others. 04/27 continues to improve, seems a little more organized. Will add doxepin for chronic anxiety and worries as well as insomnia; will also increase clonidine to 0.2 mg for continued insomnia 04/29 remains much improved however continues to have some mental confusion as well as insomnia, which is likely contributory. Patient cited difficulty finding time in the day to take a shower though there is very little to distract him from ADLs. Will increase Abilify to see if can help with mental confusion as it seems very possible that this confusion is at least partly due to psychotic illness; will increase doxepin for continued anxiety and insomnia 04/30 continue current treatment plan 05/01 discontinue clonidine and added propranolol p.r.n. for anxiety at patient's request; patient complains of insomnia but ambivalent about medication. Said okay to a adding Seroquel but not sure if he will take it. Discussed Ambien however patient has a history of sleep walking; mirtazapine not helpful 05/03 continue rx. 05/05 stable; dispo planing; continue plan Plan: CV Q 15 minute checks Received Abilify Maintena 400 mg 1 time dose on 04/20 Continue Abilify 15 mg daily; will see if patient is willing to increase; PO should overlap Maintena by at least 2 weeks Continue Doxepin 50mg for anxiety (DULCE?) and insomnia Added propranolol 5 mg t.i.d. p.r.n. for anxiety dc Seroquel Continue trazodone 50 mg q.h.s.; will increase if continued insomnia -Discontinue metformin; patient refuses -patient refused ziprasidone Discontinue clonidine not helping and no longer wants -Exhibits Curator discussed clozapine and lithium with him and printed out literature on benefits/risks/side effects; patient will consider; Reportedly has also done well on Latuda and Abilify in the past though he did develop side effects of tardive dyskinesia and weight gain Patient educated on: diagnosis and medication risk/benefits Informed Consent: understands Reason for continued inpatient stay Substantial Risk for: stable for discharge Time Spent With Patient Time: Total time managing care of this patient today ____ minutes.
[2023-05-06 18:00] VITALS: BP 134/68; PULSE 86; RESP 16; TEMP 36.4; O2SAT 98
[2023-05-06] MEDS: Doxepin HCl 25 MG CAPSULE 75 MG PO (19:35)
[2023-05-06] MEDS: Melatonin 3 MG TABLET 6 MG PO (19:36)
[2023-05-07 06:00] VITALS: BP 150/91; PULSE 92; RESP 18; TEMP 36.8; O2SAT 97
[2023-05-07 07:00] VITALS: BMI 32.3
[2023-05-07] MEDS: Nicotine 14 MG PATCH.TD24 TRANSDERMA (08:29)
[2023-05-07] MEDS: Cholecalciferol (Vitamin D3) 10 MCG TABLET PO (08:29)
[2023-05-07] MEDS: ARIPiprazole 15 MG TABLET PO (08:29)
--- NOTE | 2023-05-07 09:36 | P.PNPSI_ITS ---
Subjective Subjective Date of Service: 05/07/23 Reason For Visit: Psychosis Interim History: met with patient; discussed with team Patient reports that he was doing a little better yesterday than today, feeling a little more anxious but agrees that life has ups and Downs and that overall he has more good days than otherwise. Patient reports he did sleep a little better last night though he still struggles with sleep in general and did wake up early. Does not want any medication changes at this time. Still anticipating discharge to respite soon. Discussed patient's use of coping skills on the unit; Discussing aftercare plans about getting in shape and keeping himself busy. Remains in good behavioral and impulse control on the unit, appropriate with peers and staff Mental Status Exam Mental Status Exam Narrative: Pt is alert and oriented; behavior is cooperative, friendly, calm; dressed in casual attire; a little scruffy with adequate hygiene; mood is described as okay and affect congruent; eye contact appropriate; Speech normal rate, volume and prosody;no psychomotor agitation/retardation present; thought process more goal directed and linear though could still be circumstantial, can get distracted and be perseverative; Thought content is on current struggles, aftercare treatment; no delusional thinking expressed; denies any SI/HI. No AVH; Patients insight and judgment impaired but improved and adequate. Diagnostics Vital Signs (24Hr): Vital Signs - 24 hr 05/06/23 18:00 05/07/23 06:00 Temperature 97.6 F 98.2 F Pulse Rate 86 92 Respiratory Rate 16 18 Blood Pressure 134/68 150/91 H Pulse Oximetry 98 97 Oxygen Delivery Method Room Air Room Air BMI result Body Mass Index 32.4 Labs 04/14/23 20:03 04/14/23 20:03 Medications Medications Current Medications Acetaminophen (Acetaminophen 325 Mg Tablet) 650 mg PO Q6H PRN PRN Reason: Headache/Pain Mild Scale (1-3) Last Admin: 05/05/23 19:53 Dose: 650 mg Al Hydroxide/Mg Hydroxide (Magnesium Hydrox/Alum Hydrox 30 Ml Oral.Susp) 30 ml PO Q6H PRN PRN Reason: Heartburn/Nausea Aripiprazole (Aripiprazole 15 Mg Tablet) 15 mg PO DAILY [facility] Last Admin: 05/07/23 08:29 Dose: 15 mg Doxepin HCl (Doxepin Hcl 25 Mg Capsule) 75 mg PO BEDTIME [facility] Last Admin: 05/06/23 19:35 Dose: 75 mg Hydroxyzine HCl (Hydroxyzine Hcl 25 Mg Tablet) 25 mg PO Q6H PRN PRN Reason: Anxiety Last Admin: 04/30/23 18:49 Dose: 25 mg Ibuprofen (Ibuprofen 600 Mg Tablet) 600 mg PO Q6H PRN PRN Reason: Pain, Mild (Pain Scale 1-3) Last Admin: 05/03/23 16:18 Dose: 600 mg Magnesium Hydroxide (Milk Of Magnesia 30 Ml Oral.Susp) 30 ml PO DAILY PRN PRN Reason: Constipation Melatonin (Melatonin 3 Mg Tablet) 6 mg PO BEDTIME [facility] Last Admin: 05/06/23 19:36 Dose: 6 mg Nicotine (Nicotine 14 Mg Patch.Td24) 14 mg TRANSDERMA DAILY [facility] Last Admin: 05/07/23 08:29 Dose: 14 mg Nicotine Polacrilex (Nicotine Polacrilex 2 Mg Gum) 4 mg BUCCAL Q2H PRN PRN Reason: Nicotine Cravings Nicotine Polacrilex (Nicotine Polacrilex 2 Mg Gum) 4 mg BUCCAL Q2H PRN PRN Reason: Nicotine Cravings Propranolol HCl (Propranolol Hcl 10 Mg Tablet) 5 mg PO TID PRN; Protocol PRN Reason: anxiety Last Admin: 05/05/23 19:52 Dose: 5 mg Vitamin D (Cholecalciferol (Vitamin D3) 10 Mcg Tablet) 10 mcg PO DAILY [facility] Last Admin: 05/07/23 08:29 Dose: 10 mcg Allergies Allergies Allergy/AdvReac Type Severity Reaction Status Date / Time No Known Allergies Allergy Verified 09/18/22 23:01 [No Known Allergies*] Assessment & Plan Assessment & Plan (1) Schizoaffective disorder, depressive type: Status: Acute Code(s): F25.1 - Schizoaffective disorder, depressive type (2) PTSD (post-traumatic stress disorder): Status: Acute Code(s): F43.10 - Post-traumatic stress disorder, unspecified Plan Patient is a 47-year-old male with history of schizoaffective disorder, history of substance abuse in sustained remission, who presents after his sister called crisis for decompensation in the community. Patient reports that he has been struggling more since his mother with whom he was living, was diagnosed with dementia and moved out of the house this past summer. Apparently she was on top of his medications and appointments and since then he has not been taking any medication. He says he feels a mental confusion, with ruminating thoughts and quite a bit of depression; patient reports he has been staying by himself in the house rarely leaving. Patient said that this past week his sister came over to the house, found it in extreme disarray, trash all over the place, rotting food and determined that he was not able to care for himself and so called crisis. Patient however feels that his sister is exaggerating his condition in order to force him out of the house so that the house can be sold. Patient says he has been up for the past 3 days but does not think he is having a manic episode and is not sure if he has ever had one. He said he has had insomnia for years. He agrees he has not been bathing very much and does not know why. He endorses auditory hallucinations that come and go throughout the day; he often sees things out of the corner of his eye, as if someone is there but when he looks there is nothing. Patient denies any recent alcohol abuse, not having had a drink for weeks; he denies drug abuse saying that he has not abused oxycodone her Percocets for weeks; he does smoke cannabis daily. Denies SI or HI Collateral Patient asked repairer typewriter to talk with his sister; his sister Anna did call and added that on Latuda and Abilify he did very well was functional, focused, clear minded with no depression or anxiety. She reports this past August patient had what seems to have been a manic episode, where he was talking fast, saying nonsensical things, paranoid, erratic behavior and grabbed her arm would not like go; however it is not clear the duration of this episode. At that time he also crawled into bed with her and was Caress in her. She reports that this past week he tried to fondle her and rubbed his penis against his 77-year-old aunt. He she says he told police that he still has sexual feelings for his sister Hospital course: Started on Abilify 04/17 patient remains ambivalent and hesitant to start medication; he agrees that Abilify would be his likely 1st choice. Reservation Sales Agent discussed the cost and benefits of taking Abilify but also of not taking Abilify which would be to remain symptomatic, depressed, confused and struggling to function adequately on his own. Patient complaining of insomnia but refuses medication for it at this time. 04/10 Patient a feeling a little better but still feels confused. Very focused and frustrated with his sisters interventions, saying that he needs someone in his life who is rational and making helpful complements. He complains that his sister is frequently getting angry, yelling, demanding and even interfering; he explains to repairer typewriter that during him [facility] meeting his sister got so upset that both other clinicians present had to address her incivility and aggressive tone which he says is not what normal people do.. Because of this, He says he does not feel he can turn to her for help, despite her repeatedly telling him that he is mentally ill and that she is not. Patient said no problems with Abilify that he took this past weekend; agrees to get on long-acting injectable, liking the idea that he does not have to worry about remembering to get pills. Patient is anxious about his housing, since his sister kicked him out of his current house and has put up for sale... -of note, provider, social and human services assistant and provider covering on the weekend all attest to patient's sister, healthcare proxy, being demanding, belligerent and unable to accept explanations for treatment plan. Today at [facility] meeting sister started to barrier to patient getting outpatient treatment services and was needed to be asked to change her behavior or leave the meeting. 04/21 patient received Abilify Maintena; patient less depressed, social in the milieu; still odd with some delusional thinking, inappropriate towards [facility] worker; did not discuss this with him yet until can get more details 04/22 still confused and reports having trouble thinking about the various stressful things in his life, his sister, housing, treatment, his mother... Feels that his mind is racing; agrees to increase Abilify p.o. to 10 mg. trouble sleeping and agrees to try clonidine at bedtime Discussed [facility] worker Angy is concern last time about patient being inappropriate; she clarified that patient did not make any inappropriate comments but rather was just getting to physically close to her while looking at paperwork. -of note, patient's sister called [facility] worker construction supervisor and said that she did have a signed release of information for [facility], which she does not have (and they did not release information). 04/23 says a little better; still some confused/disorganized thinking; much anxiety; will hold of dx of DULCE until Abilify becomes therapeutic to see if psychotic confusion further clears. 04/24 seems to be very slowly improving 04/25 constricted, some delayed in response but slightly more aware of his surrounding- attending more to ADLs. no aggression towards self or others. 04/27 continues to improve, seems a little more organized. Will add doxepin for chronic anxiety and worries as well as insomnia; will also increase clonidine to 0.2 mg for continued insomnia 04/29 remains much improved however continues to have some mental confusion as well as insomnia, which is likely contributory. Patient cited difficulty finding time in the day to take a shower though there is very little to distract him from ADLs. Will increase Abilify to see if can help with mental confusion as it seems very possible that this confusion is at least partly due to psychotic illness; will increase doxepin for continued anxiety and insomnia 04/30 continue current treatment plan 05/01 discontinue clonidine and added propranolol p.r.n. for anxiety at patient's request; patient complains of insomnia but ambivalent about medication. Said okay to a adding Seroquel but not sure if he will take it. Discussed Ambien however patient has a history of sleep walking; mirtazapine not helpful 05/03 continue rx. 05/05 stable; dispo planing; continue plan 05/07 continue current treatment regimen and dispo planning Plan: CV Q 15 minute checks Received Abilify Maintena 400 mg 1 time dose on 04/20 Continue Abilify 15 mg daily; will see if patient is willing to increase; PO should overlap Maintena by at least 2 weeks Continue Doxepin 75mg for anxiety (DULCE?) and insomnia Added propranolol 5 mg t.i.d. p.r.n. for anxiety dc Seroquel Continue trazodone 50 mg q.h.s.; will increase if continued insomnia -Discontinue metformin; patient refuses -patient refused ziprasidone Discontinue clonidine not helping and no longer wants -Reservation Sales Agent discussed clozapine and lithium with him and printed out literature on benefits/risks/side effects; patient will consider; Reportedly has also done well on Latuda and Abilify in the past though he did develop side effects of tardive dyskinesia and weight gain Patient educated on: diagnosis, medication risk/benefits and therapeutic strategies Informed Consent: understands Reason for continued inpatient stay Substantial Risk for: stable for discharge Time Spent With Patient Time: Total time managing care of this patient today ____ minutes.
[2023-05-07 17:45] VITALS: BP 129/87; PULSE 84; RESP 18; TEMP 37.2; O2SAT 98
[2023-05-07] MEDS: Doxepin HCl 25 MG CAPSULE 75 MG PO (21:14)
[2023-05-07] MEDS: Ibuprofen 600 MG TABLET PO (21:14)
[2023-05-07] MEDS: Melatonin 3 MG TABLET 6 MG PO (21:15)
[2023-05-08] MEDS: hydrOXYzine HCL 25 MG TABLET PO (05:43)
[2023-05-08] MEDS: Nicotine 14 MG PATCH.TD24 TRANSDERMA (08:34)
[2023-05-08] MEDS: Cholecalciferol (Vitamin D3) 10 MCG TABLET PO (08:34)
[2023-05-08] MEDS: ARIPiprazole 15 MG TABLET PO (08:34)
[2023-05-08 08:42] VITALS: BP 145/90; PULSE 95; RESP 18; TEMP 37.2; O2SAT 97
--- NOTE | 2023-05-08 09:31 | HO.PSYCHPN ---
Subjective Subjective Date of Service: 05/08/23 Reason For Visit: Psychosis Diagnostics Vital Signs (24Hr): Vital Signs - 24 hr 05/07/23 17:45 05/08/23 08:42 Temperature 99 F 98.9 F Pulse Rate 84 95 Respiratory Rate 18 18 Blood Pressure 129/87 145/90 H Pulse Oximetry 98 97 Oxygen Delivery Method Room Air Room Air BMI result Body Mass Index 32.3 Labs 04/14/23 20:03 04/14/23 20:03 Medications Medications Current Medications Acetaminophen (Acetaminophen 325 Mg Tablet) 650 mg PO Q6H PRN PRN Reason: Headache/Pain Mild Scale (1-3) Last Admin: 05/05/23 19:53 Dose: 650 mg Al Hydroxide/Mg Hydroxide (Magnesium Hydrox/Alum Hydrox 30 Ml Oral.Susp) 30 ml PO Q6H PRN PRN Reason: Heartburn/Nausea Aripiprazole (Aripiprazole 15 Mg Tablet) 15 mg PO DAILY [facility] Last Admin: 05/08/23 08:34 Dose: 15 mg Doxepin HCl (Doxepin Hcl 25 Mg Capsule) 75 mg PO BEDTIME [facility] Last Admin: 05/07/23 21:14 Dose: 75 mg Hydroxyzine HCl (Hydroxyzine Hcl 25 Mg Tablet) 25 mg PO Q6H PRN PRN Reason: Anxiety Last Admin: 05/08/23 05:43 Dose: 25 mg Ibuprofen (Ibuprofen 600 Mg Tablet) 600 mg PO Q6H PRN PRN Reason: Pain, Mild (Pain Scale 1-3) Last Admin: 05/07/23 21:14 Dose: 600 mg Magnesium Hydroxide (Milk Of Magnesia 30 Ml Oral.Susp) 30 ml PO DAILY PRN PRN Reason: Constipation Melatonin (Melatonin 3 Mg Tablet) 6 mg PO BEDTIME [facility] Last Admin: 05/07/23 21:15 Dose: 6 mg Nicotine (Nicotine 14 Mg Patch.Td24) 14 mg TRANSDERMA DAILY [facility] Last Admin: 05/08/23 08:34 Dose: 14 mg Nicotine Polacrilex (Nicotine Polacrilex 2 Mg Gum) 4 mg BUCCAL Q2H PRN PRN Reason: Nicotine Cravings Nicotine Polacrilex (Nicotine Polacrilex 2 Mg Gum) 4 mg BUCCAL Q2H PRN PRN Reason: Nicotine Cravings Propranolol HCl (Propranolol Hcl 10 Mg Tablet) 5 mg PO TID PRN; Protocol PRN Reason: anxiety Last Admin: 05/05/23 19:52 Dose: 5 mg Vitamin D (Cholecalciferol (Vitamin D3) 10 Mcg Tablet) 10 mcg PO DAILY [facility] Last Admin: 05/08/23 08:34 Dose: 10 mcg Allergies Allergies Allergy/AdvReac Type Severity Reaction Status Date / Time No Known Allergies Allergy Verified 09/18/22 23:01 [No Known Allergies*] Assessment & Plan Assessment & Plan (1) Schizoaffective disorder, depressive type: Status: Acute Code(s): F25.1 - Schizoaffective disorder, depressive type (2) PTSD (post-traumatic stress disorder): Status: Acute Code(s): F43.10 - Post-traumatic stress disorder, unspecified Plan Patient is a 47-year-old male with history of schizoaffective disorder, history of substance abuse in sustained remission, who presents after his sister called crisis for decompensation in the community. Patient reports that he has been struggling more since his mother with whom he was living, was diagnosed with dementia and moved out of the house this past summer. Apparently she was on top of his medications and appointments and since then he has not been taking any medication. He says he feels a mental confusion, with ruminating thoughts and quite a bit of depression; patient reports he has been staying by himself in the house rarely leaving. Patient said that this past week his sister came over to the house, found it in extreme disarray, trash all over the place, rotting food and determined that he was not able to care for himself and so called crisis. Patient however feels that his sister is exaggerating his condition in order to force him out of the house so that the house can be sold. Patient says he has been up for the past 3 days but does not think he is having a manic episode and is not sure if he has ever had one. He said he has had insomnia for years. He agrees he has not been bathing very much and does not know why. He endorses auditory hallucinations that come and go throughout the day; he often sees things out of the corner of his eye, as if someone is there but when he looks there is nothing. Patient denies any recent alcohol abuse, not having had a drink for weeks; he denies drug abuse saying that he has not abused oxycodone her Percocets for weeks; he does smoke cannabis daily. Denies SI or HI Collateral Patient asked marketing writer to talk with his sister; his sister Anna did call and added that on Latuda and Abilify he did very well was functional, focused, clear minded with no depression or anxiety. She reports this past August patient had what seems to have been a manic episode, where he was talking fast, saying nonsensical things, paranoid, erratic behavior and grabbed her arm would not like go; however it is not clear the duration of this episode. At that time he also crawled into bed with her and was Caress in her. She reports that this past week he tried to fondle her and rubbed his penis against his 77-year-old aunt. He she says he told police that he still has sexual feelings for his sister Hospital course: Started on Abilify 04/17 patient remains ambivalent and hesitant to start medication; he agrees that Abilify would be his likely 1st choice. Microbiology Professor discussed the cost and benefits of taking Abilify but also of not taking Abilify which would be to remain symptomatic, depressed, confused and struggling to function adequately on his own. Patient complaining of insomnia but refuses medication for it at this time. 04/10 Patient a feeling a little better but still feels confused. Very focused and frustrated with his sisters interventions, saying that he needs someone in his life who is rational and making helpful complements. He complains that his sister is frequently getting angry, yelling, demanding and even interfering; he explains to marketing writer that during him [facility] meeting his sister got so upset that both other clinicians present had to address her incivility and aggressive tone which he says is not what normal people do.. Because of this, He says he does not feel he can turn to her for help, despite her repeatedly telling him that he is mentally ill and that she is not. Patient said no problems with Abilify that he took this past weekend; agrees to get on long-acting injectable, liking the idea that he does not have to worry about remembering to get pills. Patient is anxious about his housing, since his sister kicked him out of his current house and has put up for sale... -of note, provider, social work program coordinator and provider covering on the weekend all attest to patient's sister, healthcare proxy, being demanding, belligerent and unable to accept explanations for treatment plan. Today at [facility] meeting sister started to barrier to patient getting outpatient treatment services and was needed to be asked to change her behavior or leave the meeting. 04/21 patient received Abilify Maintena; patient less depressed, social in the milieu; still odd with some delusional thinking, inappropriate towards [facility] worker; did not discuss this with him yet until can get more details 04/22 still confused and reports having trouble thinking about the various stressful things in his life, his sister, housing, treatment, his mother... Feels that his mind is racing; agrees to increase Abilify p.o. to 10 mg. trouble sleeping and agrees to try clonidine at bedtime Discussed [facility] worker Angy is concern last time about patient being inappropriate; she clarified that patient did not make any inappropriate comments but rather was just getting to physically close to her while looking at paperwork. -of note, patient's sister called [facility] worker supervisor costuming and said that she did have a signed release of information for [facility], which she does not have (and they did not release information). 04/23 says a little better; still some confused/disorganized thinking; much anxiety; will hold of dx of DULCE until Abilify becomes therapeutic to see if psychotic confusion further clears. 04/24 seems to be very slowly improving 04/25 constricted, some delayed in response but slightly more aware of his surrounding- attending more to ADLs. no aggression towards self or others. 04/27 continues to improve, seems a little more organized. Will add doxepin for chronic anxiety and worries as well as insomnia; will also increase clonidine to 0.2 mg for continued insomnia 04/29 remains much improved however continues to have some mental confusion as well as insomnia, which is likely contributory. Patient cited difficulty finding time in the day to take a shower though there is very little to distract him from ADLs. Will increase Abilify to see if can help with mental confusion as it seems very possible that this confusion is at least partly due to psychotic illness; will increase doxepin for continued anxiety and insomnia 04/30 continue current treatment plan 05/01 discontinue clonidine and added propranolol p.r.n. for anxiety at patient's request; patient complains of insomnia but ambivalent about medication. Said okay to a adding Seroquel but not sure if he will take it. Discussed Ambien however patient has a history of sleep walking; mirtazapine not helpful 05/03 continue rx. 05/05 stable; dispo planing; continue plan 05/07 continue current treatment regimen and dispo planning Plan: CV Q 15 minute checks Received Abilify Maintena 400 mg 1 time dose on 04/20 Continue Abilify 15 mg daily; will see if patient is willing to increase; PO should overlap Maintena by at least 2 weeks Continue Doxepin 75mg for anxiety (DULCE?) and insomnia Added propranolol 5 mg t.i.d. p.r.n. for anxiety dc Seroquel Continue trazodone 50 mg q.h.s.; will increase if continued insomnia -Discontinue metformin; patient refuses -patient refused ziprasidone Discontinue clonidine not helping and no longer wants -Microbiology Professor discussed clozapine and lithium with him and printed out literature on benefits/risks/side effects; patient will consider; Reportedly has also done well on Latuda and Abilify in the past though he did develop side effects of tardive dyskinesia and weight gain Time Spent With Patient Time: Total time managing care of this patient today ____ minutes.
--- NOTE | 2023-05-08 14:22 | P.DS_ITS ---
DS: Providers Provider Date of Service: 05/08/23 Date of admission: 04/15/23 23:20 Date of discharge: 05/08/23 Primary care physician: Radha Physician Attending physician on admission: Nikko Blake Attending physician on discharge: Nikko Blake DS: Diagnosis Discharge Diagnosis (1) Schizoaffective disorder, depressive type: Status: Acute (2) PTSD (post-traumatic stress disorder): Status: Acute DS: Medications Discharge Medications Home Medications: Previous Rx's Medication Instructions Recorded acetaminophen 325 mg tablet 650 mg (2 x 325 mg) PO Q6H PRN 05/08/23 Headache/Pain Mild Scale (1-3) #0 tabs aripiprazole 15 mg tablet 15 mg PO DAILY 10 days #10 tabs 05/08/23 aripiprazole 400 mg intramuscular 400 mg IM Q28D 28 days #1 ea 05/08/23 suspension,extended release (Abilify Maintena) cholecalciferol (vitamin D3) 10 10 mcg PO DAILY 30 days #30 tabs 05/08/23 mcg (400 unit) tablet (Vitamin D3) doxepin 25 mg capsule 75 mg (3 x 25 mg) PO BEDTIME 30 05/08/23 days #90 caps hydroxyzine HCl 25 mg tablet 25 mg PO Q6H PRN Anxiety 30 days 05/08/23 #60 tabs ibuprofen 600 mg tablet 600 mg PO Q6H PRN Pain, Mild (Pain 05/08/23 Scale 1-3) #0 tabs melatonin 5 mg tablet 5 mg PO BEDTIME PRN sleep 30 days 05/08/23 #30 tabs nicotine 14 mg/24 hr daily 14 mg transdermal DAILY PRN 05/08/23 transdermal patch smoking cessation 28 days #28 ea propranolol 10 mg tablet 5 mg PO TID PRN anxiety 30 days 05/08/23 #30 tabs Mental Status Exam Mental Status Exam Narrative: Pt is alert and oriented; behavior is cooperative, friendly, calm; dressed in casual attire; a little scruffy with adequate hygiene; mood is described as okay and affect congruent; eye contact appropriate; Speech normal rate, volume and prosody;no psychomotor agitation/retardation present; thought process more goal directed and linear though could still be circumstantial, can get distracted and be perseverative; Thought content is on current struggles, aftercare treatment; no delusional thinking expressed; denies any SI/HI. No AVH; Patients insight and judgment impaired but improved and adequate. DS: Summary Hospital Course Hospital Course: Hpi: Patient is a 47-year-old male with history of schizoaffective disorder, history of substance abuse in sustained remission, who presents after his sister called crisis for decompensation in the community. Patient reports that he has been struggling more since his mother with whom he was living, was diagnosed with dementia and moved out of the house this past summer. Apparently she was on top of his medications and appointments and since then he has not been taking any medication. He says he feels a mental confusion, with ruminating thoughts and quite a bit of depression; patient reports he has been staying by himself in the house rarely leaving. Patient said that this past week his sister came over to the house, found it in extreme disarray, trash all over the place, rotting food and determined that he was not able to care for himself and so called crisis. Patient however feels that his sister is exaggerating his condition in order to force him out of the house so that the house can be sold. Patient says he has been up for the past 3 days but does not think he is having a manic episode and is not sure if he has ever had one. He said he has had insomnia for years. He agrees he has not been bathing very much and does not know why. He endorses auditory hallucinations that come and go throughout the day; he often sees things out of the corner of his eye, as if someone is there but when he looks there is nothing. Patient denies any recent alcohol abuse, not having had a drink for weeks; he denies drug abuse saying that he has not abused oxycodone her Percocets for weeks; he does smoke cannabis daily. Denies SI or HI Collateral Patient asked typewriter repairer to talk with his sister; his sister Anna did call and added that on and he did very well was functional, focused, clear minded with no depression or anxiety. She reports this past August patient had what seems to have been a manic episode, where he was talking fast, saying nonsensical things, paranoid, erratic behavior and grabbed her arm would not like go; however it is not clear the duration of this episode. At that time he also crawled into bed with her and was Caress in her. She reports that this past week he tried to fondle her and rubbed his penis against his 77-year-old aunt. He she says he told police that he still has sexual feelings for his sister Hospital course: Started on Abilify 04/17 patient remains ambivalent and hesitant to start medication; he agrees that Abilify would be his likely 1st choice. Cardiopulmonary Technician And Eeg Tech discussed the cost and benefits of taking Abilify but also of not taking Abilify which would be to remain symptomatic, depressed, confused and struggling to function adequately on his own. Patient complaining of insomnia but refuses medication for it at this time. 04/10 Patient a feeling a little better but still feels confused. Very focused and frustrated with his sisters interventions, saying that he needs someone in his life who is rational and making helpful complements. He complains that his sister is frequently getting angry, yelling, demanding and even interfering; he explains to typewriter repairer that during him [facility] meeting his sister got so upset that both other clinicians present had to address her incivility and aggressive tone which he says is not what normal people do.. Because of this, He says he does not feel he can turn to her for help, despite her repeatedly telling him that he is mentally ill and that she is not. Patient said no problems with Abilify that he took this past weekend; agrees to get on long-acting injectable, liking the idea that he does not have to worry about remembering to get pills. Patient is anxious about his housing, since his sister kicked him out of his current house and has put up for sale... -of note, provider, social media designer and provider covering on the weekend all attest to patient's sister, healthcare proxy, being demanding, belligerent and unable to accept explanations for treatment plan. Today at [facility] meeting sister started to barrier to patient getting outpatient treatment services and was needed to be asked to change her behavior or leave the meeting. 04/21 patient received Abilify Maintena; patient less depressed, social in the milieu; still odd with some delusional thinking, inappropriate towards [facility] worker; did not discuss this with him yet until can get more details 04/22 still confused and reports having trouble thinking about the various stressful things in his life, his sister, housing, treatment, his mother... Feels that his mind is racing; agrees to increase Abilify p.o. to 10 mg. trouble sleeping and agrees to try clonidine at bedtime Discussed [facility] worker Angy is concern last time about patient being inappropriate; she clarified that patient did not make any inappropriate comments but rather was just getting to physically close to her while looking at paperwork. -of note, patient's sister called [facility] worker shuttle preparation supervisor and said that she did have a signed release of information for [facility], which she does not have (and they did not release information). 04/23 says a little better; still some confused/disorganized thinking; much anxiety; will hold of dx of DULCE until Abilify becomes therapeutic to see if psychotic confusion further clears. 04/24 seems to be very slowly improving 04/25 constricted, some delayed in response but slightly more aware of his surrounding- attending more to ADLs. no aggression towards self or others. 04/27 continues to improve, seems a little more organized. Will add doxepin for chronic anxiety and worries as well as insomnia; will also increase clonidine to 0.2 mg for continued insomnia 04/29 remains much improved however continues to have some mental confusion as well as insomnia, which is likely contributory. Patient cited difficulty finding time in the day to take a shower though there is very little to distract him from ADLs. Will increase Abilify to see if can help with mental confusion as it seems very possible that this confusion is at least partly due to psychotic illness; will increase doxepin for continued anxiety and insomnia 04/30 continue current treatment plan 05/01 discontinue clonidine and added propranolol p.r.n. for anxiety at patient's request; patient complains of insomnia but ambivalent about medication. Said okay to a adding Seroquel but not sure if he will take it. Discussed Ambien however patient has a history of sleep walking; mirtazapine not helpful 05/03-05/06 continue rx.; stable; dispo planing; continue plan 05/07 Patient reports overall feeling stable. Although intermittent anxiety, he agrees that life has ups and Downs and reports he has more good days than otherwise. Patient reports sleeping better and feels that medication regimen is adequate. He is looking forward to discharging to respite soon. Discussed patient's use of coping skills on the unit; Discussing aftercare plans about getting in shape and keeping himself busy. Remains in good behavioral and impulse control on the unit, appropriate with peers and staff. Patient is stable, in a good mood, in good behavioral and impulse control and optimistic. He is not in imminent risk for harm to self or others and appropriate to continue treatment in the community Medications: Abilify Maintena 400mg IM; Continue Abilify 15 mg daily to overlap Maintena by at least 2 weeks Doxepin 75mg for anxiety and insomnia propranolol 5 mg t.i.d. p.r.n. for anxiety Time spent discussing smoking cessation with patient: 3 to 10 minutes Status at Discharge Functional status at discharge: independent ambulation Overall status at discharge: patient is back to baseline Time Spent with Patient Time attestation: Total time managing care of this patient today ____ minutes. Time spent: Less than 30 minutes Discharge Plan Discharge Anticipated Discharge Date/Time: 05/08/23 15:00 Patient Disposition: Prison Discharge Diagnosis: Schizoaffective disorder, bipolar type Referrals: [facility] holly Kuhn [Other] - 05/19/23 2:20 pm (Telehealth) [facility] [Other] - 1 Week [facility] w Christine Mcclellan [Other] - 1 Week (Therapist will call w appt. TeleFootbalistic) Maicol Toussaint MD [Physician] - 05/15/23 2:50 pm (in office) Discharge Medications: New propranolol 10 mg Tablet 5 mg PO TID PRN (Reason: anxiety) 30 Days Qty: 30 1RF Protocol: Hold for SBP/HR < HOLD for SBP < : 90 HOLD for HR < : 60 acetaminophen 325 mg Tablet 650 mg PO Q6H PRN (Reason: Headache/Pain Mild Scale (1-3)) Qty: 0 0RF aripiprazole 15 mg Tablet 15 mg PO DAILY 10 Days Qty: 10 0RF doxepin 25 mg Capsule 75 mg PO BEDTIME 30 Days Qty: 90 1RF hydroxyzine HCl 25 mg Tablet 25 mg PO Q6H PRN (Reason: Anxiety) 30 Days Qty: 60 1RF ibuprofen 600 mg Tablet 600 mg PO Q6H PRN (Reason: Pain, Mild (Pain Scale 1-3)) Qty: 0 0RF cholecalciferol (vitamin D3) [Vitamin D3] 10 mcg (400 unit) Tablet 10 mcg PO DAILY 30 Days Qty: 30 1RF Abilify Maintena 400 mg suspension,extended rel recon 400 mg IM Q28D 28 Days Qty: 1 1RF Rx Instructions: due on 05/18/23 Changed nicotine 14 mg/24 hr Patch 24 Hour 14 mg transdermal DAILY PRN (Reason: smoking cessation) 28 Days Qty: 28 0RF Rx Instructions: remove at bedtime melatonin 5 mg tablet 5 mg PO BEDTIME PRN (Reason: sleep) 30 Days Qty: 30 1RF Discontinued nicotine (polacrilex) 2 mg Gum 4 mg buccal Q2H PRN (Reason: Nicotine Cravings) Qty: 50 0RF ziprasidone HCl 80 mg Capsule 80 mg PO DAILY@1800 Qty: 30 0RF ziprasidone HCl 40 mg Capsule 40 mg PO DAILY Qty: 30 0RF metformin 500 mg tablet 1 tab PO DAILY 30 Days Qty: 30 0RF Discharge Orders: Discharge Order (Routine); Ordered 05/08/23 Ordered By: Nikko Blake Diet: Regular diet Activity on Discharge: As tolerated Stand Alone Forms: Patient Portal Discharge page, Community Support Care Plan Goals: Maintain mood and safe behaviors Take medications as prescribed Continue to pursue sobriety Practice coping skills Continue with outpatient providers and reach out to them as needed Health Concerns: Mood stability and behaviors Sobriety Hypertension Plan of Treatment: Follow up with your PCP, psychiatric provider and other outpatient providers regarding above concerns Take medications as prescribed Assessment: Risk assessment at time of discharge:? Patient was interviewed prior to discharge and found to be fully oriented and without any SI or HI. Patient has improved insight and judgment and wants to continue treatment. Patient is not in imminent risk of harm to self or others and has a safety plan that includes presenting to the closest ER or calling 911 if feeling unsafe.? Patient has been observed closely by nursing and unit staff throughout admission; patient has not engaged in any behaviors that suggest dangerousness to self or others and has demonstrated appropriate behaviors and impulse control Discharge Date/Time: 05/08/23 15:02
== END 2023-05-08 15:02 | disposition home or self-care (01) | DRG 885 ==
LOC: HO.ED 04-15 14:33 → HO.PM5 04-15 23:22
PROVIDERS: Admitting Provider Psychiatry & Neurology Psychiatry; Emergency Provider Emergency Medicine; Visit Provider Psychiatry & Neurology Psychiatry
DX: F25.1 Schizoaffective disorder, depressive type (principal); F43.10 Post-traumatic stress disorder, unspecified; F17.210 Nicotine dependence, cigarettes, uncomplicated; Z20.822 Contact with and (suspected) exposure to COVID-19; Z91.148 Patient's other noncompliance with medication regimen for other reason; Z71.6 Tobacco abuse counseling; Z79.899 Other long term (current) drug therapy
CPT/HCPCS: 36415; 80048; 80061; 80076; 80307; 81001; 81003; 83036; 85025; 87635; 99285; J0401

== ENCOUNTER → 2023-04-15 23:20 | Outpatient (BNV) | payer OTHER, SELFPAY | PROVIDERS: Admitting Provider Psychiatry & Neurology Psychiatry; Emergency Provider Emergency Medicine; Visit Provider Psychiatry & Neurology Psychiatry | DX: F25.1 Schizoaffective disorder, depressive type (principal); F43.11 Post-traumatic stress disorder, acute | CPT/HCPCS: 90792; 99231; 99232; 99238 ==